=== PATIENT | female | born 1935 | race African-American/Black ===

== ENCOUNTER 2017-04-26 08:14 | Inpatient (IN) | payer MEDICARE, MEDICAID ==
[2017-04-26] MEDS ORDERED: Acetaminophen 1,000 MG in Premix Bag 1 BAG IVPB SCH (08:30)
[2017-04-26 08:55] LABS: Hematocrit 34.4 % (36.0-47.0); Mean Platelet Volume 9.9 fL (7.4-10.4); Red Blood Cell (RBC) Count 4.29 mill/uL (4.20-5.40)
[2017-04-26 08:56] LABS: Lactic Acid - Sepsis 1.9 mmol/L (0.5-2.2)
[2017-04-26 08:59] LABS: ALT (SGPT) 50 U/L (8-55); AST (SGOT) 117 U/L (5-34); Alkaline Phosphatase 55 U/L (40-150); Anion Gap 29 mmol/L (10-20); BUN (Urea Nitrogen) 76 mg/dL (9.8-20.1); Bilirubin, Total 0.6 mg/dL (0.2-1.2); Calc. Creatinine Clearance 0 mL/min (70-130); Calcium 9.4 mg/dL (7.8-10.44); Carbon Dioxide 17 mmol/L (23-31); Chloride 103 mmol/L (98-107); Estimated GFR-MDRD 5; Globulin 4.6 g/dL (2.4-3.5); Protein, Total 8.3 g/dL (6.0-8.3)
[2017-04-26 09:14] LABS: Anisocytosis SLIGHT = 6-15 cells (100X) (0-5/hpf); Hypochromia SLIGHT = 6-15 cells (100X) (0-5/hpf); Neutrophil 95 % (42-75); Target Cells SLIGHT = 2-5 cells (100X) (0-1/hpf)
[2017-04-26] MEDS ORDERED: Piperacillin/Tazobactam 3.375 GM in Sodium Chloride 0.9% 100 ML IVPB SCH (09:30)
--- NOTE | 2017-04-26 09:59 | RAD ---
RADIOGRAPH CHEST 1 VIEW: HISTORY: An 82-year-old female with fever. FINDINGS: The thoracic aorta is tortuous and ectatic. There is no evidence of air space density, pneumothorax , or pulmonary edema. The lateral costophrenic angles are sharp. There is no cardiomegaly. There is no interval change since 03/27/2017. IMPRESSION: 1) No acute pulmonary findings. 2) Ectasia of thoracic aorta. 3) Left subclavian dual lead pacemaker. vamsi [] POS: STEPHEN
[2017-04-26 10:29] LABS: Bilirubin Negative (Negative); Blood, Urine Moderate (Negative); Glucose, Urine (Dipstick) Negative (Negative); Ketone, Urine Negative (Negative); Nitrite Negative (Negative); Protein, Urine (Dipstick) 100 mg/dL (Neg-Trace); Urobilinogen 0.2 mg/dL (0.2-1.0)
[2017-04-26 10:31] LABS: Bacteria/HPF Rare-Few HPF (None Seen); Hyaline Casts/LPF 7-10 HYALINE CAST LPF (0-3 Hyaline); Squamous Epithelial 0-3 HPF (0-3)
[2017-04-26 10:44] LABS: Yeast-All Forms None Seen HPF (None Seen)
[2017-04-26 11:29] LABS: Prothrombin Time 63.7 SEC (12.0-14.7)
[2017-04-26 11:30] LABS: PTT 85.1 SEC (22.9-36.1)
[2017-04-26] MEDS ORDERED: Acetaminophen 650 MG/20.3 ML UDCUP PO PRN (12:26)
[2017-04-26] MEDS ORDERED: Acetaminophen 325 MG TAB PO PRN (12:26)
[2017-04-26] MEDS ORDERED: Vancomycin HCl 1 GM in Premix Bag 1 BAG IVPB SCH ×3 (12:30→21:00)
[2017-04-26] MEDS ORDERED: Meropenem 1 GM in Sodium Chloride 0.9% 100 ML IVPB SCH (12:30)
[2017-04-26] MEDS ORDERED: Vancomycin HCl 750 MG in Sodium Chloride 0.9% 250 ML 250 ML IVPB SCH (12:45)
[2017-04-26] MEDS ORDERED: Vancomycin HCl 500 MG in Sodium Chloride 0.9% 100 ML IVPB SCH (12:45)
[2017-04-26] MEDS ORDERED: Vancomycin HCl 1.25 GM in Sodium Chloride 0.9% 250 ML 250 ML IVPB SCH (12:45)
[2017-04-26] MEDS ORDERED: HOLD VANCOMYCIN FOR LEVEL >20 FS SCH (12:45)
[2017-04-26] MEDS ORDERED: Vancomycin Sliding Scale 1 EACH FS ONE (12:45)
[2017-04-26] MEDS ORDERED: Acetaminophen 1,000 MG in Premix Bag 1 BAG IVPB PRN ×2 (13:28→13:31)
[2017-04-26] MEDS ORDERED: Dextrose 5% in Water 1,000 ML IV PRN (13:45)
[2017-04-26] MEDS ORDERED: Insulin Regular 300 UNITS/3 ML VIAL SC PRN ×2 (13:45)
[2017-04-26] MEDS ORDERED: Ondansetron HCl/PF 4 MG/2 ML Vial IVP PRN (13:46)
[2017-04-26] MEDS ORDERED: Bisacodyl 10 MG SUPP PR PRN (13:46)
[2017-04-26] MEDS ORDERED: Ondansetron ODT 4 MG TAB PO PRN (13:46)
[2017-04-26] MEDS ORDERED: Diabetic Tussin 200 MG/10 ML UDCUP PO PRN (13:51)
[2017-04-26] MEDS ORDERED: Eucerin (Mineral Oil/Petrolatum,White) 30 gm Jar TOP PRN (13:51)
[2017-04-26] MEDS ORDERED: WARFARIN PO PRN ×2 (14:08→14:14)
--- NOTE | 2017-04-26 15:50 | HP ---
DATE OF ADMISSION: 04/26/2017 PRIMARY CARE PHYSICIAN: Anjali Mai M.D. The patient resides at [facility]. CODE STATUS: The patient is FULL CODE. This was confirmed with the daughter, who is the DPOA at th e bedside. CHIEF COMPLAINT: Fever. HISTORY OF PRESENT ILLNESS: The patient is an 82-year-old female with end-stage renal disease on he modialysis Thursday, Thursday, and Thursday; DVT and PE in the past, on chronic anticoagulation; scarlet ia; diabetes mellitus type 2; coronary artery disease and peripheral vascular disease, status post r ight pgyur-dho-rqho amputation. She was brought into the emergency room with fever. Please refer t o the recent discharge summary from 04/12/2017 for recent hospitalization. The patient was found to have fever along with low oxygen saturation, for which EMS was called. She had generalized chills. There was also altered mentation at the nursing facility. For this reason , she was brought to the emergency room. At the time of my evaluation, the patient is confused and not much information is available from the patient. In the emergency room, her initial vital signs showed temperature of 105.1 rectally, pulse of 73, bl ood pressure of 97/64 with lowest blood pressure of 72/48 in the emergency room with a pulse rate of 104, O2 saturation 100% on nonrebreather. A chest x-ray was negative for infiltrate. Urinalysis w as consistent with greater than 50 wbc's with large leukocyte esterase and nitrite negative. Lactic acid was normal. CRP was 15.1. She received vancomycin and Zosyn with 2 L IV fluid and IV Tylenol in the emergency room. PAST MEDICAL HISTORY: 1. End-stage renal disease on hemodialysis. The patient has been noncompliant with hemodialysis. She refused hemodialysis last Thursday. 2. History of DVT with suspected PE, on anticoagulation. 3. Diabetes mellitus type 2. 4. Dementia. 5. Gastroesophageal reflux disease. 6. Coronary artery disease. 7. Peripheral vascular disease, status post right crfem-gip-kcfy amputation. 8. Sick sinus syndrome, status post pacemaker. 9. Left eye blindness. 10. Thalassemia minor. PAST SURGICAL HISTORY: 1. Dialysis access. 2. Cholecystectomy. 3. Right yvjut-vip-mcvh amputation. 4. Appendectomy. ALLERGIES: The patient is allergic to OPTIFLUX DIALYSIS MEMBRANE. CURRENT HOME MEDICATIONS: To be verified with the nursing facility. SOCIAL HISTORY: The patient currently resides at [facility]. No tobacco, alcohol o r drug use. She has very good family support. The family was planning to start hospice service on the patient. She is FULL CODE. FAMILY HISTORY: Positive for diabetes. REVIEW OF SYSTEMS: Cannot be obtained from the patient due to current cognitive status. PHYSICAL EXAMINATION: VITAL SIGNS: As discussed above. GENERAL: An 82-year-old female, contracted, not following commands and confused. HEENT: Head is atraumatic, normocephalic. Sclerae are anicteric. Dry mucous membranes. No oral l esion. NECK: Supple, no JVD, no neck stiffness. LUNGS: Showed decreased air entry at bilateral bases. No rales or rhonchi. HEART: S1, S2 present, tachycardic, 2/6 systolic murmur over the mitral area. ABDOMEN: Soft, bowel sounds present, no rebound, guarding, or costovertebral angle tenderness appre ciated. EXTREMITIES: The patient is status post right yyurm-nqw-yqvd amputation. There was no swelling or tenderness noted in the left lower extremities. NEUROLOGIC: Could not be done due to reason discussed above. PSYCHIATRIC: Could not be done due to reason discussed above. SKIN: Warm and dry. LYMPH NODES: No palpable lymph nodes in the neck. PERIPHERAL VASCULAR: Radial pulses palpable bilaterally, low volume. LABORATORY FINDINGS: 1. CBC showed WBC 9 with 95% neutrophils, hemoglobin 10.7. 2. INR of 6.9. 3. Bicarbonate of 17 with a BUN of 76 and creatinine 9.58. 4. BNP around 1600. Cortisol was 24.2. 5. Ketones was 0.54. Chest x-ray by my review as discussed above. Telemetry monitoring by my review showed sinus tachycardia. IMPRESSION: 1. Severe sepsis with acute organ dysfunction secondary to urinary tract infection. 2. Hypotension, responding to IV fluids. 3. Sick sinus syndrome, status post pacemaker. 4. Coronary artery disease. 5. End-stage renal disease with hemodialysis Thursday, Thursday, and Thursday. The patient missed hem odialysis on last Thursday. 6. Diabetes mellitus type 2. 7. Anxiety and depression. 8. Peripheral vascular disease, status post right csmmy-esd-gfgd amputation. 9. Dementia per previous record. 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 11. Thalassemia minor. 12. Gastroesophageal reflux disease. 13. History of deep venous thrombosis and pulmonary embolism, on anticoagulation. The patient has supratherapeutic INR. 14. Starvation ketosis. 15. Metabolic acidosis, probably secondary to missed hemodialysis and sepsis. 16. Chronic anemia, probably secondary to renal insufficiency. PLAN: The patient will be monitored in the intermediate care unit. We will continue vancomycin and meropenem. We will get renal ultrasound in a.m. We will consult Critical Care as well as nephrolo gist. Gentle intravenous hydration. We will consider stress dose steroids if her blood pressure do es not respond to IV fluids. Repeat labs in a.m. Plan of care was discussed with the patient's family at the bedside. They stated understanding.
--- NOTE | 2017-04-26 16:20 | CON ---
DATE OF CONSULTATION: 04/26/2017 REASON FOR CONSULTATION: Urosepsis. HISTORY OF PRESENT ILLNESS: The patient is an 82-year-old female from a [place] [facility], who was broug ht to the hospital with altered mental status. She was felt to be an urosepsis and has been admitte d to the Intermediate Care Unit for care. The history was obtained from looking at old records and speaking with the patient's daughter who is at bedside. Apparently, Ms. Dominguez has been doing poorly for at least the last 3 or 4 days. Over t he last 24 hours, she has developed fever at baseline. I am not sure how communicative she is as I am getting different counts from family members. I know that she has been sick enough to where they were contemplating entering her into a hospice program. PAST MEDICAL HISTORY: 1. End-stage renal disease, requiring hemodialysis -- she apparently had been refusing dialysis all this week. 2. Dementia. 3. Diabetes mellitus type 2. 4. Gastroesophageal reflux. 5. Coronary artery disease. 6. Thalassemia minor. 7. Blindness. 8. Deep venous thrombosis. 9. Sick sinus syndrome. PAST SURGICAL HISTORY: 1. She has had a right qzhbq-ubj-teni amputation. 2. Right salpingo-oophorectomy. 3. Appendectomy. 4. Cholecystectomy. 5. Left forearm dialysis fistula. FAMILY MEDICAL HISTORY: Remarkable for diabetes. ALLERGIES: OPTIFLUX dialysis membrane. SOCIAL HISTORY: Nonsmoker, nondrinker. She lives in [facility] on [address] [place] [address]. MEDICATIONS PRIOR TO ADMISSION: Nepro Carb Steady 240 mL daily, DuoNeb 4 times daily, Keflex 500 mg t.i.d., Renvela 1 packet t.i.d., Senokot 2 tablets nightly as needed, MiraLax 17 grams daily, Zofra n 4 grams every 6 hours as needed, omeprazole 20 mg daily, Nephro-Leeann 1 tablet daily, iron sulfate 325 mg daily, Tylenol 650 mg every 4 hours as needed, Apresoline 50 mg t.i.d., Zoloft 100 mg daily, metoprolol 100 mg b.i.d., docusate 100 mg b.i.d., tramadol 50 mg t.i.d., guaifenesin 1 tablet b.i.d. , amlodipine 10 mg b.i.d., trazodone 50 mg nightly, Coumadin 5 mg daily, and atorvastatin 20 mg alison y. REVIEW OF SYSTEMS: Cannot be obtained from the patient as she has altered mental status. PHYSICAL EXAMINATION: VITAL SIGNS: Her temperature is 102.6, pulse 101, respirations 18, O2 sat 100% on 4 liters, blood p ressure 131/63. GENERAL: She is obtunded -Burmese female, who moans with stimulation, but cannot cooperate with exam. HEENT: Difficult to tell about pupillary reflex. Nose clear. Oropharynx dry. NECK: No JVD. LUNGS: Fairly clear anteriorly. CARDIOVASCULAR: S1, S2, irregularly irregular without murmur. ABDOMEN: Soft, nontender. EXTREMITIES: She has a right owmgu-wox-qnax amputation. She had a left forearm AV fistula. LABORATORY AND X-RAY FINDINGS: Chest x-ray showed no evidence of infiltrate. White blood cell coun t is 9.0, hematocrit 34.4, platelet count 202. INR 6.9. Sodium 144, potassium 4.8, chloride 103, C O2 17, BUN 76, creatinine 9.5, glucose 115, AST 117, ALT 50. C-reactive protein 15. Cortisol 24.2. Urinalysis showed too numerous to count white blood cells. Beta hydroxybutyrate 0.54. ASSESSMENT: 1. Urosepsis. 2. Altered mental status. 3. End-stage renal disease, requiring hemodialysis. 4. Dementia. 5. Severe debilitation. RECOMMENDATIONS: 1. I spoke with the family. Apparently, the patient is to remain FULL CODE for the time being, alt camryn I do think the family has understanding that the patient has near the end of her life. 2. Agree with the current antibiotics, Zosyn and vancomycin. 3. Withhold blood pressure medications. 4. Withhold anticoagulation until PT/INR corrected. Thank you for the referral. We will follow.
[2017-04-26] MEDS ORDERED: Meropenem 500 MG in Sodium Chloride 0.9% 100 ML IVPB SCH (17:00)
[2017-04-26] MEDS: Dextrose 5 % And 0.9 % NaCl 1,000 ML IV SCH (17:19)
[2017-04-26] MEDS: Famotidine 40 MG/4 ML VIAL SLOW IVP SCH (20:54)
[2017-04-26] MEDS ORDERED: Piperacillin/Tazobactam 2.25 GM in Sodium Chloride 0.9% 100 ML IVPB SCH (21:00)
[2017-04-27 04:39] LABS: #Lymphocytes 1.4 thou/uL (1.20-3.40); #Monocytes 1.2 thou/uL (0.11-0.59); #Neutrophils 6.4 thou/uL (1.40-6.50); %Basophils 0.4 % (0.0-1.0); %Eosinophils 0.5 % (0.0-10.0); %Lymphocytes 15.9 % (21.0-51.0); %Monocytes 13.1 % (0.0-10.0); Hematocrit 26.8 % (36.0-47.0); Red Blood Cell (RBC) Count 3.34 mill/uL (4.20-5.40); White Blood Cell (WBC) Count 9.1 thou/uL (4.8-10.8)
[2017-04-27 05:05] LABS: ALT (SGPT) 36 U/L (8-55); AST (SGOT) 79 U/L (5-34); Alkaline Phosphatase 38 U/L (40-150); Anion Gap 24 mmol/L (10-20); BUN (Urea Nitrogen) 88 mg/dL (9.8-20.1); Bilirubin, Total 0.5 mg/dL (0.2-1.2); Calc. Creatinine Clearance 4 mL/min (70-130); Calcium 7.9 mg/dL (7.8-10.44); Carbon Dioxide 13 mmol/L (23-31); Chloride 110 mmol/L (98-107); Estimated GFR-MDRD 5; Globulin 3.5 g/dL (2.4-3.5); Magnesium 2.6 mg/dL (1.6-2.6); Protein, Total 6.2 g/dL (6.0-8.3)
[2017-04-27 06:27] LABS: Prothrombin Time 73.6 SEC (12.0-14.7)
[2017-04-27] MEDS ORDERED: ADMIXTURE FEE IVPB SCH (08:45)
[2017-04-27] MEDS ORDERED: PHYTONADIONE IVPB SCH (08:45)
[2017-04-27] MEDS ORDERED: SODIUM CHLORIDE IVPB SCH (08:45)
--- NOTE | 2017-04-27 09:22 | PRG ---
DATE OF SERVICE: 04/27/2017 She is a little more alert than yesterday. PHYSICAL EXAMINATION: VITAL SIGNS: Temperature 99.7, pulse 60, respiration 29, O2 sat 100%, blood pressure 102/32. HEENT: Unremarkable except for tongue hanging out. NECK: No JVD. CHEST: Clear. CARDIAC: S1, S2 regular. ABDOMEN: Soft. EXTREMITIES: Left forearm fistula. LABORATORY DATA: White blood cell count 9.1, hematocrit 26.8, platelet count 133. INR today is 8.2 . Sodium 143, potassium 4.4, chloride 110, CO2 13, BUN 80, creatinine 9.3. Glucose 102. ASSESSMENT: 1. Urosepsis 2. Advanced age. 3. Severe deconditioning. 4. Coagulopathy. RECOMMENDATIONS: Given her severe coagulopathy I would go ahead and give her a little vitamin K. A gain, I will withhold anticoagulation.
[2017-04-27] MEDS: Dextrose 5 % And 0.9 % NaCl 1,000 ML IV SCH ×2 (11:16→18:11)
--- NOTE | 2017-04-27 13:29 | PDOC.PN ---
- Subjective Encounter Start Date: 04/27/17 Encounter Start Time: 12:45 -: non-verbal Patient seen and examined. Shivering improved. No overnight events - Objective MAR Reviewed: Yes Vital Signs & Weight: Vital Signs (12 hours) Temp Pulse Resp BP Pulse Ox 04/27/17 11:32 100.0 F H 63 18 113/15 L 04/27/17 08:00 100.0 F H 63 18 98 04/27/17 07:17 99.7 F H 60 20 102/11 L 100 04/27/17 04:29 99 04/27/17 04:10 99.5 F 61 20 109/32 L 99 04/27/17 02:00 99.9 F H 60 20 101/27 L 99 I&O: 04/26/17 04/27/17 04/28/17 06:59 06:59 06:59 Intake Total 960 Output Total 100 Balance 860 Result Diagrams: 04/27/17 04:18 04/27/17 04:18 Additional Labs: Accuchecks 04/27/17 04/27/17 04/27/17 11:17 04:11 00:13 POC Glucose 132 H 106 109 04/26/17 04/26/17 20:08 17:42 POC Glucose 95 95 EKG Reviewed by me: Yes (Tele SR) Phys Exam - Physical Examination Constitutional: NAD Respiratory: no wheezing, no rhonchi Cardiovascular: RRR, no rub Gastrointestinal: soft, positive bowel sounds Musculoskeletal: no edema Neurological: moves all 4 limbs (spont) Dx/Plan - Plan IMPRESSION: 1. Severe sepsis with acute organ dysfunction secondary to urinary tract infection.on Vanc/Meropenem 2. Hypotension, responding to IV fluids. 3. Sick sinus syndrome, status post pacemaker. 4. Coronary artery disease. 5. End-stage renal disease with hemodialysis Thursday, Thursday, and Thursday. The patient missed hemodialysis on last Thursday. 6. Diabetes mellitus type 2. on sliding scale 7. Anxiety and depression. 8. Peripheral vascular disease, status post right obzyk-zbe-rqdq amputation. 9. Dementia per previous record. 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 11. Thalassemia minor. 12. Gastroesophageal reflux disease. 13. History of deep venous thrombosis and pulmonary embolism, on anticoagulation with supratherapeutic INR. 14. Starvation ketosis. 15. Metabolic acidosis, probably secondary to missed hemodialysis and sepsis. 16. Chronic anemia, probably secondary to renal insufficiency. PLAN: * Critical care/Nephrology follwing * Reduce IVF to 50 ml/hr * AM labs * HD today per Nephrology * Receiving Vit K IV for elevated INR * Cont to monitor * Palliative care team following * Resume Tramadol/zoloft * Start modified diet per PATHOLOGY TECHNICIAN. * Cont other meds as below Review of Systems - Review of Systems Other: Cannot obtain due to current cognition - Medications/Allergies Allergies/Adverse Reactions: Allergies Allergy/AdvReac Type Severity Reaction Status Date / Time [employer] DIALYSIS MEMBRANE Allergy Severe Anaphylaxis Uncoded 04/26/17 12:23 Medications: Current Medications Acetaminophen (Tylenol) 650 mg HI Q4H PRN PRN Reason: Headache/Fever or Pain Acetaminophen (Tylenol) 650 mg PO Q4H PRN PRN Reason: Headache/Fever or Pain Albuterol/Ipratropium (Duoneb) 3 ml NEB [id number] PRN PRN Reason: SOB &/or Wheezing Bisacodyl (Dulcolax) 10 mg HI Q24H PRN PRN Reason: Constipation Dextrose/Water (Dextrose 50%) 25 gm SLOW IVP PRN PRN PRN Reason: Hypoglycemia Famotidine (Pepcid) 20 mg PO BID SHANA Glucagon (Glucagon) 1 mg IM PRN PRN PRN Reason: Hypoglycemia Guaifenesin (Robitussin Sf) 200 mg PO Q4H PRN PRN Reason: Cough Vancomycin HCl 1.25 gm/ Sodium (Chloride) 250 mls @ 166.667 mls/hr IVPB WILLCALL SHANA Vancomycin HCl 1 gm/ Device 200 mls @ 200 mls/hr IVPB WILLCALL SHANA Vancomycin HCl 750 mg/ Sodium (Chloride) 250 mls @ 250 mls/hr IVPB WILLCALL SHANA Vancomycin HCl 500 mg/ Sodium (Chloride) 100 mls @ 100 mls/hr IVPB WILLCALL SHANA Dextrose/Water (D5w) 1,000 mls @ 0 mls/hr IV .Q0M PRN; As Directed PRN Reason: Hypoglycemia Meropenem 500 mg/ Sodium (Chloride) 100 mls @ 200 mls/hr IVPB Q24HR SHANA Last Admin: 04/26/17 17:19 Dose: 100 mls Dextrose/Sodium Chloride (D5 0.9% Ns) 1,000 mls @ 50 mls/hr IV .Q20H [facility] Insulin Human Regular (Humulin R) 0 units SC .MILD SLIDING SCALE PRN PRN Reason: Mild Correctional Scale Insulin Human Regular (Humulin R) 0 units SC .BEDTIME SLIDING SC PRN PRN Reason: Bedtime Correctional Scale Mineral Oil/White Petrolatum (Eucerin Cream) 0 gm TOP BIDPRN PRN PRN Reason: Dry Skin Miscellaneous Medication (Pharmacy To Dose) 1 each IVPB PRN PRN PRN Reason: Pharmacy to dose Miscellaneous Medication (Pharmacy To Dose) 1 each PO PRN PRN PRN Reason: GOAL INR = 2-3 Hold Vancomycin For (Level >20) 0 each FS .AT DIALYSIS SHANA Ondansetron HCl (Zofran Odt) 4 mg PO Q6H PRN PRN Reason: Nausea/Vomiting Ondansetron HCl (Zofran) 4 mg IVP Q6H PRN PRN Reason: Nausea/Vomiting Saccharomyces Boulardii (Florastor) 250 mg PO DAILY SHA[facility] Sertraline HCl (Zoloft) 100 mg PO DAILY [facility] Tramadol HCl (Ultram) 50 mg PO Q4H PRN PRN Reason: pain
--- NOTE | 2017-04-27 14:56 | ULT ---
COMPLETE BILATERAL RENAL ULTRASOUND: HISTORY: An 82-year-old female with sepsis and urinary tract infection with concern for obstructive uropathy. FINDINGS: The right kidney measures 8.5 x 5.3 x 4.5 cm and contains a 1.2 cm cyst. The left kidney is smaller , measuring 6.9 x 3.9 x 3.9 cm. The bladder is empty with a Mclean catheter in place. Both kidneys show marked renal cortical hyperechogenicity, consistent with nonspecific chronic renal disease. IMPRESSION: 1. Small kidneys bilaterally, particularly on the left side, with increased cortical echogenicity, consistent with nonspecific chronic renal disease. 2. No hydronephrosis. POS: DAMIAN
[2017-04-27 15:11] LABS: Vancomycin, Random 13.6 ug/mL (See Comment)
[2017-04-27 16:25] LABS: Prothrombin Time 28.7 SEC (12.0-14.7)
[2017-04-27] MEDS ORDERED: Warfarin Sodium 3 MG TAB PO SCH (18:00)
[2017-04-27] MEDS: Meropenem 500 MG in Sodium Chloride 0.9% 100 ML IVPB SCH (18:11)
[2017-04-27] MEDS: Famotidine 40 MG/4 ML VIAL SLOW IVP SCH (18:19)
[2017-04-27] MEDS: Famotidine 20 MG TAB PO SCH (21:02)
[2017-04-27] MEDS: Acetaminophen 325 MG TAB PO PRN (21:03)
[2017-04-28 04:32] LABS: Prothrombin Time 20.2 SEC (12.0-14.7)
[2017-04-28 04:42] LABS: Red Blood Cell (RBC) Count 3.22 mill/uL (4.20-5.40); White Blood Cell (WBC) Count 8.9 thou/uL (4.8-10.8)
[2017-04-28 04:43] LABS: #Eosinphils 0.1 thou/uL (0.0-0.7); #Lymphocytes 1.1 thou/uL (1.20-3.40); #Monocytes 0.9 thou/uL (0.11-0.59); #Neutrophils 6.8 thou/uL (1.40-6.50); %Basophils 0.3 % (0.0-1.0); %Eosinophils 1.2 % (0.0-10.0); %Monocytes 9.9 % (0.0-10.0); Hematocrit 26.6 % (36.0-47.0); Mean Platelet Volume 10.4 fL (7.4-10.4)
[2017-04-28 04:57] LABS: Anion Gap 16 mmol/L (10-20); BUN (Urea Nitrogen) 35 mg/dL (9.8-20.1); BUN/Creatinine Ratio 7.63; Calc. Creatinine Clearance 7 mL/min (70-130); Calcium 8.4 mg/dL (7.8-10.44); Carbon Dioxide 23 mmol/L (23-31); Chloride 107 mmol/L (98-107); Estimated GFR-MDRD 11; Magnesium 2.1 mg/dL (1.6-2.6); Phosphorus 3.3 mg/dL (2.3-4.7)
--- NOTE | 2017-04-28 08:13 | PRG ---
DATE OF SERVICE: 04/28/2017 The patient is sleeping. She is much calmer than yesterday. PHYSICAL EXAMINATION: VITAL SIGNS: Temperature 100.2, pulse 68, respirations 20, O2 sat 98% on 4 liters, blood pressure 1 30/45. HEENT: Unremarkable except for dry oral mucous membranes. NECK: No JVD. CHEST: Fairly clear. CARDIAC: S1 and S2 regular. ABDOMEN: Soft. EXTREMITIES: No edema. LABORATORY DATA: White blood cell count 8.9, hematocrit 26.6, platelet count 148. INR 1.7. Sodium 143, potassium 3.4, chloride 107, CO2 23, BUN 35, creatinine 4.5, glucose 117. ASSESSMENT: 1. Urosepsis. 2. Hypotension, which has responded to IV fluids. 3. Sick sinus syndrome. 4. End-stage renal disease requiring 3 times weekly hemodialysis. 5. Diabetes mellitus. 6. Dementia. 7. Thalassemia minor. 8. Protein calorie malnutrition. 9. Elevated INR, which is corrected with vitamin K. PLAN: 1. Continue IV antibiotics. 2. Dialysis as needed. 3. Could transfer to the medical floor at any time from my standpoint.
[2017-04-28] MEDS: Saccharomyces boulardii 250 MG CAP PO SCH (09:21)
[2017-04-28] MEDS: Famotidine 20 MG TAB PO SCH ×2 (09:21→20:22)
[2017-04-28] MEDS: Acetaminophen 325 MG TAB PO PRN (09:27)
[2017-04-28] MEDS ORDERED: Fentanyl 100 MCG/2 ML VIAL SLOW IVP SCH (11:15)
[2017-04-28] MEDS: Dextrose 5 % And 0.9 % NaCl 1,000 ML IV SCH ×2 (11:43→17:33)
--- NOTE | 2017-04-28 15:36 | PDOC.PN ---
- Subjective Encounter Start Date: 04/28/17 Encounter Start Time: 12:00 Patient seen and examined. No new complaints. No overnight events. c/o gen pain. - Objective Resuscitation Status: Resuscitation Status DNR:Do Not Resuscitate MAR Reviewed: Yes Vital Signs & Weight: Vital Signs (12 hours) Temp Pulse Resp BP BP Pulse Ox 04/28/17 13:05 98.5 F 88 20 137/66 98 04/28/17 12:00 100.1 F H 69 20 145/35 H 100 04/28/17 08:00 100.3 F H 68 20 147/34 H 100 04/28/17 04:00 100.2 F H 68 20 138/45 L 98 Weight Admit Weight 113 lb 8 oz Weight 119 lb 1.6 oz I&O: 04/27/17 04/28/17 04/29/17 06:59 06:59 06:59 Intake Total 960 1570 Output Total 100 80 Balance 860 1490 Result Diagrams: 04/29/17 04:02 04/29/17 04:02 Additional Labs: Accuchecks 04/28/17 04/27/17 04/27/17 09:25 21:12 16:47 POC Glucose 109 172 H 105 EKG Reviewed by me: Yes (Tele SR) Phys Exam - Physical Examination Patient in distress due to pain - mainly in left arm - chronic per family Respiratory: no wheezing, no rhonchi Cardiovascular: RRR, no rub Gastrointestinal: soft, non-tender, positive bowel sounds Musculoskeletal: no edema Neurological: moves all 4 limbs Dx/Plan - Plan IMPRESSION: 1. Severe sepsis with acute organ dysfunction secondary to urinary tract infection.on Vanc/Meropenem 2. Hypotension, responding to IV fluids. 3. Sick sinus syndrome, status post pacemaker. 4. Coronary artery disease. 5. End-stage renal disease with hemodialysis Thursday, Thursday, and Thursday. The patient missed hemodialysis on last Thursday. 6. Diabetes mellitus type 2. on sliding scale 7. Anxiety and depression. 8. Peripheral vascular disease, status post right vsbnv-lqn-sqwq amputation. 9. Dementia per previous record. 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 11. Thalassemia minor. 12. Gastroesophageal reflux disease. 13. History of deep venous thrombosis and pulmonary embolism, on anticoagulation with supratherapeutic INR. 14. Starvation ketosis. 15. Metabolic acidosis, probably secondary to missed hemodialysis and sepsis. 16. Chronic anemia, probably secondary to renal insufficiency. 17. Moderate Protein Calorie malnutrition. PLAN: * Blood cultures negative * Urine cultures pending * Critical care/Nephrology following * Cont IVF to 50 ml/hr due to poor oral intake * AM labs * HD today per Nephrology * Warfarin restarted * Cont to monitor * Palliative care team following - DNR - confirmed with family/DPOA * Try low dose Fentanyl - family agreed. * Cont modified diet per CREATIVE RECRUITER. * Cont other meds as below Review of Systems - Review of Systems Other: Cannot be reliably obtained due to current mentation. - Medications/Allergies Allergies/Adverse Reactions: Allergies Allergy/AdvReac Type Severity Reaction Status Date / Time [employer] DIALYS[employer]BRANE Allergy Severe Anaphylaxis Uncoded 04/26/17 12:23 Medications: Current Medications Acetaminophen (Tylenol) 650 mg ID Q4H PRN PRN Reason: Headache/Fever or Pain Acetaminophen (Tylenol) 650 mg PO Q4H PRN PRN Reason: Headache/Fever or Pain Last Admin: 04/28/17 09:27 Dose: 650 mg Albuterol/Ipratropium (Duoneb) 3 ml NEB [id number] PRN PRN Reason: SOB &/or Wheezing Bisacodyl (Dulcolax) 10 mg ID Q24H PRN PRN Reason: Constipation Dextrose/Water (Dextrose 50%) 25 gm SLOW IVP PRN PRN PRN Reason: Hypoglycemia Famotidine (Pepcid) 20 mg PO BID SHANA Last Admin: 04/28/17 09:21 Dose: 20 mg Glucagon (Glucagon) 1 mg IM PRN PRN PRN Reason: Hypoglycemia Guaifenesin (Robitussin Sf) 200 mg PO Q4H PRN PRN Reason: Cough Vancomycin HCl 1.25 gm/ Sodium (Chloride) 250 mls @ 166.667 mls/hr IVPB WILLCALL SHANA Vancomycin HCl 1 gm/ Device 200 mls @ 200 mls/hr IVPB WILLCALL SHANA Vancomycin HCl 750 mg/ Sodium (Chloride) 250 mls @ 250 mls/hr IVPB WILLCALL SHANA Vancomycin HCl 500 mg/ Sodium (Chloride) 100 mls @ 100 mls/hr IVPB WILLCALL SHANA Dextrose/Water (D5w) 1,000 mls @ 0 mls/hr IV .Q0M PRN; As Directed PRN Reason: Hypoglycemia Dextrose/Sodium Chloride (D5 0.9% Ns) 1,000 mls @ 50 mls/hr IV .Q20H [facility] Last Admin: 04/28/17 11:43 Dose: Not Given Meropenem 500 mg/ Sodium (Chloride) 100 mls @ 200 mls/hr IVPB 1800 [facility] Last Admin: 04/27/17 18:11 Dose: 100 mls Insulin Human Regular (Humulin R) 0 units SC .MILD SLIDING SCALE PRN PRN Reason: Mild Correctional Scale Insulin Human Regular (Humulin R) 0 units SC .BEDTIME SLIDING SC PRN PRN Reason: Bedtime Correctional Scale Metoprolol Tartrate (Lopressor) 12.5 mg PO BID [facility] Mineral Oil/White Petrolatum (Eucerin Cream) 0 gm TOP BIDPRN PRN PRN Reason: Dry Skin Miscellaneous Medication (Pharmacy To Dose) 1 each IVPB PRN PRN PRN Reason: Pharmacy to dose Miscellaneous Medication (Pharmacy To Dose) 1 each PO PRN PRN PRN Reason: GOAL INR = 2-3 Hold Vancomycin For (Level >20) 0 each FS .AT DIALYSIS [facility] Ondansetron HCl (Zofran Odt) 4 mg PO Q6H PRN PRN Reason: Nausea/Vomiting Ondansetron HCl (Zofran) 4 mg IVP Q6H PRN PRN Reason: Nausea/Vomiting Saccharomyces Boulardii (Florastor) 250 mg PO DAILY [facility] Last Admin: 04/28/17 09:21 Dose: 250 mg Sertraline HCl (Zoloft) 100 mg PO DAILY [facility] Last Admin: 04/28/17 09:21 Dose: 100 mg Sevelamer Carbonate (Renvela) mg PO TID-[facility] Sodium Chloride (Flush - Normal Saline) 10 ml IVF Q12HR [facility] Sodium Chloride (Flush - Normal Saline) 10 ml IVF PRN PRN PRN Reason: Saline Flush Tramadol HCl (Ultram) 50 mg PO Q4H PRN PRN Reason: pain Warfarin Sodium (Coumadin) 3 mg PO 1700 [facility]
[2017-04-28] MEDS ORDERED: Fentanyl 100 MCG/2 ML VIAL SLOW IVP PRN ×2 (15:39→15:44)
[2017-04-28] MEDS ORDERED: Warfarin Sodium 3 MG TAB PO SCH (17:00)
[2017-04-28] MEDS: Meropenem 500 MG in Sodium Chloride 0.9% 100 ML IVPB SCH (17:32)
[2017-04-28] MEDS: Sevelamer Carbonate 800 MG TAB PO SCH (17:33)
[2017-04-28] MEDS: Metoprolol Tartrate 25 MG TAB PO SCH (20:22)
[2017-04-29 05:15] LABS: Prothrombin Time 18.8 SEC (12.0-14.7)
[2017-04-29 05:22] LABS: #Eosinphils 0.1 thou/uL (0.0-0.7); #Lymphocytes 0.7 thou/uL (1.20-3.40); #Monocytes 0.9 thou/uL (0.11-0.59); #Neutrophils 6.1 thou/uL (1.40-6.50); %Basophils 0.1 % (0.0-1.0); %Eosinophils 1.1 % (0.0-10.0); %Lymphocytes 8.8 % (21.0-51.0); %Monocytes 11.2 % (0.0-10.0); Hematocrit 24.9 % (36.0-47.0); Mean Platelet Volume 10.7 fL (7.4-10.4); Red Blood Cell (RBC) Count 3.01 mill/uL (4.20-5.40); White Blood Cell (WBC) Count 7.8 thou/uL (4.8-10.8)
[2017-04-29 05:31] LABS: Anion Gap 17 mmol/L (10-20); BUN (Urea Nitrogen) 42 mg/dL (9.8-20.1); BUN/Creatinine Ratio 7.53; Calc. Creatinine Clearance 6 mL/min (70-130); Calcium 8.2 mg/dL (7.8-10.44); Carbon Dioxide 21 mmol/L (23-31); Chloride 111 mmol/L (98-107); Estimated GFR-MDRD 9; Phosphorus 4.2 mg/dL (2.3-4.7)
[2017-04-29] MEDS: traMADol HCl 50 MG TAB PO PRN ×3 (08:37→23:04)
[2017-04-29] MEDS: Famotidine 20 MG TAB PO SCH ×2 (08:38→20:54)
[2017-04-29] MEDS: Metoprolol Tartrate 25 MG TAB PO SCH ×2 (08:38→20:55)
[2017-04-29] MEDS: Saccharomyces boulardii 250 MG CAP PO SCH (08:38)
[2017-04-29] MEDS: Sevelamer Carbonate 800 MG TAB PO SCH ×3 (08:38→18:10)
--- NOTE | 2017-04-29 08:44 | PRG ---
DATE OF SERVICE: 04/29/2017 Ms. Dominguez remains in the hospital for treatment of her multiple medical problems. PHYSICAL EXAMINATION: VITAL SIGNS: On exam today, her temperature is 99.7 with a T-max of 100.1 yesterday, pulse 98, resp irations 20, O2 sat 100% on 2 liters, blood pressure 167/44. Total intake for the last 24 hours 157 0, output 80. HEENT: Unremarkable except for dry tongue. NECK: No JVD. LUNGS: Clear, but distant breath sounds. CARDIAC: S1 and S2 regular. ABDOMEN: Soft. EXTREMITIES: She has swelling in her left hand. LABORATORY DATA: Sodium 146, potassium 3.4, chloride 111, CO2 21, BUN 42, creatinine 5.5, glucose 9 3. White blood cell count 7.8, hematocrit 24.9, platelet count 164. ASSESSMENT: 1. Urosepsis. 2. End-stage renal disease requiring dialysis. 3. Sick sinus syndrome. 4. Hypotension, which has resolved with IV fluids. 5. Diabetes mellitus. 6. Dementia. 7. Thalassemia minor. 8. Protein calorie malnutrition. 9. Elevated INR, which corrected with vitamin K. PLAN: 1. Continue antibiotics. 2. She is continuing dialysis. 3. The patient is contemplating hospice. She might actually benefit from that rather than continui ng with conventional medical therapy.
[2017-04-29] MEDS: Dextrose 5 %-0.45 % NaCl 1,000 ML IV SCH ×2 (08:54→23:30)
--- NOTE | 2017-04-29 10:33 | PQF ---
Date: 04-29-17 ATTN: DR. CASANDRA PATEL Please lauren a box (or boxes) below if a more specific term indicating a diagnosis and/or acuity level for this condition can be identified. Please exercise your independent, professional judgment in responding to the clarification form. Clinical indicators are provided on the bottom of this form for your review. Thank you. [x ] Protein Calorie Malnutrition: [ ] Mild [ x] Moderate [ ] Severe [ ] Unspecified [ ] Other Malnutrition (please specify) __ [ ] No diagnosis of Malnutrition [ ] Does not apply to this patient [ ] Unable to determine [ ] Other diagnosis: [ ] Present on Admission (POA); [ ] Yes [ ] No [ ] Unable to determine BMI Less than 19 Under weight 19 - 24.9 Healthy 25.0 - 29.9 Slightly Overweight 30.0 - 34.9 Obese 35.0 - 39.9 Severely Obese 40.0 and Over Morbidly Obese Values Commonly Used to Grade the Severity of Protein-Energy Malnutrition Measurement Normal Mild Moderate Severe Normal weight (%) 35436 8590 7585 < 75 Body mass index 1924 1818.9 1617.9 < 16 Serum albumin (g/dL) 3.55.0 3.13.4 2.43.0 < 2.4 Serum transferrin (mg/dL) 399237 259959 215484 < 150 Total lymphocyte count (per mm3) 57491323 47555649 800 1500 < 800 Delayed hypersensitivity index 2 2 1 0 From The Merck Manual of Diagnosis and Therapy, Edition 18, edited by Lauren Herrera. Copyright 2006 by [employer], [place]. Available at : http://www.merck.com/mmpe/sec01/ch002/kt666b.html. Accessed 03/03/07. The following CLINICAL INDICATORS - Signs / Symptoms are documented in the medical record: Documentation reflects BMI of 22.1 ALBUMIN: 04-27-17: 2.7, 04-28-17l 2.8, 04-29-17: 2.[address] FREY 04-28-17: PROTEIN CALORIE MALNUTRITION, SEVERE DECONDITIONING , NURSE NOTE 04-29-17: RIGHT BACK PRESSURE ULCER, STAGE 1, R HIP PRESSURE ULCER , STAGE 1 RISKS: H&P: HX OFD CAD, CONTRACTURES, PVD S/P BKA R, DEMENTIA, DM 2, H&P: STARVATION KETOSIS TREATMENT: DIETARY CONSULT 04-27-17: PT DISORIENTED, PER FAMILY PT IS FROM [place] , AND WAS RECEIVING MECHANICAL SOFT TEXTURES, FAMILY BELIEVES FLUID INTAKE WAS DECREASED A FEW DAYS TEAM MEMBER, CHANGE DIET TO A CONSISTENT CARB / HEART HEALTHY DIET WITH SAFEST TEXTURE, ADD NEPHRO SUPPLEMENTS ONCE DAILY (This form is maintained as a part of the permanent medical record) 2014 [employer]. All Rights Reserved RANJANA [email or web address] Office: [phone] DELBERT
--- NOTE | 2017-04-29 11:48 | PDOC.PN ---
- Subjective Encounter Start Date: 04/29/17 Encounter Start Time: 08:50 -: old records requested/rev pt is moaning in discomfort, daughter is bedside, pt did not open eye just moaning - Objective Resuscitation Status: Resuscitation Status DNR:Do Not Resuscitate MAR Reviewed: Yes Vital Signs & Weight: Vital Signs (12 hours) Temp Pulse Resp BP BP Pulse Ox 04/29/17 08:00 99.0 F 107 H 22 H 133/53 L 100 04/29/17 04:11 99.7 F H 98 20 167/44 H 100 04/29/17 01:32 96 04/29/17 00:00 99.6 F 84 18 101/47 L 100 Weight Admit Weight 113 lb 8 oz Weight 119 lb 1.6 oz I&O: 04/28/17 04/29/17 04/30/17 06:59 06:59 06:59 Intake Total 1570 360 Output Total 80 75 Balance 1490 285 Result Diagrams: 04/29/17 04:02 04/29/17 04:02 Additional Labs: Accuchecks 04/29/17 04/29/17 04/29/17 10:59 08:11 04:13 POC Glucose 168 H 129 H 96 04/28/17 04/28/17 19:32 16:37 POC Glucose 146 H 139 H Phys Exam - Physical Examination moaning and distressed HEENT: PERRLA dry mm Neck: no JVD, supple Respiratory: no wheezing, no rales, no rhonchi Cardiovascular: RRR, no significant murmur Gastrointestinal: soft, non-tender, no distention Musculoskeletal: no edema right BKA contracture noted, 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 Lymphatic: no nodes Skin: no rash, normal turgor Dx/Plan (1) Encephalopathy acute Code(s): G93.40 - ENCEPHALOPATHY, UNSPECIFIED Status: Acute (2) Metabolic acidosis Code(s): E87.2 - ACIDOSIS Status: Acute (3) Sepsis with acute organ dysfunction Code(s): A41.9 - SEPSIS, UNSPECIFIED ORGANISM; R65.20 - SEVERE SEPSIS WITHOUT SEPTIC SHOCK Status: Acute (4) Starvation ketoacidosis Code(s): E87.2 - ACIDOSIS Status: Acute (5) Anemia of renal disease Code(s): D63.1 - ANEMIA IN CHRONIC KIDNEY DISEASE Status: Chronic (6) Anxiety and depression Code(s): F41.8 - OTHER SPECIFIED ANXIETY DISORDERS Status: Chronic (7) CAD (coronary artery disease) Code(s): I25.10 - ATHSCL HEART DISEASE OF [place] CORONARY ARTERY W/O ANG PCTRS Status: Chronic (8) Chronic anticoagulation Code(s): Z79.01 - METAL ANNEALER (CURRENT) USE OF ANTICOAGULANTS Status: Chronic (9) Depression Code(s): F32.9 - MAJOR DEPRESSIVE DISORDER, SINGLE EPISODE, UNSPECIFIED Status : Chronic (10) Diabetes mellitus type 2 Code(s): E11.9 - TYPE 2 DIABETES MELLITUS WITHOUT COMPLICATIONS Status: Chronic Comment: (11) Dyslipidemia Code(s): E78.5 - HYPERLIPIDEMIA, UNSPECIFIED Status: Chronic (12) ESRD (end stage renal disease) on dialysis Code(s): N18.6 - END STAGE RENAL DISEASE; Z99.2 - DEPENDENCE ON RENAL DIALYSIS Status: Chronic Comment: Dr Rivera (13) GERD (gastroesophageal reflux disease) Code(s): K21.9 - GASTRO-ESOPHAGEAL REFLUX DISEASE WITHOUT ESOPHAGITIS Status: Chronic (14) H/O deep venous thrombosis Code(s): Z86.718 - PERSONAL HISTORY OF OTHER VENOUS THROMBOSIS AND EMBOLISM Status: Chronic (15) H/O sick sinus syndrome Code(s): Z86.79 - PERSONAL HISTORY OF OTHER DISEASES OF THE CIRCULATORY SYSTEM Status: Chronic (16) Hx of below knee amputation Code(s): Z89.519 - ACQUIRED ABSENCE OF UNSPECIFIED LEG BELOW KNEE Status: Chronic Qualifiers: Laterality: right Qualified Code(s): Z89.511 - Acquired absence of right leg below knee (17) Hypertension Code(s): I10 - ESSENTIAL (PRIMARY) HYPERTENSION Status: Chronic (18) PVD (peripheral vascular disease) Code(s): I73.9 - PERIPHERAL VASCULAR DISEASE, UNSPECIFIED Status: Chronic (19) Secondary hyperparathyroidism of renal origin Code(s): N25.81 - SECONDARY HYPERPARATHYROIDISM OF RENAL ORIGIN Status: Chronic (20) Swallowing dysfunction Code(s): R13.10 - DYSPHAGIA, UNSPECIFIED Status: Chronic (21) Thalassemia minor Code(s): D56.3 - THALASSEMIA MINOR Status: Chronic (22) Hypotension Status: Resolved (23) Warfarin-induced coagulopathy Code(s): D68.9 - COAGULATION DEFECT, UNSPECIFIED; T45.515A - ADVERSE EFFECT OF ANTICOAGULANTS, INITIAL ENCOUNTER Status: Resolved - Plan cont current plan of care, plan discussed w/ family, social welfare administrator * daughter is ok with hospice but she thinks that her mom wanted to continue HD , 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 Review of Systems - Review of Systems Other: unable to review as pt is demented and not reliable - Medications/Allergies Allergies/Adverse Reactions: Allergies Allergy/AdvReac Type Severity Reaction Status Date / Time [facility] Allergy Severe Anaphylaxis Uncoded 04/26/17 12:23 Medications: Current Medications Acetaminophen (Tylenol) 650 mg MT Q4H PRN PRN Reason: Headache/Fever or Pain Acetaminophen (Tylenol) 650 mg PO Q4H PRN PRN Reason: Headache/Fever or Pain Last Admin: 04/28/17 09:27 Dose: 650 mg Albuterol/Ipratropium (Duoneb) 3 ml NEB [id number] PRN PRN Reason: SOB &/or Wheezing Bisacodyl (Dulcolax) 10 mg MT Q24H PRN PRN Reason: Constipation Dextrose/Water (Dextrose 50%) 25 gm SLOW IVP PRN PRN PRN Reason: Hypoglycemia Famotidine (Pepcid) 20 mg PO BID [facility] Last Admin: 04/29/17 08:38 Dose: 20 mg Fentanyl (Duragesic) 12 mcg TD Q3D [facility] Last Admin: 04/28/17 16:48 Dose: 12 mcg Glucagon (Glucagon) 1 mg IM PRN PRN PRN Reason: Hypoglycemia Guaifenesin (Robitussin Sf) 200 mg PO Q4H PRN PRN Reason: Cough Vancomycin HCl 1.25 gm/ Sodium (Chloride) 250 mls @ 166.667 mls/hr IVPB [facility]CALL [facility] Vancomycin HCl 1 gm/ Device 200 mls @ 200 mls/hr IVPB [facility] Vancomycin HCl 750 mg/ Sodium (Chloride) 250 mls @ 250 mls/hr IVPB [facility] Vancomycin HCl 500 mg/ Sodium (Chloride) 100 mls @ 100 mls/hr IVPB [facility] Dextrose/Water (D5w) 1,000 mls @ 0 mls/hr IV .Q0M PRN; As Directed PRN Reason: Hypoglycemia Meropenem 500 mg/ Sodium (Chloride) 100 mls @ 200 mls/hr IVPB 1800 [facility] Last Admin: 04/28/17 17:32 Dose: 100 mls Dextrose/Sodium Chloride (D5 1/2 Ns) 1,000 mls @ 40 mls/hr IV .Q24H [facility] Last Admin: 04/29/17 08:54 Dose: 1,000 mls Insulin Human Regular (Humulin R) 0 units SC .MILD SLIDING SCALE PRN PRN Reason: Mild Correctional Scale Insulin Human Regular (Humulin R) 0 units SC .BEDTIME SLIDING SC PRN PRN Reason: Bedtime Correctional Scale Metoprolol Tartrate (Lopressor) 12.5 mg PO BID [facility] Last Admin: 04/29/17 08:38 Dose: 12.5 mg Mineral Oil/White Petrolatum (Eucerin Cream) 0 gm TOP BIDPRN PRN PRN Reason: Dry Skin Miscellaneous Medication (Pharmacy To Dose) 1 each IVPB PRN PRN PRN Reason: Pharmacy to dose Miscellaneous Medication (Pharmacy To Dose) 1 each PO PRN PRN PRN Reason: GOAL INR = 2-3 Hold Vancomycin For (Level >20) 0 each FS .AT DIALYSIS [facility] Ondansetron HCl (Zofran Odt) 4 mg PO Q6H PRN PRN Reason: Nausea/Vomiting Ondansetron HCl (Zofran) 4 mg IVP Q6H PRN PRN Reason: Nausea/Vomiting Saccharomyces Boulardii (Florastor) 250 mg PO DAILY [facility] Last Admin: 04/29/17 08:38 Dose: 250 mg Sertraline HCl (Zoloft) 100 mg PO DAILY [facility] Last Admin: 04/29/17 08:38 Dose: 100 mg Sevelamer Carbonate (Renvela) 800 mg PO TID-WM [facility] Last Admin: 04/29/17 08:38 Dose: 800 mg Sodium Chloride (Flush - Normal Saline) 10 ml IVF Q12HR [facility] Last Admin: 04/29/17 08:56 Dose: Not Given Sodium Chloride (Flush - Normal Saline) 10 ml IVF PRN PRN PRN Reason: Saline Flush Tramadol HCl (Ultram) 50 mg PO Q4H PRN PRN Reason: pain Last Admin: 04/29/17 08:37 Dose: 50 mg Warfarin Sodium (Coumadin) 3 mg PO 1700 [facility] Last Admin: 04/28/17 17:33 Dose: 3 mg
[2017-04-29 12:27] LABS: Vancomycin, Random 9.5 ug/mL (See Comment)
[2017-04-29] MEDS: Meropenem 500 MG in Sodium Chloride 0.9% 100 ML IVPB SCH (18:41)
[2017-04-29] MEDS: Warfarin Sodium 5 MG TAB PO SCH (18:42)
[2017-04-30 06:04] LABS: Prothrombin Time 19.2 SEC (12.0-14.7)
[2017-04-30] MEDS: Saccharomyces boulardii 250 MG CAP PO SCH (08:47)
[2017-04-30] MEDS: Sevelamer Carbonate 800 MG TAB PO SCH ×3 (08:47→17:02)
[2017-04-30] MEDS: Famotidine 20 MG TAB PO SCH ×2 (08:47→19:59)
[2017-04-30] MEDS: Metoprolol Tartrate 25 MG TAB PO SCH ×2 (08:48→19:58)
[2017-04-30] MEDS: traMADol HCl 50 MG TAB PO PRN ×2 (11:48→19:59)
[2017-04-30] MEDS: Epoetin (ESRD) 20,000 UNITS/ML SC SCH (12:01)
--- NOTE | 2017-04-30 13:16 | PDOC.PN ---
- Subjective Encounter Start Date: 04/30/17 Encounter Start Time: 10:20 no overall change in condition, still moaning, family bedside - Objective Resuscitation Status: Resuscitation Status DNR:Do Not Resuscitate MAR Reviewed: Yes Vital Signs & Weight: Vital Signs (12 hours) Temp Pulse Resp BP BP Pulse Ox 04/30/17 08:00 97.3 F L 71 20 113/40 L 100 04/30/17 04:00 98.6 F 78 16 140/82 100 Weight Admit Weight 113 lb 8 oz Weight 119 lb 1.6 oz I&O: 04/29/17 04/30/17 05/01/17 06:59 06:59 06:59 Intake Total 360 580 480 Output Total 75 50 Balance 285 530 480 Result Diagrams: 04/29/17 04:02 04/29/17 04:02 Additional Labs: Accuchecks 04/30/17 04/29/17 05:02 20:29 POC Glucose 123 H 120 H Phys Exam - Physical Examination Constitutional: NAD HEENT: PERRLA, sclera anicteric dry MM Neck: no JVD, supple Respiratory: no wheezing, no rales, no rhonchi Cardiovascular: RRR, no significant murmur, no rub Gastrointestinal: soft, no distention, positive bowel sounds Musculoskeletal: no edema, pulses present unable to assess Lymphatic: no nodes Skin: no rash, normal turgor Dx/Plan (1) Encephalopathy acute Code(s): G93.40 - ENCEPHALOPATHY, UNSPECIFIED Status: Acute (2) Metabolic acidosis Code(s): E87.2 - ACIDOSIS Status: Acute (3) Sepsis with acute organ dysfunction Code(s): A41.9 - SEPSIS, UNSPECIFIED ORGANISM; R65.20 - SEVERE SEPSIS WITHOUT SEPTIC SHOCK Status: Acute (4) Starvation ketoacidosis Code(s): E87.2 - ACIDOSIS Status: Acute (5) Anemia of renal disease Code(s): D63.1 - ANEMIA IN CHRONIC KIDNEY DISEASE Status: Chronic (6) Anxiety and depression Code(s): F41.8 - OTHER SPECIFIED ANXIETY DISORDERS Status: Chronic (7) CAD (coronary artery disease) Code(s): I25.10 - ATHSCL HEART DISEASE OF [place] CORONARY ARTERY W/O ANG PCTRS Status: Chronic (8) Chronic anticoagulation Code(s): Z79.01 - FDC (CURRENT) USE OF ANTICOAGULANTS Status: Chronic (9) Depression Code(s): F32.9 - MAJOR DEPRESSIVE DISORDER, SINGLE EPISODE, UNSPECIFIED Status : Chronic (10) Diabetes mellitus type 2 Code(s): E11.9 - TYPE 2 DIABETES MELLITUS WITHOUT COMPLICATIONS Status: Chronic Comment: (11) Dyslipidemia Code(s): E78.5 - HYPERLIPIDEMIA, UNSPECIFIED Status: Chronic (12) ESRD (end stage renal disease) on dialysis Code(s): N18.6 - END STAGE RENAL DISEASE; Z99.2 - DEPENDENCE ON RENAL DIALYSIS Status: Chronic Comment: Dr Rivera (13) GERD (gastroesophageal reflux disease) Code(s): K21.9 - GASTRO-ESOPHAGEAL REFLUX DISEASE WITHOUT ESOPHAGITIS Status: Chronic (14) H/O deep venous thrombosis Code(s): Z86.718 - PERSONAL HISTORY OF OTHER VENOUS THROMBOSIS AND EMBOLISM Status: Chronic (15) H/O sick sinus syndrome Code(s): Z86.79 - PERSONAL HISTORY OF OTHER DISEASES OF THE CIRCULATORY SYSTEM Status: Chronic (16) Hx of below knee amputation Code(s): Z89.519 - ACQUIRED ABSENCE OF UNSPECIFIED LEG BELOW KNEE Status: Chronic Qualifiers: Laterality: right Qualified Code(s): Z89.511 - Acquired absence of right leg below knee (17) Hypertension Code(s): I10 - ESSENTIAL (PRIMARY) HYPERTENSION Status: Chronic (18) PVD (peripheral vascular disease) Code(s): I73.9 - PERIPHERAL VASCULAR DISEASE, UNSPECIFIED Status: Chronic (19) Secondary hyperparathyroidism of renal origin Code(s): N25.81 - SECONDARY HYPERPARATHYROIDISM OF RENAL ORIGIN Status: Chronic (20) Swallowing dysfunction Code(s): R13.10 - DYSPHAGIA, UNSPECIFIED Status: Chronic (21) Thalassemia minor Code(s): D56.3 - THALASSEMIA MINOR Status: Chronic (22) Hypotension Status: Resolved (23) Warfarin-induced coagulopathy Code(s): D68.9 - COAGULATION DEFECT, UNSPECIFIED; T45.515A - ADVERSE EFFECT OF ANTICOAGULANTS, INITIAL ENCOUNTER Status: Resolved - Plan cont current plan of care, plan discussed w/ family, continue antibiotics, socially responsible investment adviser * DC Mclean * consult ID for ESBL UTI * may be colonization, and no need to treat, will ask ID * family to decide about hospice and HD * medication reviewed as below * symptomatic treatment. Review of Systems - Review of Systems Other: unable to review as pt is demented - Medications/Allergies Allergies/Adverse Reactions: Allergies Allergy/AdvReac Type Severity Reaction Status Date / Time [facility] Allergy Severe Anaphylaxis Uncoded 04/26/17 12:23 Medications: Current Medications Acetaminophen (Tylenol) 650 mg AL Q4H PRN PRN Reason: Headache/Fever or Pain Acetaminophen (Tylenol) 650 mg PO Q4H PRN PRN Reason: Headache/Fever or Pain Last Admin: 04/28/17 09:27 Dose: 650 mg Albuterol/Ipratropium (Duoneb) 3 ml NEB [id number] PRN PRN Reason: SOB &/or Wheezing Bisacodyl (Dulcolax) 10 mg AL Q24H PRN PRN Reason: Constipation Dextrose/Water (Dextrose 50%) 25 gm SLOW IVP PRN PRN PRN Reason: Hypoglycemia Epoetin Willem (Procrit) 4,000 units SC Q7D [facility] Last Admin: 04/30/17 12:01 Dose: 4,000 units Famotidine (Pepcid) 20 mg PO BID [facility] Last Admin: 04/30/17 08:47 Dose: 20 mg Fentanyl (Duragesic) 12 mcg TD Q3D [facility] Last Admin: 04/28/17 16:48 Dose: 12 mcg Glucagon (Glucagon) 1 mg IM PRN PRN PRN Reason: Hypoglycemia Guaifenesin (Robitussin Sf) 200 mg PO Q4H PRN PRN Reason: Cough Dextrose/Water (D5w) 1,000 mls @ 0 mls/hr IV .Q0M PRN; As Directed PRN Reason: Hypoglycemia Meropenem 500 mg/ Sodium (Chloride) 100 mls @ 200 mls/hr IVPB 1800 [facility] Last Admin: 04/29/17 18:41 Dose: 100 mls Dextrose/Sodium Chloride (D5 1/2 Ns) 1,000 mls @ 40 mls/hr IV .Q24H [facility] Last Admin: 04/29/17 23:30 Dose: 1,000 mls Insulin Human Regular (Humulin R) 0 units SC .MILD SLIDING SCALE PRN PRN Reason: Mild Correctional Scale Insulin Human Regular (Humulin R) 0 units SC .BEDTIME SLIDING SC PRN PRN Reason: Bedtime Correctional Scale Metoprolol Tartrate (Lopressor) 12.5 mg PO BID [facility] Last Admin: 04/30/17 08:48 Dose: Not Given Mineral Oil/White Petrolatum (Eucerin Cream) 0 gm TOP BIDPRN PRN PRN Reason: Dry Skin Miscellaneous Medication (Pharmacy To Dose) 1 each PO PRN PRN PRN Reason: GOAL INR = 2-3 Ondansetron HCl (Zofran Odt) 4 mg PO Q6H PRN PRN Reason: Nausea/Vomiting Ondansetron HCl (Zofran) 4 mg IVP Q6H PRN PRN Reason: Nausea/Vomiting Saccharomyces Boulardii (Florastor) 250 mg PO DAILY [facility] Last Admin: 04/30/17 08:47 Dose: 250 mg Sertraline HCl (Zoloft) 100 mg PO DAILY [facility] Last Admin: 04/30/17 08:47 Dose: 100 mg Sevelamer Carbonate (Renvela) 800 mg PO TID-WM [facility] Last Admin: 04/30/17 11:49 Dose: 800 mg Sodium Chloride (Flush - Normal Saline) 10 ml IVF Q12HR [facility] Last Admin: 04/30/17 08:48 Dose: Not Given Sodium Chloride (Flush - Normal Saline) 10 ml IVF PRN PRN PRN Reason: Saline Flush Tramadol HCl (Ultram) 50 mg PO Q4H PRN PRN Reason: pain Last Admin: 04/30/17 11:48 Dose: 50 mg Warfarin Sodium (Coumadin) 5 mg PO 1700 [facility] Last Admin: 04/29/17 18:42 Dose: 5 mg
[2017-04-30] MEDS: Meropenem 500 MG in Sodium Chloride 0.9% 100 ML IVPB SCH (17:02)
[2017-04-30] MEDS: Warfarin Sodium 5 MG TAB PO SCH (17:17)
[2017-05-01] MEDS: traMADol HCl 50 MG TAB PO PRN ×2 (00:41→21:19)
[2017-05-01] MEDS: Metoprolol Tartrate 25 MG TAB PO SCH ×3 (00:46→21:18)
[2017-05-01 05:38] LABS: Prothrombin Time 21.5 SEC (12.0-14.7)
[2017-05-01] MEDS: Sevelamer Carbonate 800 MG TAB PO SCH ×3 (08:33→18:12)
[2017-05-01] MEDS: Famotidine 20 MG TAB PO SCH ×2 (08:33→21:20)
[2017-05-01] MEDS: Saccharomyces boulardii 250 MG CAP PO SCH (08:33)
[2017-05-01] MEDS ORDERED: Sterile Water 10 ML ONE (08:39)
[2017-05-01] MEDS ORDERED: Sterile Water 10 ML VIAL FS SCH (08:45)
[2017-05-01] MEDS ORDERED: AMIKACIN SULFATE IVPB SCH ×2 (09:00→12:00)
[2017-05-01] MEDS ORDERED: SODIUM CHLORIDE 0.9% IVPB SCH (12:00)
--- NOTE | 2017-05-01 12:04 | PDOC.PN ---
- Subjective Encounter Start Date: 05/01/17 Encounter Start Time: 08:25 Patient seen and examined. No overnight events - Objective Resuscitation Status: Resuscitation Status DNR:Do Not Resuscitate MAR Reviewed: Yes Vital Signs & Weight: Vital Signs (12 hours) Temp Pulse Resp BP BP Pulse Ox 05/01/17 08:00 98.7 F 97 18 122/55 L 100 05/01/17 04:00 98.6 F 94 20 170/74 H 100 Weight Admit Weight 113 lb 8 oz Weight 119 lb 1.6 oz I&O: 04/30/17 05/01/17 05/02/17 06:59 06:59 06:59 Intake Total 580 1440 Output Total 50 50 Balance 530 1390 Result Diagrams: 04/29/17 04:02 04/29/17 04:02 Additional Labs: Accuchecks 05/01/17 05/01/17 05/01/17 10:41 08:24 04:12 POC Glucose 87 43 L* 80 04/30/17 04/30/17 04/30/17 19:38 15:59 12:20 POC Glucose 97 108 136 H Phys Exam - Physical Examination Constitutional: NAD HEENT: PERRLA, sclera anicteric dry mm Neck: no JVD, supple Respiratory: no wheezing, no rales, no rhonchi Cardiovascular: RRR, no significant murmur, no rub Gastrointestinal: soft, non-tender, no distention dependant edema on left UE, right BKA unable to examine Lymphatic: no nodes Skin: no rash Dx/Plan (1) Encephalopathy acute Code(s): G93.40 - ENCEPHALOPATHY, UNSPECIFIED Status: Acute (2) Metabolic acidosis Code(s): E87.2 - ACIDOSIS Status: Acute (3) Sepsis with acute organ dysfunction Code(s): A41.9 - SEPSIS, UNSPECIFIED ORGANISM; R65.20 - SEVERE SEPSIS WITHOUT SEPTIC SHOCK Status: Acute (4) Starvation ketoacidosis Code(s): E87.2 - ACIDOSIS Status: Acute (5) Anemia of renal disease Code(s): D63.1 - ANEMIA IN CHRONIC KIDNEY DISEASE Status: Chronic (6) Anxiety and depression Code(s): F41.8 - OTHER SPECIFIED ANXIETY DISORDERS Status: Chronic (7) CAD (coronary artery disease) Code(s): I25.10 - ATHSCL HEART DISEASE OF [place] CORONARY ARTERY W/O ANG PCTRS Status: Chronic (8) Chronic anticoagulation Code(s): Z79.01 - ASSISTANT PROFESSOR OF PHYSICS (CURRENT) USE OF ANTICOAGULANTS Status: Chronic (9) Depression Code(s): F32.9 - MAJOR DEPRESSIVE DISORDER, SINGLE EPISODE, UNSPECIFIED Status : Chronic (10) Diabetes mellitus type 2 Code(s): E11.9 - TYPE 2 DIABETES MELLITUS WITHOUT COMPLICATIONS Status: Chronic Comment: (11) Dyslipidemia Code(s): E78.5 - HYPERLIPIDEMIA, UNSPECIFIED Status: Chronic (12) ESRD (end stage renal disease) on dialysis Code(s): N18.6 - END STAGE RENAL DISEASE; Z99.2 - DEPENDENCE ON RENAL DIALYSIS Status: Chronic Comment: Dr Rivera (13) GERD (gastroesophageal reflux disease) Code(s): K21.9 - GASTRO-ESOPHAGEAL REFLUX DISEASE WITHOUT ESOPHAGITIS Status: Chronic (14) H/O deep venous thrombosis Code(s): Z86.718 - PERSONAL HISTORY OF OTHER VENOUS THROMBOSIS AND EMBOLISM Status: Chronic (15) H/O sick sinus syndrome Code(s): Z86.79 - PERSONAL HISTORY OF OTHER DISEASES OF THE CIRCULATORY SYSTEM Status: Chronic (16) Hx of below knee amputation Code(s): Z89.519 - ACQUIRED ABSENCE OF UNSPECIFIED LEG BELOW KNEE Status: Chronic Qualifiers: Laterality: right Qualified Code(s): Z89.511 - Acquired absence of right leg below knee (17) Hypertension Code(s): I10 - ESSENTIAL (PRIMARY) HYPERTENSION Status: Chronic (18) PVD (peripheral vascular disease) Code(s): I73.9 - PERIPHERAL VASCULAR DISEASE, UNSPECIFIED Status: Chronic (19) Secondary hyperparathyroidism of renal origin Code(s): N25.81 - SECONDARY HYPERPARATHYROIDISM OF RENAL ORIGIN Status: Chronic (20) Swallowing dysfunction Code(s): R13.10 - DYSPHAGIA, UNSPECIFIED Status: Chronic (21) Thalassemia minor Code(s): D56.3 - THALASSEMIA MINOR Status: Chronic (22) Hypotension Status: Resolved (23) Warfarin-induced coagulopathy Code(s): D68.9 - COAGULATION DEFECT, UNSPECIFIED; T45.515A - ADVERSE EFFECT OF ANTICOAGULANTS, INITIAL ENCOUNTER Status: Resolved (24) Hypoglycemia Code(s): E16.2 - HYPOGLYCEMIA, UNSPECIFIED Status: Acute - Plan cont current plan of care * HD as per nephrology * palliative care discussing with family about discharge plan * medication reviewed as below * symptomatic treatment * glucagon for hypoglycemia. Review of Systems - Review of Systems Other: unable to review as pt is demented - Medications/Allergies Allergies/Adverse Reactions: Allergies Allergy/AdvReac Type Severity Reaction Status Date / Time [facility] Allergy Severe Anaphylaxis Uncoded 04/26/17 12:23 Medications: Current Medications Acetaminophen (Tylenol) 650 mg RI Q4H PRN PRN Reason: Headache/Fever or Pain Acetaminophen (Tylenol) 650 mg PO Q4H PRN PRN Reason: Headache/Fever or Pain Last Admin: 04/28/17 09:27 Dose: 650 mg Albuterol/Ipratropium (Duoneb) 3 ml NEB [id number] PRN PRN Reason: SOB &/or Wheezing Bisacodyl (Dulcolax) 10 mg RI Q24H PRN PRN Reason: Constipation Dextrose/Water (Dextrose 50%) 25 gm SLOW IVP PRN PRN PRN Reason: Hypoglycemia Epoetin Willem (Procrit) 4,000 units SC Q7D [facility] Last Admin: 04/30/17 12:01 Dose: 4,000 units Famotidine (Pepcid) 20 mg PO BID [facility] Last Admin: 05/01/17 08:33 Dose: 20 mg Fentanyl (Duragesic) 12 mcg TD Q3D [facility] Last Admin: 04/28/17 16:48 Dose: 12 mcg Glucagon (Glucagon) 1 mg IM PRN PRN PRN Reason: Hypoglycemia Last Admin: 05/01/17 08:32 Dose: 1 mg Guaifenesin (Robitussin Sf) 200 mg PO Q4H PRN PRN Reason: Cough Dextrose/Water (D5w) 1,000 mls @ 0 mls/hr IV .Q0M PRN; As Directed PRN Reason: Hypoglycemia Amikacin Sulfate 0.5 gm/ (Sodium Chloride) 102 mls @ 102 mls/hr IVPB MoWeFr [facility] Insulin Human Regular (Humulin R) 0 units SC .MILD SLIDING SCALE PRN PRN Reason: Mild Correctional Scale Insulin Human Regular (Humulin R) 0 units SC .BEDTIME SLIDING SC PRN PRN Reason: Bedtime Correctional Scale Metoprolol Tartrate (Lopressor) 12.5 mg PO BID [facility] Last Admin: 05/01/17 08:33 Dose: 12.5 mg Mineral Oil/White Petrolatum (Eucerin Cream) 0 gm TOP BIDPRN PRN PRN Reason: Dry Skin Miscellaneous Medication (Pharmacy To Dose) 1 each PO PRN PRN PRN Reason: GOAL INR = 2-3 Ondansetron HCl (Zofran Odt) 4 mg PO Q6H PRN PRN Reason: Nausea/Vomiting Ondansetron HCl (Zofran) 4 mg IVP Q6H PRN PRN Reason: Nausea/Vomiting Saccharomyces Boulardii (Florastor) 250 mg PO DAILY [facility] Last Admin: 05/01/17 08:33 Dose: 250 mg Sertraline HCl (Zoloft) 100 mg PO DAILY [facility] Last Admin: 05/01/17 08:33 Dose: 100 mg Sevelamer Carbonate (Renvela) 800 mg PO [facility]ID[facility] Last Admin: 05/01/17 08:33 Dose: 800 mg Sodium Chloride (Flush - Normal Saline) 10 ml IVF Q12HR [facility] Last Admin: 05/01/17 08:33 Dose: Not Given Sodium Chloride (Flush - Normal Saline) 10 ml IVF PRN PRN PRN Reason: Saline Flush Tramadol HCl (Ultram) 50 mg PO Q4H PRN PRN Reason: pain Last Admin: 05/01/17 00:41 Dose: 50 mg Warfarin Sodium (Coumadin) 2.5 mg PO 1700 [facility]
--- NOTE | 2017-05-01 14:01 | CON ---
DATE OF CONSULTATION: 04/30/2017 REASON FOR CONSULTATION: Possible infection. 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 These complications have included pneumonia, gastrointestinal hemorrhage secondary to Coumadin, suspected recurrence of pulm onary embolism with right lower extremity deep vein thrombosis which led them to reinitiation of Cou leonidesin on 04/2016. For the past 2 months she has experienced worsening pain in the appendicular stru ctures, this according to the daughter is related to muscle spasms, although this is not clear. It seems like anytime her upper extremities or lower extremity are moved she grimaces in pain. This naidu s led to her avoidance of being transported to dialysis and therefore led to a decrease in her adher ence to the prescribed dialytic therapy. The last admission was at the end of March and the diagno sis was biceps tendon rupture which was discovered after swelling in the arm was identified. It is not clear the reason for the rupture of the tendon. It must have been related to some sudden motion upon transportation. During this last admission, the possibility of palliative care was discussed and even hospice care and she was discharged back to the care home on a number of medications in cluding Coumadin. The patient was brought back a few days after this latest discharge, this time be cause of development of fever and hypoxemia associated with chills, altered mental status. On arriv al, she was confused. Initial temperature was 105 rectally and BP 72/48 with a pulse of 104, O2 sat 100%. Chest x-ray did not show any infiltrates. The urinalysis was abnormal. A Mclean catheter wa s inserted upon admission to the emergency room, she was given Zosyn and vancomycin. Initial exam showed a contracted older female, confused. Decreased lung base air entry without any wheezing or inspiratory crackles. Heart examination showed a systolic murmur at the apex, tachycard ia. The abdomen without any tenderness appreciated. The extremity examination did not show any are as of skin breakdown. Initial laboratory data demonstrated a white cell count 9000, hemoglobin 10, platelets 202 with 95% neutrophils. INR was 8.2 and 6.9 on 2 separate days. Creatinine 5.58, sodiu m 146. The CO2 was 17. Lactic acid 1.9, AST 117, ALT 50 and BNP was 1600, globulin 4.6. Urinalysi s with greater than 50 WBCs, thus far microbiology has yielded Morganella in urine culture. Two set s of blood cultures are negative. Morganella is a highly resistant phenotype. Once that result was made available, she was transitioned to meropenem. Currently Ms. Dominguez is laying down on her left lateral decubitus. She is obtunded and does not inte ract with examiner. She grimaces any time her appendicular structures are touched or moved. Her da ughter is in room with her. There has been no report of diarrhea, just some soft stool. No bleedin g has been witnessed. No seizure activity and no obvious episode of aspiration. PAST MEDICAL HISTORY: Type 2 diabetes mellitus, end-stage renal disease on hemodialysis through an AV fistula, ischemic cardiomyopathy, prior CVAs with multiinfarct dementia, deep vein thrombosis and pulmonary embolism in the past with recurrence, currently on effective anticoagulation. Rupture of the biceps tendon in left upper extremity progressively worsening functional status with pain syndr ome in all appendicular structures, GERD, sick sinus syndrome with pacemaker, blindness, thalassemia , prior episode of angioedema involving tongue. PAST SURGICAL HISTORY: Cholecystectomy, right BKA, and appendectomy. ALLERGIES: DIALYSIS MEMBRANE. CURRENT MEDICATIONS: Tylenol, DuoNebs, amikacin given after dialysis, Procrit, fentanyl, insulin, o ndansetron, Saccharomyces, warfarin. SOCIAL HISTORY: She is resident of a [facility]. Never a smoker. FAMILY HISTORY: Diabetes type 2. PHYSICAL EXAMINATION: GENERAL: Elderly female who is contracted in bed, left lateral decubitus. VITAL SIGNS: Her vital signs show a T-max of 100.6, most recent elevation was on 04/30/2017 which w as 100 at 4 p.m. and BP 170/74, pulse 94, respirations 20, O2 sat 100. SKIN: Includes an area of pressure injury lateral thigh and gluteal region with no breakdown of sk in noticeable. She has an area of redness of the thumb distal interphalangeal joint, left side. No lymphadenopathy. HEENT: The sclerae are white. Pupils are sluggishly reactive. She has a protuberant tongue, but n ot swollen. No [place] teeth remain. NECK: No jugular venous distention. LUNGS: With symmetric air entry. CARDIOVASCULAR: S1, S2 with diminished heart sounds. No obvious murmurs. ABDOMEN: Soft, flat, not distended, no bladder distention. : Mclean catheter in place. EXTREMITIES: Contracted all 4 extremities. She moves very slightly the distal extremities. She gr imaces every time her extremities are moved. The right BKA stump site appears to be intact. Pulses are not palpable in dorsalis pedis. LABORATORY: The followup labs show a white cell count 7.8, hemoglobin 7.5, MCV 82, platelets 164, 7 8% neutrophils and sodium 144, creatinine 9.58, calcium 9.4. Transaminases and AST 117. Other live r functions normal. CRP 15, cortisol 24. Urinalysis greater than 50 WBCs. Vancomycin trough 9.5, serology with hepatitis B antigen negative. Microbiology as noted above. Reports renal ultrasound which shrunken kidneys bilaterally, but no hydronephrosis noticeable. Ches t x-ray without any obvious focal infiltrates. ASSESSMENT: 1. Diabetes type 2 with end-stage renal disease on hemodialysis through an AV fistula. 2. Coronary artery disease with sick sinus syndrome, pacemaker. 3. Prior cerebrovascular accidents with multi-infarct dementia. 4. Severe functional impairment. Recent biceps rupture with marked pain on mobilization of extremi ties and leading to difficulty in transportation to dialysis and missing dialytic therapy. 5. New onset of fever, hypotension. 6. Abnormal urinalysis. DISCUSSION: Although invasive urinary tract infection is within the differential diagnosis bacterem ia from an alternate source is possible including intra-abdominal. The chest area appears to be les s likely, but initially chest x-ray may not demonstrate pneumonias. A repeat study may be required. Evidently she has very poor functional status. No or little hope for improvement in her multiple chronic illnesses of irreversible nature. Consideration towards palliative care has been given, I t hink that is the most appropriate option at this point in time. We will switch her to amikacin, aft er dialysis, targeting the organism isolated in the urinary tract for now. Duration of therapy shou ld be not more than 10 days approximately, even 7 days should be enough. This is not an interventio n that will result in durable improvement and evidently she will continue to present with complicati ons related to her irreversible illnesses, particularly her neurological status.
[2017-05-01] MEDS: SODIUM CHLORIDE 0.9% IVPB SCH (16:48)
[2017-05-01] MEDS: AMIKACIN SULFATE IVPB SCH (16:48)
[2017-05-01] MEDS ORDERED: Warfarin Sodium 5 MG TAB PO SCH (17:00)
[2017-05-01] MEDS ORDERED: Warfarin Sodium 3 MG TAB PO SCH (17:00)
[2017-05-01] MEDS: Warfarin Sodium 5 MG TAB PO SCH (18:13)
[2017-05-02] MEDS: Dextrose 50% Abboject 50 ML SYRINGE SLOW IVP PRN ×2 (05:04→11:39)
[2017-05-02 05:54] LABS: Prothrombin Time 27.8 SEC (12.0-14.7)
[2017-05-02] MEDS: Sevelamer Carbonate 800 MG TAB PO SCH ×3 (09:24→17:34)
[2017-05-02] MEDS: Metoprolol Tartrate 25 MG TAB PO SCH ×3 (09:28→19:59)
[2017-05-02] MEDS: Saccharomyces boulardii 250 MG CAP PO SCH ×2 (09:29→09:43)
[2017-05-02] MEDS: Famotidine 20 MG TAB PO SCH ×3 (09:32→19:59)
[2017-05-02] MEDS: Acetaminophen 325 MG TAB PO PRN (09:32)
[2017-05-02] MEDS: Acetaminophen 650 MG Suppository PR PRN (10:26)
--- NOTE | 2017-05-02 11:35 | PDOC.PN ---
- Subjective Encounter Start Date: 05/02/17 Encounter Start Time: 08:20 pt has fever, low blood sugar, pt is not able to communicate - Objective Resuscitation Status: Resuscitation Status DNR:Do Not Resuscitate MAR Reviewed: Yes Vital Signs & Weight: Vital Signs (12 hours) Temp Pulse Resp BP Pulse Ox 05/02/17 08:41 100.2 F H 79 20 179/72 H 93 L 05/02/17 03:38 98.7 F 97 20 160/80 H 05/02/17 00:00 98.1 F 70 20 140/61 98 Weight Admit Weight 113 lb 8 oz Weight 116 lb 12.8 oz I&O: 05/01/17 05/02/17 05/03/17 06:59 06:59 06:59 Intake Total 1440 930 Output Total 50 Balance 1390 930 Result Diagrams: 04/29/17 04:02 04/29/17 04:02 Additional Labs: Accuchecks 05/02/17 05/02/17 05/02/17 06:14 05:09 05:04 POC Glucose 126 H 130 H Less than 35 L* 05/02/17 05/02/17 05/01/17 04:43 03:44 19:01 POC Glucose Less than 35 L* Less than 35 L* 118 H 05/01/17 18:06 POC Glucose 100 Phys Exam - Physical Examination Constitutional: NAD HEENT: PERRLA keeps tounge out and eyes closed Neck: no nodes, no JVD, supple Respiratory: no wheezing, no rales, no rhonchi Cardiovascular: RRR, no significant murmur, no rub Gastrointestinal: soft, non-tender, no distention BKA, contracture unable to assess Lymphatic: no nodes Skin: no rash, normal turgor Dx/Plan (1) Encephalopathy acute Code(s): G93.40 - ENCEPHALOPATHY, UNSPECIFIED Status: Acute (2) Metabolic acidosis Code(s): E87.2 - ACIDOSIS Status: Acute (3) Sepsis with acute organ dysfunction Code(s): A41.9 - SEPSIS, UNSPECIFIED ORGANISM; R65.20 - SEVERE SEPSIS WITHOUT SEPTIC SHOCK Status: Acute (4) Starvation ketoacidosis Code(s): E87.2 - ACIDOSIS Status: Acute (5) Anemia of renal disease Code(s): D63.1 - ANEMIA IN CHRONIC KIDNEY DISEASE Status: Chronic (6) Anxiety and depression Code(s): F41.8 - OTHER SPECIFIED ANXIETY DISORDERS Status: Chronic (7) CAD (coronary artery disease) Code(s): I25.10 - ATHSCL HEART DISEASE OF [place] CORONARY ARTERY W/O ANG PCTRS Status: Chronic (8) Chronic anticoagulation Code(s): Z79.01 - ASSISTANT PROFESSOR OF FORESTRY (CURRENT) USE OF ANTICOAGULANTS Status: Chronic (9) Depression Code(s): F32.9 - MAJOR DEPRESSIVE DISORDER, SINGLE EPISODE, UNSPECIFIED Status : Chronic (10) Diabetes mellitus type 2 Code(s): E11.9 - TYPE 2 DIABETES MELLITUS WITHOUT COMPLICATIONS Status: Chronic Comment: (11) Dyslipidemia Code(s): E78.5 - HYPERLIPIDEMIA, UNSPECIFIED Status: Chronic (12) ESRD (end stage renal disease) on dialysis Code(s): N18.6 - END STAGE RENAL DISEASE; Z99.2 - DEPENDENCE ON RENAL DIALYSIS Status: Chronic Comment: Dr Rivera (13) GERD (gastroesophageal reflux disease) Code(s): K21.9 - GASTRO-ESOPHAGEAL REFLUX DISEASE WITHOUT ESOPHAGITIS Status: Chronic (14) H/O deep venous thrombosis Code(s): Z86.718 - PERSONAL HISTORY OF OTHER VENOUS THROMBOSIS AND EMBOLISM Status: Chronic (15) H/O sick sinus syndrome Code(s): Z86.79 - PERSONAL HISTORY OF OTHER DISEASES OF THE CIRCULATORY SYSTEM Status: Chronic (16) Hx of below knee amputation Code(s): Z89.519 - ACQUIRED ABSENCE OF UNSPECIFIED LEG BELOW KNEE Status: Chronic Qualifiers: Laterality: right Qualified Code(s): Z89.511 - Acquired absence of right leg below knee (17) Hypertension Code(s): I10 - ESSENTIAL (PRIMARY) HYPERTENSION Status: Chronic (18) PVD (peripheral vascular disease) Code(s): I73.9 - PERIPHERAL VASCULAR DISEASE, UNSPECIFIED Status: Chronic (19) Secondary hyperparathyroidism of renal origin Code(s): N25.81 - SECONDARY HYPERPARATHYROIDISM OF RENAL ORIGIN Status: Chronic (20) Swallowing dysfunction Code(s): R13.10 - DYSPHAGIA, UNSPECIFIED Status: Chronic (21) Thalassemia minor Code(s): D56.3 - THALASSEMIA MINOR Status: Chronic (22) Hypotension Status: Resolved (23) Warfarin-induced coagulopathy Code(s): D68.9 - COAGULATION DEFECT, UNSPECIFIED; T45.515A - ADVERSE EFFECT OF ANTICOAGULANTS, INITIAL ENCOUNTER Status: Resolved (24) Hypoglycemia Code(s): E16.2 - HYPOGLYCEMIA, UNSPECIFIED Status: Acute - Plan cont current plan of care, plan discussed w/ family, continue antibiotics * as per dr lyman, will continue amikacin after dialysis * daughter relies on pt who can not make decision and now all they decided to continue dialysis * once afebrile for 24 hour and blood sugar is better, will discharge to [place] knowing that she will bounce back soon * her hypoglycemia is due to her very limited po intake * medication reviewed as below * symptomatic treatment. Review of Systems - Review of Systems Other: unable to review as pt is demented - Medications/Allergies Allergies/Adverse Reactions: Allergies Allergy/AdvReac Type Severity Reaction Status Date / Time [facility] Allergy Severe Anaphylaxis Uncoded 04/26/17 12:23 Medications: Current Medications Acetaminophen (Tylenol) 650 mg MD Q4H PRN PRN Reason: Headache/Fever or Pain Last Admin: 05/02/17 10:26 Dose: 650 mg Acetaminophen (Tylenol) 650 mg PO Q4H PRN PRN Reason: Headache/Fever or Pain Last Admin: 04/28/17 09:27 Dose: 650 mg Albuterol/Ipratropium (Duoneb) 3 ml NEB [id number] PRN PRN Reason: SOB &/or Wheezing Bisacodyl (Dulcolax) 10 mg MD Q24H PRN PRN Reason: Constipation Dextrose/Water (Dextrose 50%) 25 gm SLOW IVP PRN PRN PRN Reason: Hypoglycemia Last Admin: 05/02/17 05:04 Dose: 25 gm Epoetin Willem (Procrit) 4,000 units SC Q7D [facility] Last Admin: 04/30/17 12:01 Dose: 4,000 units Famotidine (Pepcid) 20 mg PO BID [facility] Last Admin: 05/02/17 09:43 Dose: Not Given Fentanyl (Duragesic) 12 mcg TD Q3D [facility] Last Admin: 05/01/17 18:13 Dose: 12 mcg Glucagon (Glucagon) 1 mg IM PRN PRN PRN Reason: Hypoglycemia Last Admin: 05/02/17 04:50 Dose: 1 mg Guaifenesin (Robitussin Sf) 200 mg PO Q4H PRN PRN Reason: Cough Dextrose/Water (D5w) 1,000 mls @ 0 mls/hr IV .Q0M PRN; As Directed PRN Reason: Hypoglycemia Amikacin Sulfate 0.5 gm/ (Sodium Chloride) 102 mls @ 102 mls/hr IVPB MoWeFr [facility] Last Admin: 05/01/17 16:48 Dose: 102 mls Insulin Human Regular (Humulin R) 0 units SC .MILD SLIDING SCALE PRN PRN Reason: Mild Correctional Scale Insulin Human Regular (Humulin R) 0 units SC .BEDTIME SLIDING SC PRN PRN Reason: Bedtime Correctional Scale Metoprolol Tartrate (Lopressor) 12.5 mg PO BID [facility] Last Admin: 05/02/17 09:43 Dose: Not Given Mineral Oil/White Petrolatum (Eucerin Cream) 0 gm TOP BIDPRN PRN PRN Reason: Dry Skin Miscellaneous Medication (Pharmacy To Dose) 1 each PO PRN PRN PRN Reason: GOAL INR = 2-3 Ondansetron HCl (Zofran Odt) 4 mg PO Q6H PRN PRN Reason: Nausea/Vomiting Ondansetron HCl (Zofran) 4 mg IVP Q6H PRN PRN Reason: Nausea/Vomiting Saccharomyces Boulardii (Florastor) 250 mg PO DAILY [facility] Last Admin: 05/02/17 09:43 Dose: Not Given Sertraline HCl (Zoloft) 100 mg PO DAILY [facility] Last Admin: 05/02/17 09:43 Dose: Not Given Sevelamer Carbonate (Renvela) 800 mg PO TID-WM [facility] Last Admin: 05/02/17 09:24 Dose: Not Given Sodium Chloride (Flush - Normal Saline) 10 ml IVF Q12HR [facility] Last Admin: 05/02/17 09:30 Dose: Not Given Sodium Chloride (Flush - Normal Saline) 10 ml IVF PRN PRN PRN Reason: Saline Flush Tramadol HCl (Ultram) 50 mg PO Q4H PRN PRN Reason: pain Last Admin: 05/01/17 21:19 Dose: 50 mg Warfarin Sodium (Coumadin) 2.5 mg PO 1700 [facility] Last Admin: 05/01/17 18:13 Dose: 2.5 mg
[2017-05-02] MEDS: Dextrose 10% in Water 1,000 ML IV SCH (12:18)
[2017-05-02] MEDS ORDERED: Acetaminophen 1,000 MG in Premix Bag 1 BAG IVPB SCH ×2 (16:30→23:45)
[2017-05-02] MEDS: Warfarin Sodium 5 MG TAB PO SCH (17:34)
[2017-05-03] MEDS: Famotidine 20 MG TAB PO SCH ×2 (08:25→20:42)
[2017-05-03] MEDS: Metoprolol Tartrate 25 MG TAB PO SCH ×2 (08:25→20:41)
[2017-05-03] MEDS: Sevelamer Carbonate 800 MG TAB PO SCH ×3 (08:25→17:08)
[2017-05-03] MEDS: Saccharomyces boulardii 250 MG CAP PO SCH (08:25)
[2017-05-03] MEDS: Dextrose 10% in Water 1,000 ML IV SCH (08:26)
[2017-05-03 08:30] LABS: #Lymphocytes 1.7 thou/uL (1.20-3.40); #Monocytes 0.6 thou/uL (0.11-0.59); #Neutrophils 7.3 thou/uL (1.40-6.50); %Basophils 0.3 % (0.0-1.0); %Eosinophils 0.1 % (0.0-10.0); %Lymphocytes 18.1 % (21.0-51.0); %Monocytes 6.4 % (0.0-10.0); Hematocrit 25.4 % (36.0-47.0); Red Blood Cell (RBC) Count 3.08 mill/uL (4.20-5.40); White Blood Cell (WBC) Count 9.6 thou/uL (4.8-10.8)
[2017-05-03 08:45] LABS: ALT (SGPT) 43 U/L (8-55); AST (SGOT) 250 U/L (5-34); Alkaline Phosphatase 113 U/L (40-150); Anion Gap 17 mmol/L (10-20); BUN (Urea Nitrogen) 53 mg/dL (9.8-20.1); Bilirubin, Total 0.5 mg/dL (0.2-1.2); Calc. Creatinine Clearance 7 mL/min (70-130); Calcium 8.4 mg/dL (7.8-10.44); Carbon Dioxide 24 mmol/L (23-31); Chloride 103 mmol/L (98-107); Estimated GFR-MDRD 9; Globulin 3.4 g/dL (2.4-3.5); Protein, Total 6.1 g/dL (6.0-8.3)
--- NOTE | 2017-05-03 11:43 | PDOC.PN ---
- Subjective Encounter Start Date: 05/03/17 Encounter Start Time: 08:30 pt is not doing well, has fever, not eating,has hypoglycemia - Objective Resuscitation Status: Resuscitation Status DNR:Do Not Resuscitate MAR Reviewed: Yes Vital Signs & Weight: Vital Signs (12 hours) Temp Pulse Resp BP BP Pulse Ox 05/03/17 11:15 99.4 F 60 18 153/84 H 100 05/03/17 07:52 100.3 F H 76 22 H 111/72 99 05/03/17 03:31 98.5 F 64 18 134/48 L 99 05/03/17 00:23 100.1 F H 61 20 155/65 H 100 Weight Admit Weight 113 lb 8 oz Weight 118 lb I&O: 05/02/17 05/03/17 05/04/17 06:59 06:59 06:59 Intake Total 930 725 Balance 930 725 Result Diagrams: 05/03/17 08:14 05/03/17 08:14 Additional Labs: Accuchecks 05/02/17 05/02/17 05/02/17 22:47 20:01 16:18 POC Glucose 126 H 118 H 147 H 05/02/17 05/02/17 11:43 11:29 POC Glucose 212 H Less than 35 L* Phys Exam - Physical Examination Constitutional: NAD HEENT: PERRLA dry mm Neck: no JVD, supple Respiratory: no wheezing, no rales, no rhonchi Cardiovascular: RRR, no significant murmur Gastrointestinal: soft, no distention Musculoskeletal: no edema dependent edema+ unable to assess Skin: no rash, normal turgor Dx/Plan (1) Encephalopathy acute Code(s): G93.40 - ENCEPHALOPATHY, UNSPECIFIED Status: Acute (2) Metabolic acidosis Code(s): E87.2 - ACIDOSIS Status: Acute (3) Sepsis with acute organ dysfunction Code(s): A41.9 - SEPSIS, UNSPECIFIED ORGANISM; R65.20 - SEVERE SEPSIS WITHOUT SEPTIC SHOCK Status: Acute (4) Starvation ketoacidosis Code(s): E87.2 - ACIDOSIS Status: Acute (5) Anemia of renal disease Code(s): D63.1 - ANEMIA IN CHRONIC KIDNEY DISEASE Status: Chronic (6) Anxiety and depression Code(s): F41.8 - OTHER SPECIFIED ANXIETY DISORDERS Status: Chronic (7) CAD (coronary artery disease) Code(s): I25.10 - ATHSCL HEART DISEASE OF [place] CORONARY ARTERY W/O ANG PCTRS Status: Chronic (8) Chronic anticoagulation Code(s): Z79.01 - DUST OPERATOR (CURRENT) USE OF ANTICOAGULANTS Status: Chronic (9) Depression Code(s): F32.9 - MAJOR DEPRESSIVE DISORDER, SINGLE EPISODE, UNSPECIFIED Status : Chronic (10) Diabetes mellitus type 2 Code(s): E11.9 - TYPE 2 DIABETES MELLITUS WITHOUT COMPLICATIONS Status: Chronic Comment: (11) Dyslipidemia Code(s): E78.5 - HYPERLIPIDEMIA, UNSPECIFIED Status: Chronic (12) ESRD (end stage renal disease) on dialysis Code(s): N18.6 - END STAGE RENAL DISEASE; Z99.2 - DEPENDENCE ON RENAL DIALYSIS Status: Chronic Comment: Dr Rivera (13) GERD (gastroesophageal reflux disease) Code(s): K21.9 - GASTRO-ESOPHAGEAL REFLUX DISEASE WITHOUT ESOPHAGITIS Status: Chronic (14) H/O deep venous thrombosis Code(s): Z86.718 - PERSONAL HISTORY OF OTHER VENOUS THROMBOSIS AND EMBOLISM Status: Chronic (15) H/O sick sinus syndrome Code(s): Z86.79 - PERSONAL HISTORY OF OTHER DISEASES OF THE CIRCULATORY SYSTEM Status: Chronic (16) Hx of below knee amputation Code(s): Z89.519 - ACQUIRED ABSENCE OF UNSPECIFIED LEG BELOW KNEE Status: Chronic Qualifiers: Laterality: right Qualified Code(s): Z89.511 - Acquired absence of right leg below knee (17) Hypertension Code(s): I10 - ESSENTIAL (PRIMARY) HYPERTENSION Status: Chronic (18) PVD (peripheral vascular disease) Code(s): I73.9 - PERIPHERAL VASCULAR DISEASE, UNSPECIFIED Status: Chronic (19) Secondary hyperparathyroidism of renal origin Code(s): N25.81 - SECONDARY HYPERPARATHYROIDISM OF RENAL ORIGIN Status: Chronic (20) Swallowing dysfunction Code(s): R13.10 - DYSPHAGIA, UNSPECIFIED Status: Chronic (21) Thalassemia minor Code(s): D56.3 - THALASSEMIA MINOR Status: Chronic (22) Hypotension Status: Resolved (23) Warfarin-induced coagulopathy Code(s): D68.9 - COAGULATION DEFECT, UNSPECIFIED; T45.515A - ADVERSE EFFECT OF ANTICOAGULANTS, INITIAL ENCOUNTER Status: Resolved (24) Hypoglycemia Code(s): E16.2 - HYPOGLYCEMIA, UNSPECIFIED Status: Acute - Plan cont current plan of care, plan discussed w/ family, continue antibiotics * prognosis is poor and explained to daughter * pt is DNR * will benefit from comfort care * continue amikacin * will get chest xray * blood culture done. Review of Systems - Review of Systems Other: unable to review as pt is not responsive - Medications/Allergies Allergies/Adverse Reactions: Allergies Allergy/AdvReac Type Severity Reaction Status Date / Time [facility] Allergy Severe Anaphylaxis Uncoded 04/26/17 12:23 Medications: Current Medications Acetaminophen (Tylenol) 650 mg [place] Q4H PRN PRN Reason: Headache/Fever or Pain Last Admin: 05/02/17 10:26 Dose: 650 mg Acetaminophen (Tylenol) 650 mg PO Q4H PRN PRN Reason: Headache/Fever or Pain Last Admin: 04/28/17 09:27 Dose: 650 mg Albuterol/Ipratropium (Duoneb) 3 ml NEB [id number] PRN PRN Reason: SOB &/or Wheezing Bisacodyl (Dulcolax) 10 mg FL Q24H PRN PRN Reason: Constipation Dextrose/Water (Dextrose 50%) 25 gm SLOW IVP PRN PRN PRN Reason: Hypoglycemia Last Admin: 05/02/17 11:39 Dose: 25 gm Epoetin Willem (Procrit) 4,000 units SC Q7D [facility] Last Admin: 04/30/17 12:01 Dose: 4,000 units Famotidine (Pepcid) 20 mg PO BID [facility] Last Admin: 05/03/17 08:25 Dose: 20 mg Fentanyl (Duragesic) 12 mcg TD Q3D [facility] Last Admin: 05/01/17 18:13 Dose: 12 mcg Glucagon (Glucagon) 1 mg IM PRN PRN PRN Reason: Hypoglycemia Last Admin: 05/02/17 11:40 Dose: 1 mg Guaifenesin (Robitussin Sf) 200 mg PO Q4H PRN PRN Reason: Cough Dextrose/Water (D5w) 1,000 mls @ 0 mls/hr IV .Q0M PRN; As Directed PRN Reason: Hypoglycemia Amikacin Sulfate 0.5 gm/ (Sodium Chloride) 102 mls @ 102 mls/hr IVPB MoWeFr [facility] Last Admin: 05/01/17 16:48 Dose: 102 mls Dextrose/Water (Dextrose 10% In Water) 1,000 mls @ 50 mls/hr IV .Q20H [facility] Last Admin: 05/03/17 08:26 Dose: 1,000 mls Insulin Human Regular (Humulin R) 0 units SC .MILD SLIDING SCALE PRN PRN Reason: Mild Correctional Scale Insulin Human Regular (Humulin R) 0 units SC .BEDTIME SLIDING SC PRN PRN Reason: Bedtime Correctional Scale Metoprolol Tartrate (Lopressor) 12.5 mg PO BID [facility] Last Admin: 05/03/17 08:25 Dose: 12.5 mg Mineral Oil/White Petrolatum (Eucerin Cream) 0 gm TOP BIDPRN PRN PRN Reason: Dry Skin Miscellaneous Medication (Pharmacy To Dose) 1 each PO PRN PRN PRN Reason: GOAL INR = 2-3 Ondansetron HCl (Zofran Odt) 4 mg PO Q6H PRN PRN Reason: Nausea/Vomiting Ondansetron HCl (Zofran) 4 mg IVP Q6H PRN PRN Reason: Nausea/Vomiting Saccharomyces Boulardii (Florastor) 250 mg PO DAILY [facility] Last Admin: 05/03/17 08:25 Dose: 250 mg Sertraline HCl (Zoloft) 100 mg PO DAILY [facility] Last Admin: 05/03/17 08:24 Dose: 100 mg Sevelamer Carbonate (Renvela) 800 mg PO TID-WM [facility] Last Admin: 05/03/17 08:25 Dose: Not Given Sodium Chloride (Flush - Normal Saline) 10 ml IVF Q12HR [facility] Last Admin: 05/03/17 08:25 Dose: Not Given Sodium Chloride (Flush - Normal Saline) 10 ml IVF PRN PRN PRN Reason: Saline Flush Tramadol HCl (Ultram) 50 mg PO Q4H PRN PRN Reason: pain Last Admin: 05/01/17 21:19 Dose: 50 mg Warfarin Sodium (Coumadin) 2.5 mg PO 1700 [facility] Last Admin: 05/02/17 17:34 Dose: Not Given
--- NOTE | 2017-05-03 12:28 | RAD ---
FRONTAL VIEW CHEST SERIES: COMPARISON: 04/26/17. INDICATION: Sepsis. FINDINGS: Two frontal views submitted. There is an enlarged cardiac silhouette. There is a linear density of the right perihilar region and patchy left perihilar opacification. Left-sided cardiac pacing one[place] ce is present. There are bibasilar pleural and parenchymal densities. IMPRESSION: Congestive heart failure with perihilar edema. Probable bilateral pleural effusions with adjacent a telectasis. Lung bases are limited in visualization, however. POS: [facility]
--- NOTE | 2017-05-03 16:52 | PRG ---
DATE OF SERVICE: 05/03/2017 SUBJECTIVE: Alberto is more awake than previously noted. She is moaning and groaning pretty much uni nterruptedly. The daughter interacts with her, but very limited fashion. Anytime I try to move her or touch any the part of her body, she starts moaning and groaning louder than previously. OBJECTIVE: VITAL SIGNS: She had quite a bit of temperature elevation up until midnight or early this morning a nd now temperature curve is decreased somewhat. HEENT: The ocular movements are intact. LUNGS: With symmetric air entry. It is hard to examine her because she really seems to suffer for many times when try to move her arms, which are crossed over her body. EXTREMITIES: The extremity examination is unchanged from previous findings. LABORATORY DATA: White cell count 9.6, hemoglobin 7.8, platelets 256 with 75% neutrophils, 18% lymp hocytes. Sodium 140, creatinine 5.23, and AST 250. Chest x-ray from this morning with findings con sistent with CHF, perihilar edema, and pleural effusions. ASSESSMENT AND DISCUSSION: Type 2 diabetes with coronary artery disease, sick sinus syndrome and pa cachorroaker, prior cerebrovascular accidents with multiinfarct dementia, severe functional impairment, r ecent biceps rupture, marked pain on mobilization of extremities, fever, hypotension and abnormal ur inalysis. At this point, I again continue amikacin at dialysis and I would strongly consider pallia tive care/hospice care, although certainly everything else being equal she would probably require im aging studies for more precise diagnosis.
[2017-05-03] MEDS: Warfarin Sodium 5 MG TAB PO SCH (17:07)
[2017-05-03] MEDS: traMADol HCl 50 MG TAB PO PRN (18:49)
[2017-05-04] MEDS: Acetaminophen 650 MG Suppository PR PRN (03:44)
[2017-05-04] MEDS: Dextrose 10% in Water 1,000 ML IV SCH ×2 (03:44→23:18)
[2017-05-04 05:55] LABS: Prothrombin Time 42.4 SEC (12.0-14.7)
[2017-05-04] MEDS ORDERED: Phytonadione 10 MG/ML AMP SC SCH (08:00)
[2017-05-04] MEDS: Famotidine 20 MG TAB PO SCH ×2 (09:16→23:03)
[2017-05-04] MEDS: Metoprolol Tartrate 25 MG TAB PO SCH ×2 (09:16→23:03)
[2017-05-04] MEDS: Saccharomyces boulardii 250 MG CAP PO SCH (09:16)
[2017-05-04] MEDS: Sevelamer Carbonate 800 MG TAB PO SCH ×3 (09:17→17:09)
[2017-05-04] MEDS: traMADol HCl 50 MG TAB PO PRN ×2 (09:19→23:04)
--- NOTE | 2017-05-04 11:26 | PDOC.PN ---
- Subjective Encounter Start Date: 05/04/17 Encounter Start Time: 10:10 Patient seen and examined. No overnight events, daughter bedside - Objective Resuscitation Status: Resuscitation Status DNR:Do Not Resuscitate MAR Reviewed: Yes Vital Signs & Weight: Vital Signs (12 hours) Temp Pulse Resp BP Pulse Ox 05/04/17 08:00 98.5 F 60 20 104/34 L 97 05/04/17 04:00 98.4 F 62 18 155/79 H 92 L 05/04/17 00:00 98.9 F 71 18 110/61 98 Weight Admit Weight 113 lb 8 oz Weight 127 lb I&O: 05/03/17 05/04/17 05/05/17 06:59 06:59 06:59 Intake Total 725 650 Balance 725 650 Result Diagrams: 05/03/17 08:14 05/03/17 08:14 Additional Labs: Accuchecks 05/04/17 05/04/17 05/04/17 09:02 03:25 00:39 POC Glucose 117 H 153 H 151 H 05/03/17 05/03/17 05/03/17 20:19 15:40 11:21 POC Glucose 141 H 134 H 128 H Phys Exam - Physical Examination Constitutional: NAD HEENT: PERRLA, sclera anicteric dry MM Neck: no JVD, supple Respiratory: no wheezing, no rales, no rhonchi Cardiovascular: RRR, no significant murmur, no rub Gastrointestinal: soft, non-tender, no distention Musculoskeletal: no edema right bka contracture, unable to do neuro exam Lymphatic: no nodes Skin: no rash Dx/Plan (1) Encephalopathy acute Code(s): G93.40 - ENCEPHALOPATHY, UNSPECIFIED Status: Acute (2) Metabolic acidosis Code(s): E87.2 - ACIDOSIS Status: Acute (3) Sepsis with acute organ dysfunction Code(s): A41.9 - SEPSIS, UNSPECIFIED ORGANISM; R65.20 - SEVERE SEPSIS WITHOUT SEPTIC SHOCK Status: Acute (4) Starvation ketoacidosis Code(s): E87.2 - ACIDOSIS Status: Acute (5) Anemia of renal disease Code(s): D63.1 - ANEMIA IN CHRONIC KIDNEY DISEASE Status: Chronic (6) Anxiety and depression Code(s): F41.8 - OTHER SPECIFIED ANXIETY DISORDERS Status: Chronic (7) CAD (coronary artery disease) Code(s): I25.10 - ATHSCL HEART DISEASE OF [place] CORONARY ARTERY W/O ANG PCTRS Status: Chronic (8) Chronic anticoagulation Code(s): Z79.01 - PHILATELIC CONSULTANT (CURRENT) USE OF ANTICOAGULANTS Status: Chronic (9) Depression Code(s): F32.9 - MAJOR DEPRESSIVE DISORDER, SINGLE EPISODE, UNSPECIFIED Status : Chronic (10) Diabetes mellitus type 2 Code(s): E11.9 - TYPE 2 DIABETES MELLITUS WITHOUT COMPLICATIONS Status: Chronic Comment: (11) Dyslipidemia Code(s): E78.5 - HYPERLIPIDEMIA, UNSPECIFIED Status: Chronic (12) ESRD (end stage renal disease) on dialysis Code(s): N18.6 - END STAGE RENAL DISEASE; Z99.2 - DEPENDENCE ON RENAL DIALYSIS Status: Chronic Comment: Dr Rivera (13) GERD (gastroesophageal reflux disease) Code(s): K21.9 - GASTRO-ESOPHAGEAL REFLUX DISEASE WITHOUT ESOPHAGITIS Status: Chronic (14) H/O deep venous thrombosis Code(s): Z86.718 - PERSONAL HISTORY OF OTHER VENOUS THROMBOSIS AND EMBOLISM Status: Chronic (15) H/O sick sinus syndrome Code(s): Z86.79 - PERSONAL HISTORY OF OTHER DISEASES OF THE CIRCULATORY SYSTEM Status: Chronic (16) Hx of below knee amputation Code(s): Z89.519 - ACQUIRED ABSENCE OF UNSPECIFIED LEG BELOW KNEE Status: Chronic Qualifiers: Laterality: right Qualified Code(s): Z89.511 - Acquired absence of right leg below knee (17) Hypertension Code(s): I10 - ESSENTIAL (PRIMARY) HYPERTENSION Status: Chronic (18) PVD (peripheral vascular disease) Code(s): I73.9 - PERIPHERAL VASCULAR DISEASE, UNSPECIFIED Status: Chronic (19) Secondary hyperparathyroidism of renal origin Code(s): N25.81 - SECONDARY HYPERPARATHYROIDISM OF RENAL ORIGIN Status: Chronic (20) Swallowing dysfunction Code(s): R13.10 - DYSPHAGIA, UNSPECIFIED Status: Chronic (21) Thalassemia minor Code(s): D56.3 - THALASSEMIA MINOR Status: Chronic (22) Hypotension Status: Resolved (23) Warfarin-induced coagulopathy Code(s): D68.9 - COAGULATION DEFECT, UNSPECIFIED; T45.515A - ADVERSE EFFECT OF ANTICOAGULANTS, INITIAL ENCOUNTER Status: Resolved (24) Hypoglycemia Code(s): E16.2 - HYPOGLYCEMIA, UNSPECIFIED Status: Acute - Plan cont current plan of care, plan discussed w/ family, continue antibiotics * continue amikacin * HD as per nephrology * supportive care * medication reviewed as below * symptomatic treatment. * continue D10% Review of Systems - Review of Systems Other: unable to review due to dementia - Medications/Allergies Allergies/Adverse Reactions: Allergies Allergy/AdvReac Type Severity Reaction Status Date / Time [facility] Allergy Severe Anaphylaxis Uncoded 04/26/17 12:23 Medications: Current Medications Acetaminophen (Tylenol) 650 mg [place] Q4H PRN PRN Reason: Headache/Fever or Pain Last Admin: 05/04/17 03:44 Dose: 650 mg Acetaminophen (Tylenol) 650 mg PO Q4H PRN PRN Reason: Headache/Fever or Pain Last Admin: 04/28/17 09:27 Dose: 650 mg Albuterol/Ipratropium (Duoneb) 3 ml NEB [id number] PRN PRN Reason: SOB &/or Wheezing Bisacodyl (Dulcolax) 10 mg OH Q24H PRN PRN Reason: Constipation Dextrose/Water (Dextrose 50%) 25 gm SLOW IVP PRN PRN PRN Reason: Hypoglycemia Last Admin: 05/02/17 11:39 Dose: 25 gm Epoetin Willem (Procrit) 4,000 units SC Q7D [facility] Last Admin: 04/30/17 12:01 Dose: 4,000 units Famotidine (Pepcid) 20 mg PO BID [facility] Last Admin: 05/04/17 09:16 Dose: 20 mg Fentanyl (Duragesic) 12 mcg TD Q3D [facility] Last Admin: 05/01/17 18:13 Dose: 12 mcg Glucagon (Glucagon) 1 mg IM PRN PRN PRN Reason: Hypoglycemia Last Admin: 05/02/17 11:40 Dose: 1 mg Guaifenesin (Robitussin Sf) 200 mg PO Q4H PRN PRN Reason: Cough Dextrose/Water (D5w) 1,000 mls @ 0 mls/hr IV .Q0M PRN; As Directed PRN Reason: Hypoglycemia Amikacin Sulfate 0.5 gm/ (Sodium Chloride) 102 mls @ 102 mls/hr IVPB MoWeFr [facility] Last Admin: 05/01/17 16:48 Dose: 102 mls Dextrose/Water (Dextrose 10% In Water) 1,000 mls @ 50 mls/hr IV .Q20H [facility] Last Admin: 05/04/17 03:44 Dose: 1,000 mls Insulin Human Regular (Humulin R) 0 units SC .MILD SLIDING SCALE PRN PRN Reason: Mild Correctional Scale Insulin Human Regular (Humulin R) 0 units SC .BEDTIME SLIDING SC PRN PRN Reason: Bedtime Correctional Scale Metoprolol Tartrate (Lopressor) 12.5 mg PO BID [facility] Last Admin: 05/04/17 09:16 Dose: 12.5 mg Mineral Oil/White Petrolatum (Eucerin Cream) 0 gm TOP BIDPRN PRN PRN Reason: Dry Skin Miscellaneous Medication (Pharmacy To Dose) 1 each PO PRN PRN PRN Reason: GOAL INR = 2-3 Ondansetron HCl (Zofran Odt) 4 mg PO Q6H PRN PRN Reason: Nausea/Vomiting Ondansetron HCl (Zofran) 4 mg IVP Q6H PRN PRN Reason: Nausea/Vomiting Saccharomyces Boulardii (Florastor) 250 mg PO DAILY [facility] Last Admin: 05/04/17 09:16 Dose: 250 mg Sertraline HCl (Zoloft) 100 mg PO DAILY [facility] Last Admin: 05/04/17 09:17 Dose: 100 mg Sevelamer Carbonate (Renvela) 800 mg PO TID-WM [facility] Last Admin: 05/04/17 09:17 Dose: Not Given Sodium Chloride (Flush - Normal Saline) 10 ml IVF Q12HR [facility] Last Admin: 05/04/17 09:17 Dose: Not Given Sodium Chloride (Flush - Normal Saline) 10 ml IVF PRN PRN PRN Reason: Saline Flush Tramadol HCl (Ultram) 50 mg PO Q4H PRN PRN Reason: pain Last Admin: 05/04/17 09:19 Dose: 50 mg
[2017-05-04] MEDS ORDERED: Warfarin Sodium 1.25 MG HALF.TAB PO SCH (17:00)
[2017-05-04 19:17] LABS: #Lymphocytes 1.3 thou/uL (1.20-3.40); #Monocytes 0.8 thou/uL (0.11-0.59); #Neutrophils 8.7 thou/uL (1.40-6.50); %Basophils 0.1 % (0.0-1.0); %Eosinophils 0.2 % (0.0-10.0); %Lymphocytes 11.9 % (21.0-51.0); %Monocytes 7.5 % (0.0-10.0); Hematocrit 25.3 % (36.0-47.0); Mean Platelet Volume 9.5 fL (7.4-10.4); White Blood Cell (WBC) Count 10.9 thou/uL (4.8-10.8)
[2017-05-04 19:37] LABS: Anion Gap 19 mmol/L (10-20); BUN (Urea Nitrogen) 66 mg/dL (9.8-20.1); BUN/Creatinine Ratio 10.34; Calc. Creatinine Clearance 6 mL/min (70-130); Calcium 8.1 mg/dL (7.8-10.44); Carbon Dioxide 21 mmol/L (23-31); Chloride 100 mmol/L (98-107); Estimated GFR-MDRD 8; Phosphorus 5.4 mg/dL (2.3-4.7)
[2017-05-04] MEDS: SODIUM CHLORIDE 0.9% IVPB SCH (23:03)
[2017-05-04] MEDS: AMIKACIN SULFATE IVPB SCH (23:03)
[2017-05-05] MEDS: Sevelamer Carbonate 800 MG TAB PO SCH ×3 (08:30→17:37)
[2017-05-05] MEDS: Famotidine 20 MG TAB PO SCH ×2 (08:30→20:22)
[2017-05-05] MEDS: Saccharomyces boulardii 250 MG CAP PO SCH (08:31)
[2017-05-05] MEDS: Metoprolol Tartrate 25 MG TAB PO SCH ×2 (08:31→20:22)
--- NOTE | 2017-05-05 11:58 | PDOC.PN ---
- Subjective Encounter Start Date: 05/05/17 Encounter Start Time: 09:40 Patient seen and examined. no change in overall condition, No overnight events - Objective Resuscitation Status: Resuscitation Status DNR:Do Not Resuscitate MAR Reviewed: Yes Vital Signs & Weight: Vital Signs (12 hours) Temp Pulse Resp BP Pulse Ox 05/05/17 08:15 24 H 05/05/17 08:00 99.0 F 60 24 H 127/66 100 05/05/17 04:00 98.3 F 62 18 122/54 L 100 05/05/17 02:03 100 Weight Admit Weight 113 lb 8 oz Weight 127 lb I&O: 05/04/17 05/05/17 05/06/17 06:59 06:59 06:59 Intake Total 650 460 Balance 650 460 Result Diagrams: 05/04/17 18:35 05/04/17 18:35 Additional Labs: Accuchecks 05/05/17 05/05/17 05/05/17 11:42 08:28 05:25 POC Glucose 136 H 173 H 120 H 05/04/17 05/04/17 05/03/17 22:55 15:39 03:39 POC Glucose 134 H 178 H 112 H 05/02/17 04:35 POC Glucose Less than 35 L* Phys Exam - Physical Examination Constitutional: NAD HEENT: PERRLA, moist MMs, sclera anicteric Neck: no JVD, supple Respiratory: no wheezing, no rales, no rhonchi Cardiovascular: RRR, no significant murmur, no rub Gastrointestinal: soft, non-tender, no distention Musculoskeletal: no edema, pulses present right BKA contacture+ Lymphatic: no nodes Skin: no rash Dx/Plan (1) Encephalopathy acute Code(s): G93.40 - ENCEPHALOPATHY, UNSPECIFIED Status: Acute (2) Metabolic acidosis Code(s): E87.2 - ACIDOSIS Status: Acute (3) Sepsis with acute organ dysfunction Code(s): A41.9 - SEPSIS, UNSPECIFIED ORGANISM; R65.20 - SEVERE SEPSIS WITHOUT SEPTIC SHOCK Status: Acute (4) Starvation ketoacidosis Code(s): E87.2 - ACIDOSIS Status: Acute (5) Anemia of renal disease Code(s): D63.1 - ANEMIA IN CHRONIC KIDNEY DISEASE Status: Chronic (6) Anxiety and depression Code(s): F41.8 - OTHER SPECIFIED ANXIETY DISORDERS Status: Chronic (7) CAD (coronary artery disease) Code(s): I25.10 - ATHSCL HEART DISEASE OF [place] CORONARY ARTERY W/O ANG PCTRS Status: Chronic (8) Chronic anticoagulation Code(s): Z79.01 - [facility] (CURRENT) USE OF ANTICOAGULANTS Status: Chronic (9) Depression Code(s): F32.9 - MAJOR DEPRESSIVE DISORDER, SINGLE EPISODE, UNSPECIFIED Status : Chronic (10) Diabetes mellitus type 2 Code(s): E11.9 - TYPE 2 DIABETES MELLITUS WITHOUT COMPLICATIONS Status: Chronic Comment: (11) Dyslipidemia Code(s): E78.5 - HYPERLIPIDEMIA, UNSPECIFIED Status: Chronic (12) ESRD (end stage renal disease) on dialysis Code(s): N18.6 - END STAGE RENAL DISEASE; Z99.2 - DEPENDENCE ON RENAL DIALYSIS Status: Chronic Comment: Dr Rivera (13) GERD (gastroesophageal reflux disease) Code(s): K21.9 - GASTRO-ESOPHAGEAL REFLUX DISEASE WITHOUT ESOPHAGITIS Status: Chronic (14) H/O deep venous thrombosis Code(s): Z86.718 - PERSONAL HISTORY OF OTHER VENOUS THROMBOSIS AND EMBOLISM Status: Chronic (15) H/O sick sinus syndrome Code(s): Z86.79 - PERSONAL HISTORY OF OTHER DISEASES OF THE CIRCULATORY SYSTEM Status: Chronic (16) Hx of below knee amputation Code(s): Z89.519 - ACQUIRED ABSENCE OF UNSPECIFIED LEG BELOW KNEE Status: Chronic Qualifiers: Laterality: right Qualified Code(s): Z89.511 - Acquired absence of right leg below knee (17) Hypertension Code(s): I10 - ESSENTIAL (PRIMARY) HYPERTENSION Status: Chronic (18) PVD (peripheral vascular disease) Code(s): I73.9 - PERIPHERAL VASCULAR DISEASE, UNSPECIFIED Status: Chronic (19) Secondary hyperparathyroidism of renal origin Code(s): N25.81 - SECONDARY HYPERPARATHYROIDISM OF RENAL ORIGIN Status: Chronic (20) Swallowing dysfunction Code(s): R13.10 - DYSPHAGIA, UNSPECIFIED Status: Chronic (21) Thalassemia minor Code(s): D56.3 - THALASSEMIA MINOR Status: Chronic (22) Hypotension Status: Resolved (23) Warfarin-induced coagulopathy Code(s): D68.9 - COAGULATION DEFECT, UNSPECIFIED; T45.515A - ADVERSE EFFECT OF ANTICOAGULANTS, INITIAL ENCOUNTER Status: Resolved (24) Hypoglycemia Code(s): E16.2 - HYPOGLYCEMIA, UNSPECIFIED Status: Acute - Plan cont current plan of care, plan discussed w/ family, continue antibiotics * today will dc D10 drip and see if she does not get hypoglycemia * if no hypoglycemia today and no fever, then we can consider discharge * continue HD and amikacin * medication reviewed as below * symptomatic treatment. Review of Systems - Review of Systems Other: unable to review due to dementia - Medications/Allergies Allergies/Adverse Reactions: Allergies Allergy/AdvReac Type Severity Reaction Status Date / Time [facility] Allergy Severe Anaphylaxis Uncoded 04/26/17 12:23 Medications: Current Medications Acetaminophen (Tylenol) 650 mg [place] Q4H PRN PRN Reason: Headache/Fever or Pain Last Admin: 05/04/17 03:44 Dose: 650 mg Acetaminophen (Tylenol) 650 mg PO Q4H PRN PRN Reason: Headache/Fever or Pain Last Admin: 04/28/17 09:27 Dose: 650 mg Albuterol/Ipratropium (Duoneb) 3 ml NEB [id number] PRN PRN Reason: SOB &/or Wheezing Bisacodyl (Dulcolax) 10 mg [place] Q24H PRN PRN Reason: Constipation Dextrose/Water (Dextrose 50%) 25 gm SLOW IVP PRN PRN PRN Reason: Hypoglycemia Last Admin: 05/02/17 11:39 Dose: 25 gm Epoetin Willem (Procrit) 4,000 units SC Q7D [facility] Last Admin: 04/30/17 12:01 Dose: 4,000 units Famotidine (Pepcid) 20 mg PO BID [facility] Last Admin: 05/05/17 08:30 Dose: 20 mg Fentanyl (Duragesic) 12 mcg TD Q3D [facility] Last Admin: 05/04/17 17:04 Dose: 12 mcg Glucagon (Glucagon) 1 mg IM PRN PRN PRN Reason: Hypoglycemia Last Admin: 05/02/17 11:40 Dose: 1 mg Guaifenesin (Robitussin Sf) 200 mg PO Q4H PRN PRN Reason: Cough Dextrose/Water (D5w) 1,000 mls @ 0 mls/hr IV .Q0M PRN; As Directed PRN Reason: Hypoglycemia Amikacin Sulfate 0.5 gm/ (Sodium Chloride) 102 mls @ 102 mls/hr IVPB MoWeFr [facility] Last Admin: 05/04/17 23:03 Dose: 102 mls Insulin Human Regular (Humulin R) 0 units SC .MILD SLIDING SCALE PRN PRN Reason: Mild Correctional Scale Insulin Human Regular (Humulin R) 0 units SC .BEDTIME SLIDING SC PRN PRN Reason: Bedtime Correctional Scale Metoprolol Tartrate (Lopressor) 12.5 mg PO BID [facility] Last Admin: 05/05/17 08:31 Dose: 12.5 mg Mineral Oil/White Petrolatum (Eucerin Cream) 0 gm TOP BIDPRN PRN PRN Reason: Dry Skin Miscellaneous Medication (Pharmacy To Dose) 1 each PO PRN PRN PRN Reason: GOAL INR = 2-3 Ondansetron HCl (Zofran Odt) 4 mg PO Q6H PRN PRN Reason: Nausea/Vomiting Ondansetron HCl (Zofran) 4 mg IVP Q6H PRN PRN Reason: Nausea/Vomiting Saccharomyces Boulardii (Florastor) 250 mg PO DAILY [facility] Last Admin: 05/05/17 08:31 Dose: 250 mg Sertraline HCl (Zoloft) 100 mg PO DAILY [facility] Last Admin: 05/05/17 08:31 Dose: 100 mg Sevelamer Carbonate (Renvela) 800 mg PO TID-WM [facility] Last Admin: 05/05/17 08:30 Dose: 800 mg Sodium Chloride (Flush - Normal Saline) 10 ml IVF Q12HR [facility] Last Admin: 05/05/17 08:35 Dose: Not Given Sodium Chloride (Flush - Normal Saline) 10 ml IVF PRN PRN PRN Reason: Saline Flush Tramadol HCl (Ultram) 50 mg PO Q4H PRN PRN Reason: pain Last Admin: 05/04/17 23:04 Dose: 50 mg
[2017-05-05] MEDS: traMADol HCl 50 MG TAB PO PRN (21:25)
[2017-05-06] MEDS: Saccharomyces boulardii 250 MG CAP PO SCH (08:51)
[2017-05-06] MEDS: Famotidine 20 MG TAB PO SCH ×2 (08:51→20:46)
[2017-05-06] MEDS: traMADol HCl 50 MG TAB PO PRN ×2 (08:51→22:36)
[2017-05-06] MEDS: Sevelamer Carbonate 800 MG TAB PO SCH ×3 (08:51→16:49)
[2017-05-06] MEDS: Metoprolol Tartrate 25 MG TAB PO SCH ×2 (08:52→20:46)
--- NOTE | 2017-05-06 11:50 | DIS ---
PRIMARY CARE PHYSICIAN: Dr. Cl Rodriguez DATE OF ADMISSION: 04/26/2017 DATE OF DISCHARGE: 05/06/2017 DISCHARGE DISPOSITION: longterm. PRIMARY DISCHARGE DIAGNOSES: 1. Acute encephalopathy, metabolic. 2. Recurrent hypoglycemia due to poor p.o. intake. 3. Metabolic acidosis. 4. Sepsis with acute organ dysfunction. 5. Starvation ketoacidosis. 6. Supratherapeutic INR due to warfarin induced coagulopathy. 7. Hypotension, resolved. SECONDARY DISCHARGE DIAGNOSES: Thalassemia minor with swallowing dysfunction, secondary hyperparathyroidism of renal origin, peripheral vascular disease, right below knee amputation, hypertension, sick sinus syndrome with pacemaker, history of DVT, gastroesophageal reflux disease, end-stage renal disease on hemodialysis, dyslipidemia, diabetes type 2, depression, coronary artery disease , anxiety and depression, anemia of renal disease. PRIMARY PROCEDURE/OPERATION: Maintenance hemodialysis. RADIOLOGICAL INVESTIGATION: Chest x-ray on admission showed no acute process, pacemaker in place. Renal ultrasound showed no hydronephrosis, atrophic kidney. SIGNIFICANT LABS: WBC 10.9, hemoglobin 7.9, platelets 297. INR 4.2, sodium 136 , potassium 4.4, BUN 66, creatinine 6.38, calcium 8.1, phosphorus 5.4, albumin 2.5. Urinalysis suggestive of UTI. Urine culture grew multidrug resistant Morganella morganii. Blood culture negative. DISCHARGE MEDICATIONS: Patient will get amikacin with hemodialysis Thursday, Thursday, Thursday after dialysis for another 5 times. Continue following medications: Tylenol 650 mg p.o. q.4 h. p.r.n., amlodipine 5 mg p.o. daily, Lipitor 20 mg p.o. at bedtime, Colace 100 mg p.o. b.i.d., ferrous sulfate 325 mg p.o. daily, Nephro-Leeann 1 tablet p.o. daily, DuoNeb q.6 p.r.n., metoprolol 25 mg twice daily, Nephro liquid daily, omeprazole 20 mg daily, Zofran 4 mg q.6 h. p.r.n., MiraLax 17 grams p.o. daily p.r.n., Senokot-S 8.6 mg p.r.n., Zoloft 100 mg p.o. daily, Renvela 800 mg p.o. t.i.d., Mucinex 600 mg twice daily, tramadol 50 mg t.i.d. CONTRAINDICATIONS: None. CODE STATUS: DNR. INPATIENT CONSULTANTS: Dr. Francois Rivera was following for dialysis. Dr. Fisher was following while in the hospital. Dr. Gutierrez was consulted for ESBL UTI. HOSPITAL COURSE: An 82-year-old female who lives at [facility]. Patient is bed bound status. She is getting dialysis Thursday, Thursday, and Thursday. This patient was brought to ER for temperature of 105, hypotension. She was septic on admission, she was requiring oxygen for hypoxic respiratory failure. Her x-ray was unremarkable. At this time, we suspected urinary tract infection. Her urine culture grew ESBL organism. We consulted Dr. Gutierrez. Dr. Gutierrez recommended amikacin therapy after dialysis. Initially, this patient was admitted in CCU and that is why Dr. Fisher was also following while in the IMCU. On admission, she was septic. She was having hypotension. The hypotension responded to IV fluid. She had supratherapeutic INR that was improved with not giving warfarin. She also had metabolic acidosis, starvation ketosis. This patient was getting recurrently hypoglycemia because she has very poor p.o. intake. She is dependent on others and she was not able to get more p.o. intake and that is why she was getting recurrent hypoglycemia and that was treated with D10 while in hospital. She was also afebrile while in hospital, but for the last 3-4 days the patient does not have any high grade fever. Her fever responded to amikacin therapy. While in hospital, we discussed goal of care with the family member and the patient was made DNR. This patient family member does not agree with hospice yet and that is why they wanted to go back to residential. This patient's condition is so fragile that she always mumbles and moans in distress. Her condition is not normal, we cannot make even more better than this. The patient's family members still not considering hospice option and this patient is going to go to residential with dialysis and she will get her medications after dialysis as medication will be continued as above. At this point, this patient is medically not a candidate for any kind of chronic anticoagulation therapy because she is getting recurrently supratherapeutic INR and for her safety, we are discontinuing warfarin therapy permanently from her regimen. This patient's quality of life is extremely poor. At this point, this patient should go to inpatient hospice facility, but the family member is not accepting that option and that is why we are discharging her to the residential. This patient is very high risk for recurrent admission. VITAL SIGNS: Currently, temperature 98.7, pulse 86, respiratory rate 20, saturation 100% on 1 liter, blood pressure 159/61, weight 122 pounds. GENERAL: The patient is keeping her eyes closed, keeps her mouth open with tongue out. She only moans and groans, does not talk, does not speak. She is contracted and she does have a right [id number] amputation. LUNGS: Clear. ABDOMEN: Soft, benign. Whenever we touch her on her body she just hurts everywhere. This is her baseline status. This patient is going to be discharged after dialysis later on today. PAYALD
--- NOTE | 2017-05-06 15:10 | PDOC.PN ---
- Subjective Encounter Start Date: 05/06/17 Encounter Start Time: 15:08 Patient seen and examined. No new complaints. No overnight events - Objective Resuscitation Status: Resuscitation Status DNR:Do Not Resuscitate MAR Reviewed: Yes Vital Signs & Weight: Vital Signs (12 hours) Temp Pulse Resp BP Pulse Ox 05/06/17 08:00 99.3 F 78 24 H 05/06/17 07:59 99.3 F 78 24 H 159/61 H 100 05/06/17 05:41 167/59 H 05/06/17 05:28 98.7 F 86 20 100 Weight Admit Weight 113 lb 8 oz Weight 122 lb 9 oz I&O: 05/05/17 05/06/17 05/07/17 06:59 06:59 06:59 Intake Total 460 200 Balance 460 200 Result Diagrams: 05/04/17 18:35 05/04/17 18:35 Additional Labs: Accuchecks 05/06/17 05/06/17 05/06/17 11:02 08:45 05:37 POC Glucose 98 104 126 H 05/06/17 05/06/17 05/05/17 04:00 00:26 20:43 POC Glucose 78 105 114 H 05/05/17 16:12 POC Glucose 137 H Phys Exam - Physical Examination Constitutional: NAD HEENT: PERRLA, sclera anicteric Neck: no JVD, supple Respiratory: no wheezing, no rales, no rhonchi Cardiovascular: RRR, no significant murmur, no rub Gastrointestinal: soft, non-tender, no distention Musculoskeletal: no edema, pulses present Lymphatic: no nodes Skin: no rash, normal turgor Dx/Plan (1) Encephalopathy acute Code(s): G93.40 - ENCEPHALOPATHY, UNSPECIFIED Status: Acute (2) Metabolic acidosis Code(s): E87.2 - ACIDOSIS Status: Acute (3) Sepsis with acute organ dysfunction Code(s): A41.9 - SEPSIS, UNSPECIFIED ORGANISM; R65.20 - SEVERE SEPSIS WITHOUT SEPTIC SHOCK Status: Acute (4) Starvation ketoacidosis Code(s): E87.2 - ACIDOSIS Status: Acute (5) Anemia of renal disease Code(s): D63.1 - ANEMIA IN CHRONIC KIDNEY DISEASE Status: Chronic (6) Anxiety and depression Code(s): F41.8 - OTHER SPECIFIED ANXIETY DISORDERS Status: Chronic (7) CAD (coronary artery disease) Code(s): I25.10 - ATHSCL HEART DISEASE OF [place] CORONARY ARTERY W/O ANG PCTRS Status: Chronic (8) Chronic anticoagulation Code(s): Z79.01 - OB/GYN (CURRENT) USE OF ANTICOAGULANTS Status: Chronic (9) Depression Code(s): F32.9 - MAJOR DEPRESSIVE DISORDER, SINGLE EPISODE, UNSPECIFIED Status : Chronic (10) Diabetes mellitus type 2 Code(s): E11.9 - TYPE 2 DIABETES MELLITUS WITHOUT COMPLICATIONS Status: Chronic Comment: (11) Dyslipidemia Code(s): E78.5 - HYPERLIPIDEMIA, UNSPECIFIED Status: Chronic (12) ESRD (end stage renal disease) on dialysis Code(s): N18.6 - END STAGE RENAL DISEASE; Z99.2 - DEPENDENCE ON RENAL DIALYSIS Status: Chronic Comment: Dr Rivera (13) GERD (gastroesophageal reflux disease) Code(s): K21.9 - GASTRO-ESOPHAGEAL REFLUX DISEASE WITHOUT ESOPHAGITIS Status: Chronic (14) H/O deep venous thrombosis Code(s): Z86.718 - PERSONAL HISTORY OF OTHER VENOUS THROMBOSIS AND EMBOLISM Status: Chronic (15) H/O sick sinus syndrome Code(s): Z86.79 - PERSONAL HISTORY OF OTHER DISEASES OF THE CIRCULATORY SYSTEM Status: Chronic (16) Hx of below knee amputation Code(s): Z89.519 - ACQUIRED ABSENCE OF UNSPECIFIED LEG BELOW KNEE Status: Chronic Qualifiers: Laterality: right Qualified Code(s): Z89.511 - Acquired absence of right leg below knee (17) Hypertension Code(s): I10 - ESSENTIAL (PRIMARY) HYPERTENSION Status: Chronic (18) PVD (peripheral vascular disease) Code(s): I73.9 - PERIPHERAL VASCULAR DISEASE, UNSPECIFIED Status: Chronic (19) Secondary hyperparathyroidism of renal origin Code(s): N25.81 - SECONDARY HYPERPARATHYROIDISM OF RENAL ORIGIN Status: Acute (20) Swallowing dysfunction Code(s): R13.10 - DYSPHAGIA, UNSPECIFIED Status: Chronic (21) Thalassemia minor Code(s): D56.3 - THALASSEMIA MINOR Status: Chronic (22) Hypotension Status: Resolved (23) Warfarin-induced coagulopathy Code(s): D68.9 - COAGULATION DEFECT, UNSPECIFIED; T45.515A - ADVERSE EFFECT OF ANTICOAGULANTS, INITIAL ENCOUNTER Status: Resolved (24) Hypoglycemia Code(s): E16.2 - HYPOGLYCEMIA, UNSPECIFIED Status: Acute - Plan cont current plan of care, plan discussed w/ family, continue antibiotics, social and human services assistant * POSSIBLE DISCHARGE TODAY IF IV ANTIBIOTICS WITH DIALYSIS ARRANGED * MEDICATION REVIEWED BELOW * DISCUSSED WITH DAUGHTER AND TECHNICAL OPERATIONS MANAGER. Review of Systems - Review of Systems Other: UNABLE TO REVIEW DUE TO DEMENTIA - Medications/Allergies Allergies/Adverse Reactions: Allergies Allergy/AdvReac Type Severity Reaction Status Date / Time [facility] Allergy Severe Anaphylaxis Uncoded 04/26/17 12:23 Medications: Current Medications Acetaminophen (Tylenol) 650 mg MS Q4H PRN PRN Reason: Headache/Fever or Pain Last Admin: 05/04/17 03:44 Dose: 650 mg Acetaminophen (Tylenol) 650 mg PO Q4H PRN PRN Reason: Headache/Fever or Pain Last Admin: 04/28/17 09:27 Dose: 650 mg Albuterol/Ipratropium (Duoneb) 3 ml NEB [id number] PRN PRN Reason: SOB &/or Wheezing Bisacodyl (Dulcolax) 10 mg MS Q24H PRN PRN Reason: Constipation Dextrose/Water (Dextrose 50%) 25 gm SLOW IVP PRN PRN PRN Reason: Hypoglycemia Last Admin: 05/02/17 11:39 Dose: 25 gm Epoetin Willem (Procrit) 4,000 units SC Q7D [facility] Last Admin: 04/30/17 12:01 Dose: 4,000 units Famotidine (Pepcid) 20 mg PO BID [facility] Last Admin: 05/06/17 08:51 Dose: 20 mg Fentanyl (Duragesic) 12 mcg TD Q3D [facility] Last Admin: 05/04/17 17:04 Dose: 12 mcg Glucagon (Glucagon) 1 mg IM PRN PRN PRN Reason: Hypoglycemia Last Admin: 05/02/17 11:40 Dose: 1 mg Guaifenesin (Robitussin Sf) 200 mg PO Q4H PRN PRN Reason: Cough Dextrose/Water (D5w) 1,000 mls @ 0 mls/hr IV .Q0M PRN; As Directed PRN Reason: Hypoglycemia Amikacin Sulfate 0.5 gm/ (Sodium Chloride) 102 mls @ 102 mls/hr IVPB MoWeFr [facility] Last Admin: 05/04/17 23:03 Dose: 102 mls Insulin Human Regular (Humulin R) 0 units SC .MILD SLIDING SCALE PRN PRN Reason: Mild Correctional Scale Insulin Human Regular (Humulin R) 0 units SC .BEDTIME SLIDING SC PRN PRN Reason: Bedtime Correctional Scale Metoprolol Tartrate (Lopressor) 12.5 mg PO BID [facility] Last Admin: 05/06/17 08:52 Dose: Not Given Mineral Oil/White Petrolatum (Eucerin Cream) 0 gm TOP BIDPRN PRN PRN Reason: Dry Skin Miscellaneous Medication (Pharmacy To Dose) 1 each PO PRN PRN PRN Reason: GOAL INR = 2-3 Ondansetron HCl (Zofran Odt) 4 mg PO Q6H PRN PRN Reason: Nausea/Vomiting Ondansetron HCl (Zofran) 4 mg IVP Q6H PRN PRN Reason: Nausea/Vomiting Saccharomyces Boulardii (Florastor) 250 mg PO DAILY [facility] Last Admin: 05/06/17 08:51 Dose: 250 mg Sertraline HCl (Zoloft) 100 mg PO DAILY [facility] Last Admin: 05/06/17 08:51 Dose: 100 mg Sevelamer Carbonate (Renvela) 800 mg PO TID-WM [facility] Last Admin: 05/06/17 12:28 Dose: 800 mg Sodium Chloride (Flush - Normal Saline) 10 ml IVF Q12HR [facility] Last Admin: 05/06/17 08:52 Dose: 10 ml Sodium Chloride (Flush - Normal Saline) 10 ml IVF PRN PRN PRN Reason: Saline Flush Tramadol HCl (Ultram) 50 mg PO Q4H PRN PRN Reason: pain Last Admin: 05/06/17 08:51 Dose: 50 mg
[2017-05-06 17:11] LABS: Prothrombin Time 16.8 SEC (12.0-14.7)
[2017-05-06] MEDS: AMIKACIN SULFATE IVPB SCH (17:52)
[2017-05-06] MEDS: SODIUM CHLORIDE 0.9% IVPB SCH (17:52)
[2017-05-06] MEDS: Dextrose 50% Abboject 50 ML SYRINGE SLOW IVP PRN (18:39)
[2017-05-07 07:07] LABS: Prothrombin Time 18.2 SEC (12.0-14.7)
[2017-05-07] MEDS: Metoprolol Tartrate 25 MG TAB PO SCH ×2 (08:34→19:47)
[2017-05-07] MEDS: Famotidine 20 MG TAB PO SCH ×2 (08:34→19:47)
[2017-05-07] MEDS: Sevelamer Carbonate 800 MG TAB PO SCH ×3 (08:34→17:08)
[2017-05-07] MEDS: Saccharomyces boulardii 250 MG CAP PO SCH (08:35)
--- NOTE | 2017-05-07 10:54 | PDOC.PN ---
- Subjective Encounter Start Date: 05/07/17 Encounter Start Time: 09:10 Patient seen and examined. No new problem, daughter bedside. No overnight events - Objective Resuscitation Status: Resuscitation Status DNR:Do Not Resuscitate MAR Reviewed: Yes Vital Signs & Weight: Vital Signs (12 hours) Temp Pulse Resp BP Pulse Ox 05/07/17 08:00 99.5 F 63 15 100 05/07/17 07:29 99.5 F 63 15 166/55 H 100 Weight Admit Weight 113 lb 8 oz Weight 122 lb 0.625 oz I&O: 05/06/17 05/07/17 05/08/17 06:59 06:59 06:59 Intake Total 200 Balance 200 Result Diagrams: 05/04/17 18:35 05/04/17 18:35 Additional Labs: Accuchecks 05/07/17 05/07/17 05/07/17 07:43 05:31 04:37 POC Glucose 85 100 94 05/07/17 05/06/17 05/06/17 00:12 20:27 18:03 POC Glucose 132 H 139 H 76 05/06/17 05/06/17 15:42 11:02 POC Glucose 99 98 Phys Exam - Physical Examination Constitutional: NAD HEENT: PERRLA, moist MMs, sclera anicteric Neck: no JVD, supple Respiratory: no wheezing, no rales, no rhonchi Cardiovascular: RRR, no significant murmur, no rub Gastrointestinal: soft, non-tender, no distention, positive bowel sounds right bka contracture Lymphatic: no nodes Skin: no rash, normal turgor Dx/Plan (1) Encephalopathy acute Code(s): G93.40 - ENCEPHALOPATHY, UNSPECIFIED Status: Acute (2) Metabolic acidosis Code(s): E87.2 - ACIDOSIS Status: Acute (3) Sepsis with acute organ dysfunction Code(s): A41.9 - SEPSIS, UNSPECIFIED ORGANISM; R65.20 - SEVERE SEPSIS WITHOUT SEPTIC SHOCK Status: Acute (4) Starvation ketoacidosis Code(s): E87.2 - ACIDOSIS Status: Acute (5) Anemia of renal disease Code(s): D63.1 - ANEMIA IN CHRONIC KIDNEY DISEASE Status: Chronic (6) Anxiety and depression Code(s): F41.8 - OTHER SPECIFIED ANXIETY DISORDERS Status: Chronic (7) CAD (coronary artery disease) Code(s): I25.10 - ATHSCL HEART DISEASE OF [place] CORONARY ARTERY W/O ANG PCTRS Status: Chronic (8) Chronic anticoagulation Code(s): Z79.01 - [facility] (CURRENT) USE OF ANTICOAGULANTS Status: Chronic (9) Depression Code(s): F32.9 - MAJOR DEPRESSIVE DISORDER, SINGLE EPISODE, UNSPECIFIED Status : Chronic (10) Diabetes mellitus type 2 Code(s): E11.9 - TYPE 2 DIABETES MELLITUS WITHOUT COMPLICATIONS Status: Chronic Comment: (11) Dyslipidemia Code(s): E78.5 - HYPERLIPIDEMIA, UNSPECIFIED Status: Chronic (12) ESRD (end stage renal disease) on dialysis Code(s): N18.6 - END STAGE RENAL DISEASE; Z99.2 - DEPENDENCE ON RENAL DIALYSIS Status: Chronic Comment: Dr Rivera (13) GERD (gastroesophageal reflux disease) Code(s): K21.9 - GASTRO-ESOPHAGEAL REFLUX DISEASE WITHOUT ESOPHAGITIS Status: Chronic (14) H/O deep venous thrombosis Code(s): Z86.718 - PERSONAL HISTORY OF OTHER VENOUS THROMBOSIS AND EMBOLISM Status: Chronic (15) H/O sick sinus syndrome Code(s): Z86.79 - PERSONAL HISTORY OF OTHER DISEASES OF THE CIRCULATORY SYSTEM Status: Chronic (16) Hx of below knee amputation Code(s): Z89.519 - ACQUIRED ABSENCE OF UNSPECIFIED LEG BELOW KNEE Status: Chronic Qualifiers: Laterality: right Qualified Code(s): Z89.511 - Acquired absence of right leg below knee (17) Hypertension Code(s): I10 - ESSENTIAL (PRIMARY) HYPERTENSION Status: Chronic (18) PVD (peripheral vascular disease) Code(s): I73.9 - PERIPHERAL VASCULAR DISEASE, UNSPECIFIED Status: Chronic (19) Secondary hyperparathyroidism of renal origin Code(s): N25.81 - SECONDARY HYPERPARATHYROIDISM OF RENAL ORIGIN Status: Acute (20) Swallowing dysfunction Code(s): R13.10 - DYSPHAGIA, UNSPECIFIED Status: Chronic (21) Thalassemia minor Code(s): D56.3 - THALASSEMIA MINOR Status: Chronic (22) Hypotension Status: Resolved (23) Warfarin-induced coagulopathy Code(s): D68.9 - COAGULATION DEFECT, UNSPECIFIED; T45.515A - ADVERSE EFFECT OF ANTICOAGULANTS, INITIAL ENCOUNTER Status: Resolved (24) Hypoglycemia Code(s): E16.2 - HYPOGLYCEMIA, UNSPECIFIED Status: Acute - Plan cont current plan of care, plan discussed w/ family, continue antibiotics, hospital social worker * as per leather case finisher, amikacin needs arrangement to give her with HD as an outpt basis and even if we order, may not come till end of next week * as per dr lyman recommendation, she will be done with amikacin therapy on * ideally pt should be in hospice but family declines that options * medication reviewed as below * symptomatic treatment. Review of Systems - Review of Systems Other: unable to review as pt is demented - Medications/Allergies Allergies/Adverse Reactions: Allergies Allergy/AdvReac Type Severity Reaction Status Date / Time [facility] Allergy Severe Anaphylaxis Uncoded 04/26/17 12:23 Medications: Current Medications Acetaminophen (Tylenol) 650 mg NV Q4H PRN PRN Reason: Headache/Fever or Pain Last Admin: 05/04/17 03:44 Dose: 650 mg Acetaminophen (Tylenol) 650 mg PO Q4H PRN PRN Reason: Headache/Fever or Pain Last Admin: 04/28/17 09:27 Dose: 650 mg Albuterol/Ipratropium (Duoneb) 3 ml NEB [id number] PRN PRN Reason: SOB &/or Wheezing Bisacodyl (Dulcolax) 10 mg NV Q24H PRN PRN Reason: Constipation Dextrose/Water (Dextrose 50%) 25 gm SLOW IVP PRN PRN PRN Reason: Hypoglycemia Last Admin: 05/06/17 18:39 Dose: 25 gm Epoetin Willem (Procrit) 4,000 units SC Q7D [facility] Last Admin: 04/30/17 12:01 Dose: 4,000 units Famotidine (Pepcid) 20 mg PO BID [facility] Last Admin: 05/07/17 08:34 Dose: 20 mg Fentanyl (Duragesic) 12 mcg TD Q3D [facility] Last Admin: 05/04/17 17:04 Dose: 12 mcg Glucagon (Glucagon) 1 mg IM PRN PRN PRN Reason: Hypoglycemia Last Admin: 05/02/17 11:40 Dose: 1 mg Guaifenesin (Robitussin Sf) 200 mg PO Q4H PRN PRN Reason: Cough Dextrose/Water (D5w) 1,000 mls @ 0 mls/hr IV .Q0M PRN; As Directed PRN Reason: Hypoglycemia Amikacin Sulfate 0.5 gm/ (Sodium Chloride) 102 mls @ 102 mls/hr IVPB MoWeFr [facility] Last Admin: 05/06/17 17:52 Dose: 102 mls Insulin Human Regular (Humulin R) 0 units SC .MILD SLIDING SCALE PRN PRN Reason: Mild Correctional Scale Insulin Human Regular (Humulin R) 0 units SC .BEDTIME SLIDING SC PRN PRN Reason: Bedtime Correctional Scale Metoprolol Tartrate (Lopressor) 12.5 mg PO BID [facility] Last Admin: 05/07/17 08:34 Dose: 12.5 mg Mineral Oil/White Petrolatum (Eucerin Cream) 0 gm TOP BIDPRN PRN PRN Reason: Dry Skin Miscellaneous Medication (Pharmacy To Dose) 1 each PO PRN PRN PRN Reason: GOAL INR = 2-3 Ondansetron HCl (Zofran Odt) 4 mg PO Q6H PRN PRN Reason: Nausea/Vomiting Ondansetron HCl (Zofran) 4 mg IVP Q6H PRN PRN Reason: Nausea/Vomiting Saccharomyces Boulardii (Florastor) 250 mg PO DAILY [facility] Last Admin: 05/07/17 08:35 Dose: 250 mg Sertraline HCl (Zoloft) 100 mg PO DAILY [facility] Last Admin: 05/07/17 08:34 Dose: 100 mg Sevelamer Carbonate (Renvela) 800 mg PO TID[facility] Last Admin: 05/07/17 08:34 Dose: 800 mg Sodium Chloride (Flush - Normal Saline) 10 ml IVF Q12HR [facility] Last Admin: 05/07/17 08:40 Dose: Not Given Sodium Chloride (Flush - Normal Saline) 10 ml IVF PRN PRN PRN Reason: Saline Flush Tramadol HCl (Ultram) 50 mg PO Q4H PRN PRN Reason: pain Last Admin: 05/06/17 22:36 Dose: 50 mg
[2017-05-07 13:12] VITALS: BMI 23.9
[2017-05-07] MEDS: Epoetin (ESRD) 20,000 UNITS/ML SC SCH (14:43)
[2017-05-07] MEDS: traMADol HCl 50 MG TAB PO PRN (18:26)
[2017-05-08] MEDS: traMADol HCl 50 MG TAB PO PRN ×2 (04:51→20:17)
[2017-05-08] MEDS ORDERED: Dextrose 50% Abboject 50 ML SYRINGE ONE ×2 (05:27→05:29)
[2017-05-08 06:54] LABS: Prothrombin Time 22.1 SEC (12.0-14.7)
[2017-05-08] MEDS ORDERED: Polyethylene Glycol 3350 17 GM Packet PO PRN (07:08)
[2017-05-08 07:40] LABS: #Eosinphils 0.1 thou/uL (0.0-0.7); #Lymphocytes 0.4 thou/uL (1.20-3.40); #Monocytes 0.5 thou/uL (0.11-0.59); #Neutrophils 9.1 thou/uL (1.40-6.50); %Eosinophils 0.5 % (0.0-10.0); %Lymphocytes 3.7 % (21.0-51.0); Hematocrit 20.8 % (36.0-47.0); Mean Platelet Volume 9.7 fL (7.4-10.4); Red Blood Cell (RBC) Count 2.51 mill/uL (4.20-5.40)
[2017-05-08] MEDS: Sevelamer Carbonate 800 MG TAB PO SCH ×4 (08:00→15:49)
[2017-05-08] MEDS: Ferrous Sulfate 325 MG TAB PO SCH (08:13)
[2017-05-08] MEDS: Acetaminophen 325 MG TAB PO PRN (08:13)
[2017-05-08] MEDS: Folic Acid/Vit B Comp W-C PO SCH (08:13)
[2017-05-08 08:14] LABS: AST (SGOT) 659 U/L (5-34); Anion Gap 29 mmol/L (10-20); Bilirubin, Total 0.9 mg/dL (0.2-1.2); Calcium 7.6 mg/dL (7.8-10.44); Carbon Dioxide 17 mmol/L (23-31); Chloride 103 mmol/L (98-107)
[2017-05-08] MEDS: Metoprolol Tartrate 25 MG TAB PO SCH ×3 (08:14→20:18)
[2017-05-08] MEDS: Saccharomyces boulardii 250 MG CAP PO SCH (08:14)
[2017-05-08] MEDS: Pantoprazole 40 MG GRANULES PACKET PO SCH (08:14)
[2017-05-08 08:20] LABS: ALT (SGPT) 95 U/L (8-55); Alkaline Phosphatase 94 U/L (40-150); BUN (Urea Nitrogen) 73 mg/dL (9.8-20.1); Calc. Creatinine Clearance 6 mL/min (70-130); Estimated GFR-MDRD 7; Globulin 3.2 g/dL (2.4-3.5); Protein, Total 5.6 g/dL (6.0-8.3)
--- NOTE | 2017-05-08 10:24 | PDOC.PN ---
- Subjective Encounter Start Date: 05/08/17 Encounter Start Time: 07:50 pt is again febrile, again hypoglycemic - Objective Resuscitation Status: Resuscitation Status DNR:Do Not Resuscitate MAR Reviewed: Yes Vital Signs & Weight: Vital Signs (12 hours) Temp Pulse Resp BP Pulse Ox 05/08/17 10:01 99.1 F 05/08/17 07:45 101.9 F H 78 16 153/71 H 98 05/08/17 00:00 100.2 F H 71 20 91/54 L 100 Weight Admit Weight 113 lb 8 oz Weight 122 lb 0.625 oz Result Diagrams: 05/08/17 06:38 05/08/17 06:38 Additional Labs: Accuchecks 05/08/17 05/08/17 05/08/17 05:34 05:19 04:59 POC Glucose 339 H Less than 35 L* Less than 35 L* 05/08/17 05/07/17 05/07/17 00:55 20:31 16:41 POC Glucose 96 109 117 H 05/07/17 11:38 POC Glucose 116 H Phys Exam - Physical Examination diffuse pain with movement HEENT: PERRLA Neck: no JVD, supple Respiratory: no wheezing, no rales, no rhonchi Cardiovascular: RRR, no significant murmur, no rub Gastrointestinal: soft, no distention dependent edema contracture Skin: normal turgor Dx/Plan (1) Encephalopathy acute Code(s): G93.40 - ENCEPHALOPATHY, UNSPECIFIED Status: Acute (2) Metabolic acidosis Code(s): E87.2 - ACIDOSIS Status: Acute (3) Sepsis with acute organ dysfunction Code(s): A41.9 - SEPSIS, UNSPECIFIED ORGANISM; R65.20 - SEVERE SEPSIS WITHOUT SEPTIC SHOCK Status: Acute (4) Starvation ketoacidosis Code(s): E87.2 - ACIDOSIS Status: Acute (5) Anemia of renal disease Code(s): D63.1 - ANEMIA IN CHRONIC KIDNEY DISEASE Status: Chronic (6) Anxiety and depression Code(s): F41.8 - OTHER SPECIFIED ANXIETY DISORDERS Status: Chronic (7) CAD (coronary artery disease) Code(s): I25.10 - ATHSCL HEART DISEASE OF [place] CORONARY ARTERY W/O ANG PCTRS Status: Chronic (8) Chronic anticoagulation Code(s): Z79.01 - [facility] (CURRENT) USE OF ANTICOAGULANTS Status: Chronic (9) Depression Code(s): F32.9 - MAJOR DEPRESSIVE DISORDER, SINGLE EPISODE, UNSPECIFIED Status : Chronic (10) Diabetes mellitus type 2 Code(s): E11.9 - TYPE 2 DIABETES MELLITUS WITHOUT COMPLICATIONS Status: Chronic Comment: (11) Dyslipidemia Code(s): E78.5 - HYPERLIPIDEMIA, UNSPECIFIED Status: Chronic (12) ESRD (end stage renal disease) on dialysis Code(s): N18.6 - END STAGE RENAL DISEASE; Z99.2 - DEPENDENCE ON RENAL DIALYSIS Status: Chronic Comment: Dr Rivera (13) GERD (gastroesophageal reflux disease) Code(s): K21.9 - GASTRO-ESOPHAGEAL REFLUX DISEASE WITHOUT ESOPHAGITIS Status: Chronic (14) H/O deep venous thrombosis Code(s): Z86.718 - PERSONAL HISTORY OF OTHER VENOUS THROMBOSIS AND EMBOLISM Status: Chronic (15) H/O sick sinus syndrome Code(s): Z86.79 - PERSONAL HISTORY OF OTHER DISEASES OF THE CIRCULATORY SYSTEM Status: Chronic (16) Hx of below knee amputation Code(s): Z89.519 - ACQUIRED ABSENCE OF UNSPECIFIED LEG BELOW KNEE Status: Chronic Qualifiers: Laterality: right Qualified Code(s): Z89.511 - Acquired absence of right leg below knee (17) Hypertension Code(s): I10 - ESSENTIAL (PRIMARY) HYPERTENSION Status: Chronic (18) PVD (peripheral vascular disease) Code(s): I73.9 - PERIPHERAL VASCULAR DISEASE, UNSPECIFIED Status: Chronic (19) Secondary hyperparathyroidism of renal origin Code(s): N25.81 - SECONDARY HYPERPARATHYROIDISM OF RENAL ORIGIN Status: Acute (20) Swallowing dysfunction Code(s): R13.10 - DYSPHAGIA, UNSPECIFIED Status: Chronic (21) Thalassemia minor Code(s): D56.3 - THALASSEMIA MINOR Status: Chronic (22) Hypotension Status: Resolved (23) Warfarin-induced coagulopathy Code(s): D68.9 - COAGULATION DEFECT, UNSPECIFIED; T45.515A - ADVERSE EFFECT OF ANTICOAGULANTS, INITIAL ENCOUNTER Status: Resolved (24) Hypoglycemia Code(s): E16.2 - HYPOGLYCEMIA, UNSPECIFIED Status: Acute - Plan cont current plan of care, plan discussed w/ family, continue antibiotics, social media director * will consult palliative care again * spoke to daughter to arrange family meeting for goal of care * medication reviewed as below * symptomatic treatment. * prognosis is very poor. Review of Systems - Review of Systems Other: unable to review as pt is demented - Medications/Allergies Allergies/Adverse Reactions: Allergies Allergy/AdvReac Type Severity Reaction Status Date / Time [facility] Allergy Severe Anaphylaxis Uncoded 04/26/17 12:23 Medications: Current Medications Acetaminophen (Tylenol) 650 mg SC Q4H PRN PRN Reason: Headache/Fever or Pain Last Admin: 05/04/17 03:44 Dose: 650 mg Acetaminophen (Tylenol) 650 mg PO Q4H PRN PRN Reason: Headache/Fever or Pain Last Admin: 05/08/17 08:13 Dose: 650 mg Albuterol/Ipratropium (Duoneb) 3 ml NEB [id number] PRN PRN Reason: SOB &/or Wheezing Atorvastatin Calcium (Lipitor) 20 mg PO HS [facility] Bisacodyl (Dulcolax) 10 mg SC Q24H PRN PRN Reason: Constipation Dextrose/Water (Dextrose 50%) 25 gm SLOW IVP PRN PRN PRN Reason: Hypoglycemia Last Admin: 05/06/17 18:39 Dose: 25 gm Epoetin Willem (Procrit) 4,000 units SC Q7D [facility] Last Admin: 05/07/17 14:43 Dose: 4,000 units Fentanyl (Duragesic) 12 mcg TD Q3D [facility] Last Admin: 05/07/17 17:04 Dose: 12 mcg Ferrous Sulfate (Feosol) 325 mg PO DAILY [facility] Last Admin: 05/08/17 08:13 Dose: 325 mg Glucagon (Glucagon) 1 mg IM PRN PRN PRN Reason: Hypoglycemia Last Admin: 05/08/17 05:03 Dose: 1 mg Guaifenesin (Robitussin Sf) 200 mg PO Q4H PRN PRN Reason: Cough Dextrose/Water (D5w) 1,000 mls @ 0 mls/hr IV .Q0M PRN; As Directed PRN Reason: Hypoglycemia Amikacin Sulfate 0.5 gm/ (Sodium Chloride) 102 mls @ 102 mls/hr IVPB MoWeFr [facility] Stop: 05/08/17 19:00 Last Admin: 05/06/17 17:52 Dose: 102 mls Metoprolol Tartrate (Lopressor) 12.5 mg PO BID [facility] Last Admin: 05/08/17 08:14 Dose: 12.5 mg Mineral Oil/White Petrolatum (Eucerin Cream) 0 gm TOP BIDPRN PRN PRN Reason: Dry Skin Ondansetron HCl (Zofran Odt) 4 mg PO Q6H PRN PRN Reason: Nausea/Vomiting Ondansetron HCl (Zofran) 4 mg IVP Q6H PRN PRN Reason: Nausea/Vomiting Pantoprazole Sodium (Protonix) 40 mg PO DAILY [facility] Last Admin: 05/08/17 08:14 Dose: 40 mg Polyethylene Glycol (Miralax) 17 gm PO DAILY PRN PRN Reason: Constipation Saccharomyces Boulardii (Florastor) 250 mg PO DAILY [facility] Last Admin: 05/08/17 08:14 Dose: 250 mg Sertraline HCl (Zoloft) 100 mg PO DAILY [facility] Last Admin: 05/08/17 08:13 Dose: 100 mg Sevelamer Carbonate (Renvela) 800 mg PO TID-WM [facility] Last Admin: 05/08/17 08:13 Dose: 800 mg Sodium Chloride (Flush - Normal Saline) 10 ml IVF Q12HR [facility] Last Admin: 05/08/17 08:14 Dose: 10 ml Sodium Chloride (Flush - Normal Saline) 10 ml IVF PRN PRN PRN Reason: Saline Flush Tramadol HCl (Ultram) 50 mg PO Q12H PRN PRN Reason: Pain Last Admin: 05/08/17 04:51 Dose: 50 mg Vitamin B Complex/Vit C/Folic Acid (Nephro-Leeann Tablet) 1 tab PO DAILY [facility] Last Admin: 05/08/17 08:13 Dose: 1 tab
[2017-05-08] MEDS: Dextrose 10% in Water 1,000 ML IV SCH (11:47)
[2017-05-08] MEDS: SODIUM CHLORIDE 0.9% IVPB SCH (14:07)
[2017-05-08] MEDS: AMIKACIN SULFATE IVPB SCH (14:07)
[2017-05-08] MEDS: Atorvastatin Calcium 20 MG TAB PO SCH (20:12)
[2017-05-09] MEDS: Acetaminophen 325 MG TAB PO PRN (03:44)
[2017-05-09 06:26] LABS: Prothrombin Time 19.9 SEC (12.0-14.7)
[2017-05-09] MEDS: Acetaminophen 650 MG Suppository PR PRN (08:48)
[2017-05-09] MEDS: Metoprolol Tartrate 25 MG TAB PO SCH ×2 (08:56→20:20)
[2017-05-09] MEDS: Ferrous Sulfate 325 MG TAB PO SCH (09:01)
[2017-05-09] MEDS: Folic Acid/Vit B Comp W-C PO SCH (09:01)
[2017-05-09] MEDS: Sevelamer Carbonate 800 MG TAB PO SCH ×3 (09:01→18:14)
[2017-05-09] MEDS: Pantoprazole 40 MG GRANULES PACKET PO SCH (09:02)
[2017-05-09] MEDS: Saccharomyces boulardii 250 MG CAP PO SCH (09:02)
[2017-05-09] MEDS ORDERED: Heparin 1,000 UNITS/ML VIAL ONE (11:11)
[2017-05-09] MEDS ORDERED: Ketorolac Tromethamine 30 MG/ML VIAL IVP SCH (11:15)
[2017-05-09] MEDS ORDERED: Lidocaine 2% Jelly 5 ML TUBE TOP SCH (11:45)
--- NOTE | 2017-05-09 11:48 | PDOC.PN ---
- Subjective Encounter Start Date: 05/09/17 Encounter Start Time: 08:00 pt has again high fever, hurting all over, not eating well, she is declining, family wanted to continue care with HD - Objective Resuscitation Status: Resuscitation Status DNR:Do Not Resuscitate MAR Reviewed: Yes Vital Signs & Weight: Vital Signs (12 hours) Temp Pulse Resp BP Pulse Ox 05/09/17 08:00 103.0 F H 74 20 97/68 95 05/09/17 04:00 97.9 F 74 18 97/63 95 05/09/17 00:00 100.7 F H 86 18 104/59 L 100 Weight Admit Weight 113 lb 8 oz Weight 123 lb Result Diagrams: 05/08/17 06:38 05/08/17 06:38 Additional Labs: Accuchecks 05/09/17 05/09/17 05/09/17 05:33 03:40 00:31 POC Glucose 106 96 95 05/08/17 05/08/17 05/08/17 20:26 16:20 11:28 POC Glucose 139 H 149 H 109 05/08/17 08:12 POC Glucose 132 H Phys Exam - Physical Examination Constitutional: NAD HEENT: PERRLA Neck: no JVD, supple Respiratory: no wheezing, no rales, no rhonchi Cardiovascular: RRR, no significant murmur, no rub Gastrointestinal: soft, non-tender, no distention, positive bowel sounds Musculoskeletal: no edema, pulses present right BKA unable to examine Skin: no rash, normal turgor Dx/Plan (1) Encephalopathy acute Code(s): G93.40 - ENCEPHALOPATHY, UNSPECIFIED Status: Acute (2) Metabolic acidosis Code(s): E87.2 - ACIDOSIS Status: Acute (3) Sepsis with acute organ dysfunction Code(s): A41.9 - SEPSIS, UNSPECIFIED ORGANISM; R65.20 - SEVERE SEPSIS WITHOUT SEPTIC SHOCK Status: Acute (4) Starvation ketoacidosis Code(s): E87.2 - ACIDOSIS Status: Acute (5) Anemia of renal disease Code(s): D63.1 - ANEMIA IN CHRONIC KIDNEY DISEASE Status: Chronic (6) Anxiety and depression Code(s): F41.8 - OTHER SPECIFIED ANXIETY DISORDERS Status: Chronic (7) CAD (coronary artery disease) Code(s): I25.10 - ATHSCL HEART DISEASE OF [place] CORONARY ARTERY W/O ANG PCTRS Status: Chronic (8) Chronic anticoagulation Code(s): Z79.01 - [facility] (CURRENT) USE OF ANTICOAGULANTS Status: Chronic (9) Depression Code(s): F32.9 - MAJOR DEPRESSIVE DISORDER, SINGLE EPISODE, UNSPECIFIED Status : Chronic (10) Diabetes mellitus type 2 Code(s): E11.9 - TYPE 2 DIABETES MELLITUS WITHOUT COMPLICATIONS Status: Chronic Comment: (11) Dyslipidemia Code(s): E78.5 - HYPERLIPIDEMIA, UNSPECIFIED Status: Chronic (12) ESRD (end stage renal disease) on dialysis Code(s): N18.6 - END STAGE RENAL DISEASE; Z99.2 - DEPENDENCE ON RENAL DIALYSIS Status: Chronic Comment: Dr Rivera (13) GERD (gastroesophageal reflux disease) Code(s): K21.9 - GASTRO-ESOPHAGEAL REFLUX DISEASE WITHOUT ESOPHAGITIS Status: Chronic (14) H/O deep venous thrombosis Code(s): Z86.718 - PERSONAL HISTORY OF OTHER VENOUS THROMBOSIS AND EMBOLISM Status: Chronic (15) H/O sick sinus syndrome Code(s): Z86.79 - PERSONAL HISTORY OF OTHER DISEASES OF THE CIRCULATORY SYSTEM Status: Chronic (16) Hx of below knee amputation Code(s): Z89.519 - ACQUIRED ABSENCE OF UNSPECIFIED LEG BELOW KNEE Status: Chronic Qualifiers: Laterality: right Qualified Code(s): Z89.511 - Acquired absence of right leg below knee (17) Hypertension Code(s): I10 - ESSENTIAL (PRIMARY) HYPERTENSION Status: Chronic (18) PVD (peripheral vascular disease) Code(s): I73.9 - PERIPHERAL VASCULAR DISEASE, UNSPECIFIED Status: Chronic (19) Secondary hyperparathyroidism of renal origin Code(s): N25.81 - SECONDARY HYPERPARATHYROIDISM OF RENAL ORIGIN Status: Acute (20) Swallowing dysfunction Code(s): R13.10 - DYSPHAGIA, UNSPECIFIED Status: Chronic (21) Thalassemia minor Code(s): D56.3 - THALASSEMIA MINOR Status: Chronic (22) Hypotension Status: Resolved (23) Warfarin-induced coagulopathy Code(s): D68.9 - COAGULATION DEFECT, UNSPECIFIED; T45.515A - ADVERSE EFFECT OF ANTICOAGULANTS, INITIAL ENCOUNTER Status: Resolved (24) Hypoglycemia Code(s): E16.2 - HYPOGLYCEMIA, UNSPECIFIED Status: Acute - Plan cont current plan of care, continue antibiotics * will repeat labs tomorrow * once afebrile, will give unit of PRBC * will start meropenam and vancomycin * medication reviewed as below * symptomatic treatment. * prognosis is very poor. Review of Systems - Review of Systems Other: unable to review as pt is demented - Medications/Allergies Allergies/Adverse Reactions: Allergies Allergy/AdvReac Type Severity Reaction Status Date / Time [facility] Allergy Severe Anaphylaxis Uncoded 04/26/17 12:23 Medications: Current Medications Acetaminophen (Tylenol) 650 mg [place] Q4H PRN PRN Reason: Headache/Fever or Pain Last Admin: 05/09/17 08:48 Dose: 650 mg Acetaminophen (Tylenol) 650 mg PO Q4H PRN PRN Reason: Headache/Fever or Pain Last Admin: 05/09/17 03:44 Dose: 650 mg Albuterol/Ipratropium (Duoneb) 3 ml NEB [id number] PRN PRN Reason: SOB &/or Wheezing Atorvastatin Calcium (Lipitor) 20 mg PO HS [facility] Last Admin: 05/08/17 20:12 Dose: Not Given Bisacodyl (Dulcolax) 10 mg RI Q24H PRN PRN Reason: Constipation Dextrose/Water (Dextrose 50%) 25 gm SLOW IVP PRN PRN PRN Reason: Hypoglycemia Last Admin: 05/06/17 18:39 Dose: 25 gm Epoetin Willem (Procrit) 4,000 units SC Q7D [facility] Last Admin: 05/07/17 14:43 Dose: 4,000 units Ferrous Sulfate (Feosol) 325 mg PO DAILY [facility] Last Admin: 05/09/17 09:01 Dose: Not Given Glucagon (Glucagon) 1 mg IM PRN PRN PRN Reason: Hypoglycemia Last Admin: 05/08/17 05:03 Dose: 1 mg Guaifenesin (Robitussin Sf) 200 mg PO Q4H PRN PRN Reason: Cough Heparin Sodium (Porcine) (Heparin Lock Flush 100 Units/Ml) 500 units IV PRN PRN PRN Reason: Heparin Flush Dextrose/Water (D5w) 1,000 mls @ 0 mls/hr IV .Q0M PRN; As Directed PRN Reason: Hypoglycemia Dextrose/Water (Dextrose 10% In Water) 1,000 mls @ 50 mls/hr IV .Q20H [facility] Last Admin: 05/08/17 11:47 Dose: 1,000 mls Ketorolac Tromethamine (Toradol) 15 mg IVP NOW [facility] Stop: 05/09/17 13:15 Lidocaine HCl (Xylocaine 2%) 0 ml TOP NOW [facility] Stop: 05/09/17 13:45 Metoprolol Tartrate (Lopressor) 12.5 mg PO BID [facility] Last Admin: 05/09/17 08:56 Dose: Not Given Mineral Oil/White Petrolatum (Eucerin Cream) 0 gm TOP BIDPRN PRN PRN Reason: Dry Skin Ondansetron HCl (Zofran Odt) 4 mg PO Q6H PRN PRN Reason: Nausea/Vomiting Ondansetron HCl (Zofran) 4 mg IVP Q6H PRN PRN Reason: Nausea/Vomiting Pantoprazole Sodium (Protonix) 40 mg PO DAILY [facility] Last Admin: 05/09/17 09:02 Dose: Not Given Polyethylene Glycol (Miralax) 17 gm PO DAILY PRN PRN Reason: Constipation Saccharomyces Boulardii (Florastor) 250 mg PO DAILY [facility] Last Admin: 05/09/17 09:02 Dose: Not Given Sertraline HCl (Zoloft) 100 mg PO DAILY [facility] Last Admin: 05/09/17 08:57 Dose: Not Given Sevelamer Carbonate (Renvela) 800 mg PO TID-[facility] Last Admin: 05/09/17 09:01 Dose: Not Given Sodium Chloride (Flush - Normal Saline) 10 ml IVF Q12HR [facility] Last Admin: 05/09/17 08:57 Dose: Not Given Sodium Chloride (Flush - Normal Saline) 10 ml IVF PRN PRN PRN Reason: Saline Flush Tramadol HCl (Ultram) 50 mg PO Q12H PRN PRN Reason: Pain Last Admin: 05/08/17 20:17 Dose: 50 mg Vitamin B Complex/Vit C/Folic Acid (Nephro-Leeann Tablet) 1 tab PO DAILY [facility] Last Admin: 05/09/17 09:01 Dose: Not Given
[2017-05-09] MEDS ORDERED: Lidocaine 1% (PF) 30 ML VIAL ONE (12:04)
[2017-05-09] MEDS: Dextrose 10% in Water 1,000 ML IV SCH (12:12)
[2017-05-09] MEDS ORDERED: Vancomycin HCl 750 MG in Sodium Chloride 0.9% 250 ML 250 ML IVPB SCH (12:45)
[2017-05-09] MEDS ORDERED: Vancomycin HCl 500 MG in Sodium Chloride 0.9% 100 ML IVPB SCH (12:45)
[2017-05-09] MEDS ORDERED: Vancomycin HCl 1.25 GM in Sodium Chloride 0.9% 250 ML 250 ML IVPB SCH (12:45)
[2017-05-09] MEDS ORDERED: HOLD VANCOMYCIN FOR LEVEL >20 FS SCH (12:45)
[2017-05-09] MEDS ORDERED: Lidocaine 1% (PF) 30 ML VIAL FS SCH (13:00)
[2017-05-09] MEDS ORDERED: Vancomycin HCl 1 GM in Premix Bag 1 BAG IVPB SCH (13:30)
[2017-05-09] MEDS: Meropenem 500 MG in Sodium Chloride 0.9% 100 ML IVPB SCH ×2 (13:32→15:48)
[2017-05-09] MEDS: Vancomycin HCl 1 GM in Premix Bag 1 BAG IVPB SCH (13:41)
--- NOTE | 2017-05-09 14:09 | OP ---
DATE OF PROCEDURE: 05/09/2017 PREOPERATIVE DIAGNOSIS: Chronic renal failure, need for urgent dialysis access. POSTOPERATIVE DIAGNOSIS: Chronic renal failure, need for urgent dialysis access. PROCEDURE: Right femoral Trialysis dialysis catheter. SURGEON: James Franco M.D. ANESTHESIA: Local. ESTIMATED BLOOD LOSS: Minimal. COMPLICATIONS: None. TECHNIQUE: The patient's right groin was shaved, prepped and draped in a sterile fashion. Local an esthetic infiltrated over the right femoral vein. Femoral vein cannulated using a Seldinger needle. Wire was passed under no tension. The wire was used as a guide to dilate the right femoral vein. Trialysis catheter was threaded to its fullest extent. The wire is withdrawn. All [address] and flushed without difficulty. It was flushed with a saline solution. The Trialysis catheter sutured to the groin skin using enclosed nylon suture. Sterile dressings are placed. The patient w ill undergo dialysis soon.
[2017-05-09] MEDS: Atorvastatin Calcium 20 MG TAB PO SCH (20:18)
[2017-05-09] MEDS: traMADol HCl 50 MG TAB PO PRN (20:18)
[2017-05-10 06:15] LABS: ALT (SGPT) 103 U/L (8-55); AST (SGOT) 379 U/L (5-34); Alkaline Phosphatase 100 U/L (40-150); Anion Gap 17 mmol/L (10-20); BUN (Urea Nitrogen) 32 mg/dL (9.8-20.1); Bilirubin, Total 1.1 mg/dL (0.2-1.2); Calc. Creatinine Clearance 10 mL/min (70-130); Calcium 7.7 mg/dL (7.8-10.44); Carbon Dioxide 26 mmol/L (23-31); Chloride 101 mmol/L (98-107); Estimated GFR-MDRD 15; Globulin 3.2 g/dL (2.4-3.5); Protein, Total 5.6 g/dL (6.0-8.3)
[2017-05-10 08:51] LABS: #Eosinphils 0.1 thou/uL (0.0-0.7); #Lymphocytes 0.9 thou/uL (1.20-3.40); #Monocytes 0.5 thou/uL (0.11-0.59); #Neutrophils 6.6 thou/uL (1.40-6.50); %Lymphocytes 11.5 % (21.0-51.0); %Monocytes 6.2 % (0.0-10.0); Hematocrit 29.1 % (36.0-47.0); Mean Platelet Volume 9.8 fL (7.4-10.4); Red Blood Cell (RBC) Count 3.46 mill/uL (4.20-5.40); White Blood Cell (WBC) Count 8.1 thou/uL (4.8-10.8)
[2017-05-10] MEDS ORDERED: Meropenem 500 MG in Sodium Chloride 0.9% 100 ML IVPB SCH (09:00)
[2017-05-10] MEDS: Dextrose 10% in Water 1,000 ML IV SCH (09:41)
[2017-05-10] MEDS: Sevelamer Carbonate 800 MG TAB PO SCH ×3 (09:42→17:27)
[2017-05-10] MEDS: Ferrous Sulfate 325 MG TAB PO SCH (09:43)
[2017-05-10] MEDS: Folic Acid/Vit B Comp W-C PO SCH (09:43)
[2017-05-10] MEDS: Saccharomyces boulardii 250 MG CAP PO SCH (09:47)
[2017-05-10] MEDS: Pantoprazole 40 MG GRANULES PACKET PO SCH (09:47)
[2017-05-10] MEDS: Metoprolol Tartrate 25 MG TAB PO SCH ×2 (09:47→21:38)
--- NOTE | 2017-05-10 10:18 | PDOC.PN ---
- Subjective Encounter Start Date: 05/10/17 Encounter Start Time: 08:30 Patient seen and examined. No overnight events, no fever today - Objective Resuscitation Status: Resuscitation Status DNR:Do Not Resuscitate MAR Reviewed: Yes Vital Signs & Weight: Vital Signs (12 hours) Temp Pulse Resp BP Pulse Ox 05/10/17 08:04 98.6 F 73 22 H 106/47 L 100 05/10/17 04:00 97.5 F L 68 20 131/87 100 05/10/17 00:00 97.5 F L 60 20 110/41 L 100 Weight Admit Weight 113 lb 8 oz Weight 119 lb I&O: 05/09/17 05/10/17 05/11/17 06:59 06:59 06:59 Intake Total 1160 Output Total 250 Balance 910 Result Diagrams: 05/10/17 08:32 05/10/17 05:32 Additional Labs: Accuchecks 05/10/17 05/10/17 05/09/17 05:12 00:24 20:29 POC Glucose 114 H 124 H 121 H 05/09/17 05/09/17 19:22 11:30 POC Glucose 100 107 Phys Exam - Physical Examination Constitutional: NAD HEENT: PERRLA, sclera anicteric Neck: no JVD, supple Respiratory: no wheezing, no rales, no rhonchi Cardiovascular: RRR, no significant murmur Gastrointestinal: soft, no distention Musculoskeletal: no edema, pulses present dependant edema+ unable to examine Lymphatic: no nodes Dx/Plan (1) Encephalopathy acute Code(s): G93.40 - ENCEPHALOPATHY, UNSPECIFIED Status: Acute (2) Metabolic acidosis Code(s): E87.2 - ACIDOSIS Status: Acute (3) Sepsis with acute organ dysfunction Code(s): A41.9 - SEPSIS, UNSPECIFIED ORGANISM; R65.20 - SEVERE SEPSIS WITHOUT SEPTIC SHOCK Status: Acute (4) Starvation ketoacidosis Code(s): E87.2 - ACIDOSIS Status: Acute (5) Anemia of renal disease Code(s): D63.1 - ANEMIA IN CHRONIC KIDNEY DISEASE Status: Chronic (6) Anxiety and depression Code(s): F41.8 - OTHER SPECIFIED ANXIETY DISORDERS Status: Chronic (7) CAD (coronary artery disease) Code(s): I25.10 - ATHSCL HEART DISEASE OF [place] CORONARY ARTERY W/O ANG PCTRS Status: Chronic (8) Chronic anticoagulation Code(s): Z79.01 - [facility] (CURRENT) USE OF ANTICOAGULANTS Status: Chronic (9) Depression Code(s): F32.9 - MAJOR DEPRESSIVE DISORDER, SINGLE EPISODE, UNSPECIFIED Status : Chronic (10) Diabetes mellitus type 2 Code(s): E11.9 - TYPE 2 DIABETES MELLITUS WITHOUT COMPLICATIONS Status: Chronic Comment: (11) Dyslipidemia Code(s): E78.5 - HYPERLIPIDEMIA, UNSPECIFIED Status: Chronic (12) ESRD (end stage renal disease) on dialysis Code(s): N18.6 - END STAGE RENAL DISEASE; Z99.2 - DEPENDENCE ON RENAL DIALYSIS Status: Chronic Comment: Dr Rivera (13) GERD (gastroesophageal reflux disease) Code(s): K21.9 - GASTRO-ESOPHAGEAL REFLUX DISEASE WITHOUT ESOPHAGITIS Status: Chronic (14) H/O deep venous thrombosis Code(s): Z86.718 - PERSONAL HISTORY OF OTHER VENOUS THROMBOSIS AND EMBOLISM Status: Chronic (15) H/O sick sinus syndrome Code(s): Z86.79 - PERSONAL HISTORY OF OTHER DISEASES OF THE CIRCULATORY SYSTEM Status: Chronic (16) Hx of below knee amputation Code(s): Z89.519 - ACQUIRED ABSENCE OF UNSPECIFIED LEG BELOW KNEE Status: Chronic Qualifiers: Laterality: right Qualified Code(s): Z89.511 - Acquired absence of right leg below knee (17) Hypertension Code(s): I10 - ESSENTIAL (PRIMARY) HYPERTENSION Status: Chronic (18) PVD (peripheral vascular disease) Code(s): I73.9 - PERIPHERAL VASCULAR DISEASE, UNSPECIFIED Status: Chronic (19) Secondary hyperparathyroidism of renal origin Code(s): N25.81 - SECONDARY HYPERPARATHYROIDISM OF RENAL ORIGIN Status: Acute (20) Swallowing dysfunction Code(s): R13.10 - DYSPHAGIA, UNSPECIFIED Status: Chronic (21) Thalassemia minor Code(s): D56.3 - THALASSEMIA MINOR Status: Chronic (22) Hypotension Status: Resolved (23) Warfarin-induced coagulopathy Code(s): D68.9 - COAGULATION DEFECT, UNSPECIFIED; T45.515A - ADVERSE EFFECT OF ANTICOAGULANTS, INITIAL ENCOUNTER Status: Resolved (24) Hypoglycemia Code(s): E16.2 - HYPOGLYCEMIA, UNSPECIFIED Status: Acute - Plan cont current plan of care, continue antibiotics * femoral HD catheter placed, will consider transfusion with HD * continue D 10% * continue vancomycin and meropenam * medication reviewed as below * symptomatic treatment. * prognosis is very poor * without hospice pt is not stable for discharge, as she will be right back in hospital. Review of Systems - Review of Systems Other: unable to review as pt is demented - Medications/Allergies Allergies/Adverse Reactions: Allergies Allergy/AdvReac Type Severity Reaction Status Date / Time [facility] Allergy Severe Anaphylaxis Uncoded 04/26/17 12:23 Medications: Current Medications Acetaminophen (Tylenol) 650 mg [place] Q4H PRN PRN Reason: Headache/Fever or Pain Last Admin: 05/09/17 08:48 Dose: 650 mg Acetaminophen (Tylenol) 650 mg PO Q4H PRN PRN Reason: Headache/Fever or Pain Last Admin: 05/09/17 03:44 Dose: 650 mg Albuterol/Ipratropium (Duoneb) 3 ml NEB [id number] PRN PRN Reason: SOB &/or Wheezing Atorvastatin Calcium (Lipitor) 20 mg PO HS [facility] Last Admin: 05/09/17 20:18 Dose: 20 mg Bisacodyl (Dulcolax) 10 mg [place] Q24H PRN PRN Reason: Constipation Dextrose/Water (Dextrose 50%) 25 gm SLOW IVP PRN PRN PRN Reason: Hypoglycemia Last Admin: 05/06/17 18:39 Dose: 25 gm Epoetin Willem (Procrit) 4,000 units SC Q7D [facility] Last Admin: 05/07/17 14:43 Dose: 4,000 units Ferrous Sulfate (Feosol) 325 mg PO DAILY [facility] Last Admin: 05/10/17 09:43 Dose: Not Given Glucagon (Glucagon) 1 mg IM PRN PRN PRN Reason: Hypoglycemia Last Admin: 05/08/17 05:03 Dose: 1 mg Guaifenesin (Robitussin Sf) 200 mg PO Q4H PRN PRN Reason: Cough Heparin Sodium (Porcine) (Heparin Lock Flush 100 Units/Ml) 500 units IV PRN PRN PRN Reason: Heparin Flush Last Admin: 05/09/17 13:27 Dose: 500 unit Dextrose/Water (D5w) 1,000 mls @ 0 mls/hr IV .Q0M PRN; As Directed PRN Reason: Hypoglycemia Dextrose/Water (Dextrose 10% In Water) 1,000 mls @ 50 mls/hr IV .Q20H [facility] Last Admin: 05/10/17 09:41 Dose: 1,000 mls Meropenem 500 mg/ Sodium (Chloride) 100 mls @ 200 mls/hr IVPB DAILY [facility] Last Admin: 05/10/17 09:46 Dose: 100 mls Vancomycin HCl 1.25 gm/ Sodium (Chloride) 250 mls @ 166.667 mls/hr IVPB [facility] Vancomycin HCl 1 gm/ Device 200 mls @ 200 mls/hr IVPB [facility] Vancomycin HCl 750 mg/ Sodium (Chloride) 250 mls @ 250 mls/hr IVPB [facility] Vancomycin HCl 500 mg/ Sodium (Chloride) 100 mls @ 100 mls/hr IVPB [facility] Metoprolol Tartrate (Lopressor) 12.5 mg PO BID [facility] Last Admin: 05/10/17 09:47 Dose: Not Given Mineral Oil/White Petrolatum (Eucerin Cream) 0 gm TOP BIDPRN PRN PRN Reason: Dry Skin Miscellaneous Medication (Pharmacy To Dose) 0 each IVPB ASDIR PRN PRN Reason: Pharmacy to Dose VANCOMYCIN Hold Vancomycin For (Level >20) 0 each FS .AT DIALYSIS [facility] Ondansetron HCl (Zofran Odt) 4 mg PO Q6H PRN PRN Reason: Nausea/Vomiting Ondansetron HCl (Zofran) 4 mg IVP Q6H PRN PRN Reason: Nausea/Vomiting Pantoprazole Sodium (Protonix) 40 mg PO DAILY [facility] Last Admin: 05/10/17 09:47 Dose: Not Given Polyethylene Glycol (Miralax) 17 gm PO DAILY PRN PRN Reason: Constipation Saccharomyces Boulardii (Florastor) 250 mg PO DAILY [facility] Last Admin: 05/10/17 09:47 Dose: Not Given Sertraline HCl (Zoloft) 100 mg PO DAILY [facility] Last Admin: 05/10/17 09:47 Dose: Not Given Sevelamer Carbonate (Renvela) 800 mg PO TID-[facility] Last Admin: 05/10/17 09:42 Dose: Not Given Sodium Chloride (Flush - Normal Saline) 10 ml IVF Q12HR [facility] Last Admin: 05/10/17 09:47 Dose: Not Given Sodium Chloride (Flush - Normal Saline) 10 ml IVF PRN PRN PRN Reason: Saline Flush Last Admin: 05/09/17 13:29 Dose: 10 ml Tramadol HCl (Ultram) 50 mg PO Q12H PRN PRN Reason: Pain Last Admin: 05/09/17 20:18 Dose: 50 mg Vitamin B Complex/Vit C/Folic Acid (Nephro-Leeann Tablet) 1 tab PO DAILY [facility] Last Admin: 05/10/17 09:43 Dose: Not Given
[2017-05-10] MEDS: Dextrose 50% Abboject 50 ML SYRINGE SLOW IVP PRN (11:26)
[2017-05-10] MEDS: Acetaminophen 650 MG Suppository PR PRN ×2 (11:27→18:34)
[2017-05-10] MEDS: Atorvastatin Calcium 20 MG TAB PO SCH (21:38)
[2017-05-11] MEDS: Dextrose 10% in Water 1,000 ML IV SCH (06:18)
[2017-05-11 08:18] LABS: Prothrombin Time 15.8 SEC (12.0-14.7)
[2017-05-11 08:53] LABS: #Eosinphils 0.1 thou/uL (0.0-0.7); #Monocytes 0.3 thou/uL (0.11-0.59); #Neutrophils 8.9 thou/uL (1.40-6.50); %Basophils 0.2 % (0.0-1.0); %Eosinophils 0.7 % (0.0-10.0); %Lymphocytes 9.8 % (21.0-51.0); %Monocytes 3.3 % (0.0-10.0); Hypochromia MODERATE=16-30 cells (100X) (0-5/hpf); Mean Platelet Volume 10.1 fL (7.4-10.4); Polychromasia SLIGHT = 2-3 cells (100X) (0-2/hpf); Red Blood Cell (RBC) Count 3.34 mill/uL (4.20-5.40); Schistocytes SLIGHT = 2-5 cells (100X) (0-1/hpf); Target Cells MODERATE= 6-15 cells (100X) (0-1/hpf); White Blood Cell (WBC) Count 10.3 thou/uL (4.8-10.8)
[2017-05-11 09:47] LABS: Anion Gap 13 mmol/L (10-20); Carbon Dioxide 29 mmol/L (23-31); Chloride 101 mmol/L (98-107)
[2017-05-11 09:48] LABS: BUN (Urea Nitrogen) 19 mg/dL (9.8-20.1); BUN/Creatinine Ratio 8.41
[2017-05-11 09:51] LABS: Calc. Creatinine Clearance 16 mL/min (70-130); Estimated GFR-MDRD 25
[2017-05-11 10:11] LABS: Phosphorus 2.2 mg/dL (2.3-4.7)
[2017-05-11 10:12] LABS: Vancomycin, Random 7.2 ug/mL (See Comment)
[2017-05-11] MEDS: Folic Acid/Vit B Comp W-C PO SCH ×2 (10:14→12:10)
[2017-05-11] MEDS: Ferrous Sulfate 325 MG TAB PO SCH ×2 (10:14→12:09)
[2017-05-11] MEDS: Sevelamer Carbonate 800 MG TAB PO SCH ×4 (10:14→17:05)
[2017-05-11] MEDS: Metoprolol Tartrate 25 MG TAB PO SCH ×2 (10:15→20:10)
[2017-05-11] MEDS: Saccharomyces boulardii 250 MG CAP PO SCH (10:15)
[2017-05-11] MEDS: Pantoprazole 40 MG GRANULES PACKET PO SCH ×2 (10:15→12:10)
--- NOTE | 2017-05-11 10:25 | CON ---
DATE OF CONSULTATION: 05/11/2017 HISTORY OF PRESENT ILLNESS: Carlo Dominguez is an 82-year-old female senior care resident [facility] Dr. Rivera. In 2007, I placed a left Peggy fistula. Apparently she was referred to [facility] for some reason for intervention in the interim. She had some renal rec overy then began undergoing dialysis in 2009. She has been to Dr. Neely[facility] on one occasion and had intervention demonstrating some radial arterial inflow and balloon angiopl asty problems, but no outflow problem. She has left subclavian vein pacemaker. She is admitted thi s hospitalization with a thrombosed fistula. I have been asked to see her. [facility] the patient is somnolent, noncommunicative with bilateral upper extremity contractures. S he has wet respirations. I have talked to the dialysis technicians and they stated that Dr. Rivera has talked to the family regarding cessation of dialysis, but the family wants to continue this. I then called the daughter per telephone and she states that it was the patient's wishes that she cont inue dialysis. However, the patient does not communicate. The daughter states the patient was comm unicating to the family yesterday. Today, the patient is noncommunicative. The nurses state she naidu s not communicated since she has been in the hospital. Dr. Franco over the weekend placed a groin Trialysis catheter. I called to check on her once I received the consult and a right shoulder IV wa s removed. The patient's left arm Peggy fistula is thrombosed in the arterial inflow vein, near th e wrist is soft with faint pulsation. When I perform this fistula in 2007, dorsal hand vein was mob ilized and transposed the radial artery to reach. The fistula was well formed above the wrist, but clotted. With a pacemaker, I discussed with Dr. Neely. He states that her venous outflow has been patent on the last exam. I do not know exactly when that was done. Family is discussing joselin nued dialysis wishes and we will await their decision, pending decision, consideration for thrombect mya and revision of fistula could be formed, intraoperative angiograms, possible dialysis catheter. They understand that general anesthetic would be required for this and they would have the operativ e risk of stroke or cardiac problems. We will await their decision. ALLERGIES: None. TOBACCO: None. ALCOHOL: None. MEDICATIONS: P.r.n. Tylenol, Lipitor 20 mg at bedtime, Procrit q.7 days. She is on meropenem for s ome reason, Lopressor 12.5 b.i.d., MiraLax daily, Protonix daily, Zoloft 100 mg daily, tramadol p.r. n. PAST SURGICAL HISTORY: Dialysis access left arm, right [id number] amputation after amputation o f toe and interventional attempts. PAST MEDICAL HISTORY: End-stage renal disease, deconditioning. REVIEW OF SYSTEMS: Noncontributory. PHYSICAL EXAMINATION: VITAL SIGNS: Height 4 foot 11, 118 pounds, 23 BMI. The patient has sonorous respirations. She has a deviated gaze upward. She does not communicate. She does not respond to pain. She has wet resp irations She is not responsive. LUNGS: Lungs with coarse rhonchi. CARDIAC: Regular rate and rhythm. ABDOMEN: Soft, obese. EXTREMITIES: Left forearm Peggy fistula thrombosed, soft vein just beyond her radial artery, thro mbus in the fistula proximal 2/3 forearm. ASSESSMENT AND PLAN: Dysfunctional fistula left forearm. Await the family's decision regarding cess ation of dialysis. Pending their decision if they want to continue dialysis would plan to declot th is today and revise it and intraoperative angiograms.
--- NOTE | 2017-05-11 11:39 | PDOC.PN ---
- Subjective Encounter Start Date: 05/11/17 Encounter Start Time: 10:20 Patient seen and examined. No new complaints. No overnight events - Objective Resuscitation Status: Resuscitation Status DNR:Do Not Resuscitate MAR Reviewed: Yes Vital Signs & Weight: Vital Signs (12 hours) Temp Pulse Resp BP Pulse Ox 05/11/17 03:30 98.6 F 96 18 146/99 H 100 Weight Admit Weight 113 lb 8 oz Weight 118 lb 9 oz I&O: 05/10/17 05/11/17 05/12/17 06:59 06:59 06:59 Intake Total 1160 820 Output Total 250 0 Balance 910 820 Result Diagrams: 05/11/17 07:35 05/11/17 07:35 Additional Labs: Accuchecks 05/11/17 05/11/17 05/10/17 08:01 04:10 23:49 POC Glucose 101 114 H 112 H 05/10/17 05/10/17 05/10/17 20:32 16:22 13:15 POC Glucose 152 H 186 H 154 H 05/10/17 11:18 POC Glucose 56 L* Phys Exam - Physical Examination Constitutional: NAD HEENT: PERRLA, moist MMs, sclera anicteric Neck: no JVD, supple Respiratory: no wheezing, no rales, no rhonchi Cardiovascular: RRR, no significant murmur, no rub Gastrointestinal: soft, non-tender, no distention, positive bowel sounds rigth BKA Psychiatric: normal affect Skin: no rash, normal turgor Dx/Plan (1) Encephalopathy acute Code(s): G93.40 - ENCEPHALOPATHY, UNSPECIFIED Status: Acute (2) Metabolic acidosis Code(s): E87.2 - ACIDOSIS Status: Acute (3) Sepsis with acute organ dysfunction Code(s): A41.9 - SEPSIS, UNSPECIFIED ORGANISM; R65.20 - SEVERE SEPSIS WITHOUT SEPTIC SHOCK Status: Acute (4) Starvation ketoacidosis Code(s): E87.2 - ACIDOSIS Status: Acute (5) Anemia of renal disease Code(s): D63.1 - ANEMIA IN CHRONIC KIDNEY DISEASE Status: Chronic (6) Anxiety and depression Code(s): F41.8 - OTHER SPECIFIED ANXIETY DISORDERS Status: Chronic (7) CAD (coronary artery disease) Code(s): I25.10 - ATHSCL HEART DISEASE OF [place] CORONARY ARTERY W/O ANG PCTRS Status: Chronic (8) Chronic anticoagulation Code(s): Z79.01 - SKILLED NURSING (CURRENT) USE OF ANTICOAGULANTS Status: Chronic (9) Depression Code(s): F32.9 - MAJOR DEPRESSIVE DISORDER, SINGLE EPISODE, UNSPECIFIED Status : Chronic (10) Diabetes mellitus type 2 Code(s): E11.9 - TYPE 2 DIABETES MELLITUS WITHOUT COMPLICATIONS Status: Chronic Comment: (11) Dyslipidemia Code(s): E78.5 - HYPERLIPIDEMIA, UNSPECIFIED Status: Chronic (12) ESRD (end stage renal disease) on dialysis Code(s): N18.6 - END STAGE RENAL DISEASE; Z99.2 - DEPENDENCE ON RENAL DIALYSIS Status: Chronic Comment: Dr Rivera (13) GERD (gastroesophageal reflux disease) Code(s): K21.9 - GASTRO-ESOPHAGEAL REFLUX DISEASE WITHOUT ESOPHAGITIS Status: Chronic (14) H/O deep venous thrombosis Code(s): Z86.718 - PERSONAL HISTORY OF OTHER VENOUS THROMBOSIS AND EMBOLISM Status: Chronic (15) H/O sick sinus syndrome Code(s): Z86.79 - PERSONAL HISTORY OF OTHER DISEASES OF THE CIRCULATORY SYSTEM Status: Chronic (16) Hx of below knee amputation Code(s): Z89.519 - ACQUIRED ABSENCE OF UNSPECIFIED LEG BELOW KNEE Status: Chronic Qualifiers: Laterality: right Qualified Code(s): Z89.511 - Acquired absence of right leg below knee (17) Hypertension Code(s): I10 - ESSENTIAL (PRIMARY) HYPERTENSION Status: Chronic (18) PVD (peripheral vascular disease) Code(s): I73.9 - PERIPHERAL VASCULAR DISEASE, UNSPECIFIED Status: Chronic (19) Secondary hyperparathyroidism of renal origin Code(s): N25.81 - SECONDARY HYPERPARATHYROIDISM OF RENAL ORIGIN Status: Acute (20) Swallowing dysfunction Code(s): R13.10 - DYSPHAGIA, UNSPECIFIED Status: Chronic (21) Thalassemia minor Code(s): D56.3 - THALASSEMIA MINOR Status: Chronic (22) Hypotension Status: Resolved (23) Warfarin-induced coagulopathy Code(s): D68.9 - COAGULATION DEFECT, UNSPECIFIED; T45.515A - ADVERSE EFFECT OF ANTICOAGULANTS, INITIAL ENCOUNTER Status: Resolved (24) Hypoglycemia Code(s): E16.2 - HYPOGLYCEMIA, UNSPECIFIED Status: Acute - Plan cont current plan of care, plan discussed w/ family, continue antibiotics * medication reviewed as below * symptomatic treatment. * today plan for AVF? * prognosis is very poor * continue meropenam and vancomycin. Review of Systems - Review of Systems Other: unable to review due to dementia - Medications/Allergies Allergies/Adverse Reactions: Allergies Allergy/AdvReac Type Severity Reaction Status Date / Time [facility] Allergy Severe Anaphylaxis Uncoded 04/26/17 12:23 Medications: Current Medications Acetaminophen (Tylenol) 650 mg KS Q4H PRN PRN Reason: Headache/Fever or Pain Last Admin: 05/10/17 18:34 Dose: 650 mg Acetaminophen (Tylenol) 650 mg PO Q4H PRN PRN Reason: Headache/Fever or Pain Last Admin: 05/09/17 03:44 Dose: 650 mg Albuterol/Ipratropium (Duoneb) 3 ml NEB [id number] PRN PRN Reason: SOB &/or Wheezing Atorvastatin Calcium (Lipitor) 20 mg PO HS [facility] Last Admin: 05/10/17 21:38 Dose: Not Given Bisacodyl (Dulcolax) 10 mg KS Q24H PRN PRN Reason: Constipation Dextrose/Water (Dextrose 50%) 25 gm SLOW IVP PRN PRN PRN Reason: Hypoglycemia Last Admin: 05/10/17 11:26 Dose: 25 gm Epoetin Willem (Procrit) 4,000 units SC Q7D [facility] Last Admin: 05/07/17 14:43 Dose: 4,000 units Fentanyl (Duragesic) 12 mcg TD Q3D [facility] Last Admin: 05/10/17 17:23 Dose: 12 mcg Ferrous Sulfate (Feosol) 325 mg PO DAILY [facility] Last Admin: 05/11/17 10:14 Dose: Not Given Glucagon (Glucagon) 1 mg IM PRN PRN PRN Reason: Hypoglycemia Last Admin: 05/08/17 05:03 Dose: 1 mg Guaifenesin (Robitussin Sf) 200 mg PO Q4H PRN PRN Reason: Cough Heparin Sodium (Porcine) (Heparin Lock Flush 100 Units/Ml) 500 units IV PRN PRN PRN Reason: Heparin Flush Last Admin: 05/10/17 11:33 Dose: 500 unit Dextrose/Water (D5w) 1,000 mls @ 0 mls/hr IV .Q0M PRN; As Directed PRN Reason: Hypoglycemia Dextrose/Water (Dextrose 10% In Water) 1,000 mls @ 50 mls/hr IV .Q20H [facility] Last Admin: 05/11/17 06:18 Dose: Not Given Vancomycin HCl 1.25 gm/ Sodium (Chloride) 250 mls @ 166.667 mls/hr IVPB WILLCALL SHANA Vancomycin HCl 1 gm/ Device 200 mls @ 200 mls/hr IVPB WILLCALL SHANA Vancomycin HCl 750 mg/ Sodium (Chloride) 250 mls @ 250 mls/hr IVPB WILLCALL SHANA Vancomycin HCl 500 mg/ Sodium (Chloride) 100 mls @ 100 mls/hr IVPB WILLCALL SHANA Meropenem 500 mg/ Sodium (Chloride) 100 mls @ 200 mls/hr IVPB 1200 [facility] Metoprolol Tartrate (Lopressor) 12.5 mg PO BID [facility] Last Admin: 05/11/17 10:15 Dose: Not Given Mineral Oil/White Petrolatum (Eucerin Cream) 0 gm TOP BIDPRN PRN PRN Reason: Dry Skin Miscellaneous Medication (Pharmacy To Dose) 0 each IVPB ASDIR PRN PRN Reason: Pharmacy to Dose VANCOMYCIN Hold Vancomycin For (Level >20) 0 each FS .AT DIALYSIS [facility] Ondansetron HCl (Zofran Odt) 4 mg PO Q6H PRN PRN Reason: Nausea/Vomiting Ondansetron HCl (Zofran) 4 mg IVP Q6H PRN PRN Reason: Nausea/Vomiting Pantoprazole Sodium (Protonix) 40 mg PO DAILY [facility] Last Admin: 05/11/17 10:15 Dose: Not Given Polyethylene Glycol (Miralax) 17 gm PO DAILY PRN PRN Reason: Constipation Saccharomyces Boulardii (Florastor) 250 mg PO DAILY [facility] Last Admin: 05/11/17 10:15 Dose: Not Given Sertraline HCl (Zoloft) 100 mg PO DAILY [facility] Last Admin: 05/11/17 10:15 Dose: Not Given Sevelamer Carbonate (Renvela) 800 mg PO TID-[facility] Last Admin: 05/11/17 10:14 Dose: Not Given Sodium Chloride (Flush - Normal Saline) 10 ml IVF Q12HR [facility] Last Admin: 05/11/17 10:15 Dose: Not Given Sodium Chloride (Flush - Normal Saline) 10 ml IVF PRN PRN PRN Reason: Saline Flush Last Admin: 05/09/17 13:29 Dose: 10 ml Tramadol HCl (Ultram) 50 mg PO Q12H PRN PRN Reason: Pain Last Admin: 05/09/17 20:18 Dose: 50 mg Vitamin B Complex/Vit C/Folic Acid (Nephro-Leeann Tablet) 1 tab PO DAILY [facility] Last Admin: 05/11/17 10:14 Dose: Not Given
[2017-05-11] MEDS ORDERED: Meropenem 500 MG in Sodium Chloride 0.9% 100 ML IVPB SCH (12:00)
[2017-05-11] MEDS: Vancomycin HCl 1 GM in Premix Bag 1 BAG IVPB SCH (12:09)
[2017-05-11] MEDS ORDERED: Activase 2 MG VIAL CATH SCH (13:15)
--- NOTE | 2017-05-11 13:41 | PRG ---
DATE OF SERVICE: 05/11/2017 SUBJECTIVE: Today, I have talked to the patient's daughter per telephone and another daughter in rson. Recommendation was to be for consideration of withdrawal a dialysis, patient is nonresponsive , noncommunicative. I have talked to Dr. Francois Rivera about this. Dr. Rivera is in agreement. P alliative Care has already talked to the family. They do not wish to talk to him again. Family is in the process of making a decision about the patient's care. Currently, the patient remains unresp onsive with labored respirations. She is a DNR. We will await their decision regarding care.
[2017-05-11] MEDS: Atorvastatin Calcium 20 MG TAB PO SCH (20:09)
[2017-05-12] MEDS: Dextrose 10% in Water 1,000 ML IV SCH ×2 (00:17→00:50)
[2017-05-12 01:55] VITALS: BP 119/60
[2017-05-12 06:43] LABS: #Eosinphils 0.1 thou/uL (0.0-0.7); #Lymphocytes 1.1 thou/uL (1.20-3.40); #Monocytes 0.6 thou/uL (0.11-0.59); #Neutrophils 7.4 thou/uL (1.40-6.50); %Basophils 0.2 % (0.0-1.0); %Eosinophils 1.4 % (0.0-10.0); %Lymphocytes 11.4 % (21.0-51.0); %Monocytes 6.9 % (0.0-10.0); Hematocrit 26.6 % (36.0-47.0); Red Blood Cell (RBC) Count 3.17 mill/uL (4.20-5.40); White Blood Cell (WBC) Count 9.3 thou/uL (4.8-10.8)
[2017-05-12 06:49] LABS: Prothrombin Time 15.3 SEC (12.0-14.7)
[2017-05-12 06:59] LABS: Anion Gap 14 mmol/L (10-20); Carbon Dioxide 26 mmol/L (23-31); Chloride 100 mmol/L (98-107)
[2017-05-12 07:28] VITALS: TEMP 97.6
--- NOTE | 2017-05-13 23:04 | DIS ---
DISCHARGE DISPOSITION: To Inpatient Hospice. PRIMARY DISCHARGE DIAGNOSES: Acute renal failure/end-stage renal disease; acute encephalopathy with advanced dementia; metabolic acidosis; history of deep venous thrombosis; Diabetes mellitus, type 2; coronary artery disease; chronic anemia; peripheral vascular disease; dysphagia and very advanced dementia. PROCEDURES DONE DURING HOSPITALIZATION: Urine culture grew Morganella morganii sensitive to carbapenems and amikacin. Blood cultures x4, no growth. Discharge H\T\H are 8 and 26, platelet count is 175. Admitting BUN and creatinine were 76 and 9.5 with serum bicarbonate of 17. BNP was 1629. DISCHARGE MEDICATIONS: Morphine p.r.n. for pain/comfort. ALLERGIES: [facility] dialysis machine. INPATIENT CONSULTS: Dr. Fisher for Pulmonology, Dr. Gutierrez for Infectious Disease, Dr. Francois Rivera for Nephrology. BRIEF COURSE DURING HOSPITALIZATION: The patient initially got admitted on 05/2017 after she was sent from [facility] with fever and low oxygen saturations. On arrival, the patient was in acute renal failure. Her initial blood pressure readings were 72/48 with a temperature of 105 rectally. She was treated for severe sepsis with acute organ dysfunction, septic shock. She was on broad spectrum IV antibiotics and a nephrology consultation with Dr. Francois Rivera was requested. She was initiated on hemodialysis. The patient' s encephalopathy was secondary to multiple factors as mentioned above continued all through her stay. She was not oriented. In view of her advanced dementia, hemodialysis was stopped. Palliative care consultation was requested. Family has agreed for inpatient hospice. A bed has become available at [facility] and she will be shortly discharged. Her overall prognosis is very poor. Please see a [id number] documentation for the day of discharge on [email or web address]. [facility]ENTERJanel
== END 2017-05-12 08:57 | disposition hospice, inpatient (51) | DRG 871 ==
LOC: ERS 08:14 → IMCU/EMU 11:52 → T4-A 04-28 11:41
PROVIDERS: ADMIT Internal Medicine; ATTEND Internal Medicine
PROC: 5A1D60Z (ICD-10-PCS; 2017-04-27)
PROC: 30233N1 Transfusion of Nonautologous Red Blood Cells into Peripheral Vein, Percutaneous Approach (ICD-10-PCS; 2017-04-30)
PROC: 06HM33Z Insertion of Infusion Device into Right Femoral Vein, Percutaneous Approach (ICD-10-PCS; principal; 2017-05-09)
DX: A41.9 Sepsis, unspecified organism (principal); N18.6 End stage renal disease; J96.01 Acute respiratory failure with hypoxia; N17.9 Acute kidney failure, unspecified; G93.41 Metabolic encephalopathy; E87.2 Acidosis; E44.0 Moderate protein-calorie malnutrition; D68.9 Coagulation defect, unspecified; I12.0 Hypertensive chronic kidney disease with stage 5 chronic kidney disease or end stage renal disease; N39.0 Urinary tract infection, site not specified; N25.81 Secondary hyperparathyroidism of renal origin; I82.90 Acute embolism and thrombosis of unspecified vein; E11.22 Type 2 diabetes mellitus with diabetic chronic kidney disease; Z99.2 Dependence on renal dialysis; Z86.718 Personal history of other venous thrombosis and embolism; Z86.711 Personal history of pulmonary embolism; Z79.01 Long term (current) use of anticoagulants; F03.90 Unspecified dementia, unspecified severity, without behavioral disturbance, psychotic disturbance, mood disturbance, and anxiety; I25.10 Atherosclerotic heart disease of native coronary artery without angina pectoris; E11.51 Type 2 diabetes mellitus with diabetic peripheral angiopathy without gangrene; Z89.511 Acquired absence of right leg below knee; Z91.15 Patient's noncompliance with renal dialysis; K21.9 Gastro-esophageal reflux disease without esophagitis; Z95.0 Presence of cardiac pacemaker; H54.42 Blindness, left eye, normal vision right eye; D56.3 Thalassemia minor; Z88.8 Allergy status to other drugs, medicaments and biological substances; R65.20 Severe sepsis without septic shock; F41.9 Anxiety disorder, unspecified; F32.9 Major depressive disorder, single episode, unspecified; D63.1 Anemia in chronic kidney disease; Z66 Do not resuscitate; Z51.5 Encounter for palliative care; Z68.24 Body mass index [BMI] 24.0-24.9, adult; B96.89 Other specified bacterial agents as the cause of diseases classified elsewhere; E11.649 Type 2 diabetes mellitus with hypoglycemia without coma; T45.515A Adverse effect of anticoagulants, initial encounter; E78.5 Hyperlipidemia, unspecified; I25.5 Ischemic cardiomyopathy; Z86.73 Personal history of transient ischemic attack (TIA), and cerebral infarction without residual deficits; K59.00 Constipation, unspecified; I48.2 Chronic atrial fibrillation
CPT/HCPCS: 36415; 36416; 36430; 51702; 71010; 76770; 80051; 80053; 80069; 80202; 81003; 81015; 82010; 82533; 83605; 83735; 83880; 85025; 85610; 85730; 86140; 86850; 86900; 86901; 87040; 87077; 87086; 87186; 87340; 90935; 94760; 96361; 96365; 96375; 99292; A4216; C1752; G0257; G8996-GN-CK; G8996-GN-CL; G8997-GN-CI; G8997-GN-CL; J0131; J0278; J1610; J1642; J1644; J1885; J2001; J2185; J2543; J2997; J3010; J3370; J3430; J7050; P9016; Q4081

== ENCOUNTER 2017-05-12 09:06 | Inpatient (IN) | payer OTHER ==
[2017-05-12] MEDS ORDERED: Acetaminophen 325 MG TAB PO PRN (09:36)
[2017-05-12] MEDS ORDERED: Lorazepam 1 MG TAB PO PRN (09:36)
[2017-05-12] MEDS ORDERED: Acetaminophen 650 MG Suppository PR PRN (09:36)
[2017-05-12] MEDS ORDERED: Loperamide HCl 2 MG CAP PO PRN (09:36)
[2017-05-12] MEDS ORDERED: chlorproMAZINE HCl 50 MG/2 ML AMP IM PRN ×2 (09:36)
[2017-05-12] MEDS ORDERED: Ondansetron HCl/PF 4 MG/2 ML Vial IVP PRN (09:36)
[2017-05-12] MEDS ORDERED: Zolpidem Tartrate 5 MG TAB PO PRN (09:36)
[2017-05-12] MEDS ORDERED: Haloperidol Lactate 5 MG/ML VIAL SLOW IVP PRN (09:36)
[2017-05-12] MEDS ORDERED: Ondansetron ODT 4 MG TAB PO PRN (09:36)
[2017-05-12] MEDS ORDERED: Senokot 8.6 MG TAB PO PRN (09:36)
[2017-05-12] MEDS ORDERED: Lorazepam 2 MG/ML VIAL SLOW IVP PRN ×2 (09:36)
[2017-05-12] MEDS ORDERED: diphenhydrAMINE HCl 25 MG CAP PO PRN (09:36)
[2017-05-12] MEDS ORDERED: Milk Of Magnesia 30 ML UDCUP PO PRN (09:36)
[2017-05-12] MEDS ORDERED: diphenhydrAMINE HCl 50 MG/ML 1 ML VIAL IVP PRN (09:36)
[2017-05-12] MEDS ORDERED: Scopolamine 1.5 mg/72 hour Patch TOP PRN ×2 (09:36)
[2017-05-12] MEDS ORDERED: ALPRAZolam 0.25 MG TAB PO PRN (09:36)
[2017-05-12] MEDS ORDERED: Hyoscyamine Sulfate SL 0.125 mg Tablet SL PRN (09:36)
[2017-05-12] MEDS ORDERED: chlorproMAZINE HCl 25 MG in Sodium Chloride 0.9% 50 ML IVPB PRN (09:36)
[2017-05-12] MEDS ORDERED: Promethazine HCl 25 MG SUPP PR PRN (09:36)
[2017-05-12] MEDS ORDERED: Ibuprofen 200 MG TAB PO PRN (10:21)
[2017-05-12] MEDS: Morphine Sulfate 10 mg/0.5 ml Oral Syringe SL PRN ×2 (11:49→21:30)
[2017-05-12 12:53] VITALS: BMI 22.0
[2017-05-12] MEDS: Lorazepam 1 MG TAB PO PRN ×2 (13:05→18:26)
[2017-05-12 21:31] VITALS: TEMP 98.1
[2017-05-13] MEDS: Lorazepam 1 MG TAB PO PRN (07:07)
[2017-05-13] MEDS: Morphine Sulfate 10 mg/0.5 ml Oral Syringe SL PRN (08:19)
--- NOTE | 2017-05-13 14:06 | PDOC.PN ---
- Subjective Encounter Start Date: 05/12/17 Encounter Start Time: 10:00 Subjective: not oriented, moaning, no resp distress - Objective Resuscitation Status: Resuscitation Status DNR:Do Not Resuscitate MAR Reviewed: Yes Vital Signs & Weight: Vital Signs (12 hours) Temp Pulse Resp 05/13/17 08:00 98.1 F 75 18 Weight Weight 113 lb Phys Exam - Physical Examination HEENT: sclera anicteric dry mucosa Neck: no JVD, supple Respiratory: no wheezing, no rales Cardiovascular: RRR, no significant murmur Gastrointestinal: soft, non-tender, positive bowel sounds Musculoskeletal: pulses present, edema present Neurological: non-focal Dx/Plan (1) Encephalopathy acute Code(s): G93.40 - ENCEPHALOPATHY, UNSPECIFIED Status: Acute (2) Hypoglycemia Code(s): E16.2 - HYPOGLYCEMIA, UNSPECIFIED Status: Acute (3) Metabolic acidosis Code(s): E87.2 - ACIDOSIS Status: Acute (4) Secondary hyperparathyroidism of renal origin Code(s): N25.81 - SECONDARY HYPERPARATHYROIDISM OF RENAL ORIGIN Status: Chronic (5) Anemia of renal disease Code(s): D63.1 - ANEMIA IN CHRONIC KIDNEY DISEASE Status: Chronic (6) CAD (coronary artery disease) Code(s): I25.10 - ATHSCL HEART DISEASE OF [place] CORONARY ARTERY W/O ANG PCTRS Status: Chronic (7) Diabetes mellitus type 2 Code(s): E11.9 - TYPE 2 DIABETES MELLITUS WITHOUT COMPLICATIONS Status: Chronic Comment: (8) Dyslipidemia Code(s): E78.5 - HYPERLIPIDEMIA, UNSPECIFIED Status: Chronic (9) ESRD (end stage renal disease) on dialysis Code(s): N18.6 - END STAGE RENAL DISEASE; Z99.2 - DEPENDENCE ON RENAL DIALYSIS Status: Chronic Comment: Dr Rivera (10) H/O deep venous thrombosis Code(s): Z86.718 - PERSONAL HISTORY OF OTHER VENOUS THROMBOSIS AND EMBOLISM Status: Chronic (11) Hx of below knee amputation Code(s): Z89.519 - ACQUIRED ABSENCE OF UNSPECIFIED LEG BELOW KNEE Status: Chronic Qualifiers: (12) Hypertension Code(s): I10 - ESSENTIAL (PRIMARY) HYPERTENSION Status: Chronic Qualifiers: Hypertension type: essential hypertension Qualified Code(s): I10 - Essential (primary) hypertension (13) PVD (peripheral vascular disease) Code(s): I73.9 - PERIPHERAL VASCULAR DISEASE, UNSPECIFIED Status: Chronic (14) Swallowing dysfunction Code(s): R13.10 - DYSPHAGIA, UNSPECIFIED Status: Chronic (15) Thalassemia minor Code(s): D56.3 - THALASSEMIA MINOR Status: Chronic (16) Dementia Code(s): F03.90 - UNSPECIFIED DEMENTIA WITHOUT BEHAVIORAL DISTURBANCE Status: Chronic Comment: very advanced dementia - Plan pt is in hospice with comfort care -: daughter at bedside, have given updates -: awaiting inpt hospice bed -: HD held, poor prognosis -: finger stick glucose are labile * .
--- NOTE | 2017-05-13 14:09 | PDOC.PN ---
- Subjective Encounter Start Date: 05/13/17 Encounter Start Time: 09:00 Subjective: lethargic, not oriented, not in distress - Objective Resuscitation Status: Resuscitation Status DNR:Do Not Resuscitate MAR Reviewed: Yes Vital Signs & Weight: Vital Signs (12 hours) Temp Pulse Resp 05/13/17 08:00 98.1 F 75 18 Weight Weight 113 lb Phys Exam - Physical Examination HEENT: PERRLA, sclera anicteric Neck: no JVD, supple Respiratory: no wheezing, no rales Cardiovascular: RRR, no significant murmur Gastrointestinal: soft, non-tender, positive bowel sounds Musculoskeletal: pulses present Neurological: non-focal Dx/Plan (1) Encephalopathy acute Code(s): G93.40 - ENCEPHALOPATHY, UNSPECIFIED Status: Acute (2) Hypoglycemia Code(s): E16.2 - HYPOGLYCEMIA, UNSPECIFIED Status: Acute (3) Metabolic acidosis Code(s): E87.2 - ACIDOSIS Status: Acute (4) Secondary hyperparathyroidism of renal origin Code(s): N25.81 - SECONDARY HYPERPARATHYROIDISM OF RENAL ORIGIN Status: Chronic (5) Anemia of renal disease Code(s): D63.1 - ANEMIA IN CHRONIC KIDNEY DISEASE Status: Chronic (6) CAD (coronary artery disease) Code(s): I25.10 - ATHSCL HEART DISEASE OF [place] CORONARY ARTERY W/O ANG PCTRS Status: Chronic (7) Diabetes mellitus type 2 Code(s): E11.9 - TYPE 2 DIABETES MELLITUS WITHOUT COMPLICATIONS Status: Chronic Comment: (8) Dyslipidemia Code(s): E78.5 - HYPERLIPIDEMIA, UNSPECIFIED Status: Chronic (9) ESRD (end stage renal disease) on dialysis Code(s): N18.6 - END STAGE RENAL DISEASE; Z99.2 - DEPENDENCE ON RENAL DIALYSIS Status: Chronic Comment: Dr Rivera (10) H/O deep venous thrombosis Code(s): Z86.718 - PERSONAL HISTORY OF OTHER VENOUS THROMBOSIS AND EMBOLISM Status: Chronic (11) Hx of below knee amputation Code(s): Z89.519 - ACQUIRED ABSENCE OF UNSPECIFIED LEG BELOW KNEE Status: Chronic Qualifiers: (12) Hypertension Code(s): I10 - ESSENTIAL (PRIMARY) HYPERTENSION Status: Chronic Qualifiers: Hypertension type: essential hypertension Qualified Code(s): I10 - Essential (primary) hypertension (13) PVD (peripheral vascular disease) Code(s): I73.9 - PERIPHERAL VASCULAR DISEASE, UNSPECIFIED Status: Chronic (14) Swallowing dysfunction Code(s): R13.10 - DYSPHAGIA, UNSPECIFIED Status: Chronic (15) Thalassemia minor Code(s): D56.3 - THALASSEMIA MINOR Status: Chronic (16) Dementia Code(s): F03.90 - UNSPECIFIED DEMENTIA WITHOUT BEHAVIORAL DISTURBANCE Status: Chronic Comment: very advanced dementia - Plan will be shortly discharged to inpt hospice facility -: daughter at bedside given updates * .
== END 2017-05-13 09:30 | disposition hospice, inpatient (51) | DRG 871 ==
LOC: T4-A 09:06
PROVIDERS: ADMIT Internal Medicine; ATTEND Internal Medicine
DX: A41.9 Sepsis, unspecified organism (principal); N18.6 End stage renal disease; G93.41 Metabolic encephalopathy; E87.2 Acidosis; I12.0 Hypertensive chronic kidney disease with stage 5 chronic kidney disease or end stage renal disease; N39.0 Urinary tract infection, site not specified; N25.81 Secondary hyperparathyroidism of renal origin; F03.90 Unspecified dementia, unspecified severity, without behavioral disturbance, psychotic disturbance, mood disturbance, and anxiety; E11.22 Type 2 diabetes mellitus with diabetic chronic kidney disease; Z99.2 Dependence on renal dialysis; Z86.711 Personal history of pulmonary embolism; Z86.718 Personal history of other venous thrombosis and embolism; Z79.01 Long term (current) use of anticoagulants; I25.10 Atherosclerotic heart disease of native coronary artery without angina pectoris; Z89.511 Acquired absence of right leg below knee; Z91.15 Patient's noncompliance with renal dialysis; K21.9 Gastro-esophageal reflux disease without esophagitis; Z95.0 Presence of cardiac pacemaker; H54.42 Blindness, left eye, normal vision right eye; D56.3 Thalassemia minor; Z88.8 Allergy status to other drugs, medicaments and biological substances; R65.20 Severe sepsis without septic shock; E11.42 Type 2 diabetes mellitus with diabetic polyneuropathy; D63.1 Anemia in chronic kidney disease; E11.649 Type 2 diabetes mellitus with hypoglycemia without coma
CPT/HCPCS: J2270; J3230; J7050